=== PATIENT | female | born 1950 | race Caucasian/White ===

== ENCOUNTER 2025-02-12 13:04 | Outpatient (CLI) | payer MEDICARE, MEDICAID, SELFPAY ==
--- OUTSIDE RECORDS SUMMARY | 2025-02-12 13:15 | XMS_ITS | Clinical Summary ---
Author Organization [facility] Virtual Care Address [address] [place] [id number] Phone Care Team Providers Care Registered Account Administrator Name Role Phone Oumar Sarkar DO Primary Care Provider [phone] Osmin Guo MD Unavailable [phone] Oumar Kaur MD Unavailable [phone] Allergies Active Allergy Reactions Criticality Noted Date Comments Adhesive Rash Medium 08/24/2021 Codeine Vomiting Low Propoxyphene-Acetaminophen Vomiting Low 8 Latex Redness Medium 12/07/2017 Gloves Penicillins Rash Medium Sulfa (Sulfonamide Antibiotics) Rash Medium Ketorolac Vomiting Low 11/23/2017 Medications allopurinol (ZYLOPRIM) 300 mg tabletIndication s:prevention of acute gout attack Take 1 tablet (300 mg total) by mouth every morning 7 Active ALPRAZolam (XANAX) 0.25 mg tabletIndication s:anxiety Take 1 tablet (0.25 mg total) by mouth as needed 0 8 Active fluticasone (FLONASE) 50 mcg/actuation nasal sprayIndications :Allergic Rhinitis Administer 2 sprays into each nostril every morning 7 Active pregabalin (LYRICA) 50 mg capsuleIndicatio ns:Fibromyalgia, back pain, Joint pain Take 1 capsule (50 mg total) by mouth 3 (three) times a day Active meclizine (ANTIVERT) 25 mg tablet Take 1 tablet (25 mg total) by mouth daily Active metoprolol (LOPRESSOR) 100 mg tabletIndication s:hypertension Take 0.5 tablets (50 mg total) by mouth 2 (two) times a day 1 Active mupirocin (BACTROBAN) 2 % ointment APPLY TOPICALLY TO AFFECTED AREA TWICE DAILY FOR 10 DAYS. 1 Active nitroglycerin (NITROSTAT) 0.4 mg SL tablet DISSOLVE ONE TABLET UNDER THE TONGUE EVERY 5 MINUTES NEEDED FOR CHEST PAIN. DO NOT EXCEED A TOTAL OF 3 DOSES IN 15 MINUTES 1 Active omeprazole (PriLOSEC) 20 mg capsuleIndicatio ns:Treatment of Non-Bleeding Gastric Disorder Take 1 capsule (20 mg total) by mouth every morning 1 Active felodipine (PLENDIL) 5 mg 24 hr tabletIndication s:hypertension Take 1 tablet (5 mg total) by mouth every morning 1 Active ascorbic acid (VITAMIN C) 500 mg tablet,chewableI ndications:Vitam in C Deficiency Take 1 tablet/chew tab (500 mg total) by mouth every morning Active cholecalciferol (VITAMIN D-3) 25 mcg (1,000 unit) tabletIndication s:Vitamin D Deficiency Take 1 tablet (1,000 Units total) by mouth 2 (two) times a day Active cyanocobalamin (Vitamin B-12) 1,000 mcg tabletIndication s:Prevention of Vitamin B12 Deficiency Take 1 tablet (1,000 mcg total) by mouth every morning Active multivitamin capsuleIndicatio ns:Vitamin Deficiency Prevention Take 1 capsule by mouth every morning Active garlic 1,000 mg capsule Take 1 capsule by mouth as needed Active acetaminophen (TYLENOL) 500 mg tablet Take 1 tablet (500 mg total) by mouth every 6 (six) hours as needed for pain 240 tablet 2 Active lisinopriL (PRINIVIL,ZESTRI L) 20 mg tablet Take 1 tablet (20 mg total) by mouth daily 2 Active cyclobenzaprine (FLEXERIL) 10 mg tablet Take 1 tablet (10 mg total) by mouth nightly as needed for muscle spasms 30 tablet 2 2 Active rosuvastatin (CRESTOR) 10 mg tablet Take 1 tablet (10 mg total) by mouth daily 2 Active naloxone (NARCAN) 4 mg/actuation spray,non-aeroso l Administer 1 spray into affected nostril(s) as needed for opioid reversal or respiratory depression Call 911. Administer a single spray in one nostril. Repeat every 3 minutes as needed if no or minimal response. 1 each 2 Active furosemide (LASIX) 40 mg tablet 4 Active isosorbide mononitrate ER (IMDUR) 30 mg 24 hr tablet 4 Active semaglutide (OZEMPIC) 2 mg/dose (8 mg/3 mL) pen injector injection Inject 2 mg under the skin once a week 2 mL 6 5 Active oxyBUTYnin (DITROPAN) 5 mg tabletIndication s:Urinary urgency,Urinary frequency Take 1 tablet by mouth twice daily 180 tablet 5 Active Active Problems Problem Noted Date Diagnosed Date History of endometrial cancer 11/25/2023 Left hip pain 07/22/2022 Acute pain of both knees 07/22/2022 Lumbar facet arthropathy 03/30/2022 Endometrial cancer 07/07/2021 Overview (07/13/2021): Added automatically from request for surgery [id number] Trochanteric bursitis of right hip 05/04/2021 Cervicalgia 09/01/2020 Cervical radiculopathy 09/01/2020 Sacroiliitis 03/12/2020 Degenerative lumbar spinal stenosis 12/11/2019 DDD (degenerative disc disease), lumbar 12/11/19 20 Lumbar radiculopathy 12/11/2019 Insomnia secondary to chronic pain 12/11/2019 detention (current) use of opiate analgesic 05/15 Lumbar post-laminectomy [id number] d 06/20/2018 Fibromyalgia 06/20/2018 Chronic bilateral low back pain with right-sided sciatica 12/15/2017 Encounters Date Type Department Care Team Description 02/10/2025 Documentation [facility] [address] [facility] [address] [place] [address] Marv Ashraf MD 02/05/2025 12:13 PM CDT - 02/05/2025 11:59 PM CDT Hospital Encounter [facility] [address] [place] [address] Spinal stenosis, lumbar region without neurogenic claudication; Spinal stenosis, lumbar region with neurogenic claudication; Spondylosis without myelopathy or radiculopathy, lumbar region Discharge Disposition: Discharge to home or self care 01/31/2025 Telephone [facility] [address] [facility] [address] [place] [address] Marv Ashraf MD 12/11/2024 2:30 PM CDT Office Visit [facility] at [address] [place] [address] Zenon Ruvalcaba, Type 2 diabetes mellitus with other specified complication, without long-term current use of insulin (HCC) (Primary Dx); Diabetic polyneuropathy associated with type 2 diabetes mellitus (HCC); Hypertension associated with type 2 diabetes mellitus (HCC); Hyperlipidemia associated with type 2 diabetes mellitus (HCC) from Last 3 Months Immunizations Immunization Administration Dates Next Due Influenza, Quadrivalent, Hig h Dose, Preservative Free, Intrr 07/30/2021 Influenza, Quadrivalent, Spl it, Preservative Free, Intramuscular 06/25/2020,06/12/2019,07/02/2018,07/02 Pneumococcal Conjugate PCV 13 06/25/2020, 019 Surgical History Surgery Date Site/Laterality Comments LAMINECTOMY 08/14/1999 - 08/13/2000 BACK SURGERY NASAL SEPTUM SURGERY 08/14/2013 - 08/13/2014 placement septal button-s/p removal 2015 Medical History Medical History Date Comments Sleep apnea Fatigue Wears glasses Sinus infection Wears dentures Swelling of both ankles Frequent urination Numbness Hypertension Chronic pain disorder Pt. uses c ane Peripheral neuropathy Gout Endometrial cancer (HCC) 06/2021 Family History Medical History Relation Name Comments Heart attack Daughter Diabetes Father Heart disease Father Hypertension Father Lung cancer Father COD at age 72 Stroke Father Hypertension Mother Kidney disease Mother Diabetes Mother's Brother Hypertension Mother's Brother 4 MU's Diabetes Mother's Sister Hypertension Mother's Sister 2 MA's Arthritis Other Cancer Other Stroke Paternal Grandfather Relation Name Status Comments Daughter Father Mother Mother's Brother Mother's Sister Other Paternal Grandfather Social History Tobacco Use Types Packs/Day Years Used Date Smoking Tobacco: Former Cigarettes 0.5 10 1 970 - 1979 Smokeless Tobacco: Never Tobacco Cessation:Counseling Given: Not Answered Comments:quit 30 years ago Alcohol Use Standard Drinks/Week Comments No 0 (1 standard drink = 0.6 oz pur e alcohol) AUDIT-C Answer Date Recorded Q1: How often do you have a drink containing alc ohol? Never 08/27/2021 Q2: How many drinks containi ng alcohol do you have on a typical day when you are drinking? 1 or 2 08/27/2021 Q3: How often do you have six or more drinks on one occasion? Never 08/27/2021 PHQ-2 Answer Date Recorded PHQ-2 Total Score (If total score is 3 or more points, staff should administer the PHQ-9) 0 03/03/2021 Comments No Sex and Gender Information Value Date Recorded Sex Assigned at Not on file Legal Sex Female 1:36 PM SLATE ROOFER Gender Identity Not on file Sexual Orientation Not on file Occupation Industry Job Start Date Job End Date retired/disabled Not on file Not on file Not on file Obstetrics History Para Term AB IAB SAB Ectopic Multiple Livin g Live Births 2 2 2 0 0 0 0 0 1 2 2 Date Outcome GA Total Labor Labor/2nd/3rd Weight Sex Type Anes PTL Jacqueline A1 A5 Name Clin Term Term Last Filed Vital Signs Vital Sign Reading Time Taken Comments Blood Pressure 134/62 12/11/2024 2:29 PM CDT Pulse 67 12/11/2024 2:29 PM CDT Temperature 36.4 C (97.6 F) 06/04/2024 10:50 AM CDT Respiratory Rate 16 11/29/2023 10:45 AM CDT Oxygen Saturation 94% 06/04/2024 10:50 AM CDT Inhaled Oxygen Concentration - - Weight 129.5 kg (285 lb 8 oz) 12/11/2024 2:29 PM CDT Height 165.1 cm (5' 5) 12/11/2024 2:29 PM CDT Body Mass Index 47.51 12/11/2024 2:29 PM CDT Plan of Treatment Health Maintenance Due Date Last Done Comments Albumin Creatinine Ratio, Urine 1950 Breast Cancer Screening-Mammogram 1950 Osteoporosis Screening-Bone Density Scan 1950 Lipid Panel 1950 DTaP/Tdap/Td Vaccine (1 - Tdap) 1963 Hepatitis B Screening 1970 Zoster Vaccine (1 of 2) 2002 Well Visit 65+ 2017 Pneumococcal vaccine 65+ (2 of 2 - PPSV23) 08/20/2020 06/25/2020, 06/12/2019 Depression Screening 03/03/2022 03/03/2021, 11/25/2020, 11/25/2020, Additional history exists eGFR 08/24/2022 08/24/2021 Fall Risk Assessment 08/27/2022 08/27/2021 Covid-19 Vaccine ( - 2023-2 5 season) 2024 07/30/2021, 10/09/2020, 09/11/2020 Influenza Vaccine (#1) 2025 , 06/25/2020, 06/12/2019, Additional history exists Dilated Eye Exam 05/22/2025 05/22/2024 Hemoglobin A1C 06/12/2025 12/11/2024 Foot Exam 11/20/2025 11/20/2024 Colon Cancer Screening-Colonoscopy 08/18/2031 08/18/2021 Colon Cancer Screening-CT Colonography Discontinued 08/18/2021 Colon Cancer Screening-DNA Stool Discontinued 08/18/19 Colon Cancer Screening-FIT Discontinued 08/18/2021 Colon Cancer Screening-Sigmoidoscopy Discontinued 08/18/2021 Hepatitis C Screening Completed 08/27/2021 Goals Goal Patient Goal Type Associated Problems Recent Progress Patient-Stated? Author <enter goal here> General No change(2019 12:33 PM CDT) Yes Bing Aleman, RN Note: Walking Picking up grandchildren Bending Reaching Procedures Procedure Name Priority Date/Time Associated Diagnosis Comments EMG/NCV Routine 02/05/2025 1:53 PM CDT Spinal stenosis, lumbar region without neurogenic claudication Spinal stenosis, lumbar region with neurogenic claudication Spondylosis without myelopathy or radiculopathy, lumbar region POCT HEMOGLOBIN A1C Routine 12/11/2024 2 :35 PM CDT Diabetic polyneuropathy associated with type 2 diabetes mellitus (HCC) DIABETIC EYE EXAM Routine 05/22/2024 HEPATITIS C ANTIBODY Routine 08/27/2021 10:49 AM SLATE ROOFER EGFR Routine 08/24/2021 3:04 PM SLATE ROOFER Preoperative testing COLONOSCOPY 08/18/2021 3:16 PM SLATE ROOFER from Last 3 Months or Most Recently Relevant to Health Maintenance Results * EMG/NCV - (02/05/2025 1:53 PM CDT) Anatomical Region Laterality Modality EMG, EMG Impressions 02/05/2025 1:54 PM CDT History: This is a 74 years old female patient being evaluated for tingling and numbness of bilateral lower extremities. Nerve conduction studies: Left peroneal motor nerve conduction study when recording from the EDB showed normal DML, moderate low CMAP amplitude, normal motor nerve conduction velocity and absent F wave latency. Right peroneal motor nerve conduction study when recording from the EDB showed normal DML, moderately to severely low CMAP amplitudes when stimulated at ankle and below fibular head, no response when stimulated behind the knee, slightly slow motor nerve conduction velocity below the fibular head and normal F wave latency. Bilateral peroneal motor nerve conduction studies when recording from tibialis anterior showed normal DMLs, normal CMAP amplitudes, normal motor nerve conduction velocities. Left tibial motor nerve conduction study showed normal DML, markedly low CMAP amplitude when stimulated at ankle, no response when stimulated behind the knee, and normal F wave latency. Right tibial motor nerve conduction study did not induce any response. Bilateral sural and bilateral superficial peroneal antidromic sensory nerve conduction studies showed normal SNAP peak latencies, normal amplitudes and normal sensory nerve conduction velocities. Bilateral medial plantar and bilateral lateral plantar antidromic sensory nerve conduction studies did not induce any response. EMG studies: The concentric needle electrode examination was performed on bilateral tibialis anterior, gastrocnemius medialis, peroneus longus, vastus medialis and extensor digitorum brevis. There was no electrophysiologic evidence suggestive of acute or chronic denervation or reinnervation. The interference pattern is full in all muscle tested. Impression: This is an abnormal study. There was electrophysiologic evidence suggestive of: 1. 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 The needle EMG study of bilateral lower extremities did not show any ongoing denervation. Please note that the current study is complicated by edema of both feet and large bulk of lower extremities. It can cause similar abnormal finding or technical difficulty for the test. The clinical correlation is recommended. Davy Houser MD NEUROLOGY ORDERABLES Fin al Result * (ABNORMAL) POCT hemoglobin A1c (12/11/2024 2:35 PM CDT) Pathologist [facility] Hemoglobin A1C, POC 5.9(A) 4.0 - 5.6 % Blood 12/11/2024 2:35 PM CDT Zenon Ruvalcaba DO POINT OF CARE TEST ORDERABL ES Final Result * Diabetic Eye Exam (05/22/2024) 05/22/2024 Radha Bennett MD HEALTH MAINTENANCE Final Result * Hepatitis C antibody (08/27/2021 10:49 AM SLATE ROOFER) [facility] Hep C Ab Nonreactive Nonreactive [facility] Comment:Antibodies to HCV no t detected. Does NOT exclude the possibility of recent exposure to HCV. Blood 08/27/2021 10:4 9 AM SLATE ROOFER 08/27/2021 11:07 AM SLATE ROOFER Notinfile Unknown LAB MICROBIOLOGY - GENERAL ORD ERABLES Edited Result - Final [facility] Department [place] [address] * (ABNORMAL) eGFR (08/24/2021 3:04 PM SLATE ROOFER) [facility] eGFR 50(L) 90 - 130 mL/min/1. 73 m2 [facility] Comment: Interpretive Data Reference Interval Normal >/= 90 mL/min/1.73m2 Mildly decreased* 60 - 89 mL/min/1.73m2 Mildly to moderately decreased 45 - 59 mL/min/1.73m2 Moderately to severely decreased 30 - 44 mL/min/1.73m2 Severely decreased 15 - 29 mL/min/1.73m2 Kidney Failure < 15 mL/min/1.73m2 *Relative to young adult level Estimated glomerular filtration rate is determined by the 2020 CKD-EPI equation recommended by the National Kidney Foundation (A Unifying Approach to GFR Estimation: Recommendations of the NKF-ASK Task Force on Reassessing the Inclusion of Race in Diagnosing Kidney Disease, JASN 2020). The CKD-EPI equation should not be used for patients with unstable renal function and has not been validated in children and those over 70. Current interpretive data was last reviewed 2021. Blood 08/24/2021 3:04 PM SLATE ROOFER 08/24/2021 4:18 PM SLATE ROOFER us Jenae Ruiz MD LAB BLOOD ORDERABLE S Final Result [facility] Department [place] [address] * COLONOSCOPY (08/18/2021 3:16 PM SLATE ROOFER) Anatomical Region Laterality Modality Other Narrative Procedure Note Lo, Aydin Augustine MD - 08/18/2021 3:16 PM CST ENDOSCOPY LAB Patient Name: Antonia Mckenna Procedure Date: 08/18/2021 3:16 PM Date of : 1950 Admit Type: Outpatient Age: 70 Gender: Female Attending MD: Aydin Lo M.D. Room: [facility] ENDOSCOPY ROOM 02 Note Status: Addendum Procedure: Colonoscopy Indications: Screening patient at increased risk: Family historyof 1st-degree relative with colorectal cancer at age60 years (or older), This is the patient's first colonoscopy, Personal history of malignant uterine neoplasm Providers: Aydin Lo M.D. Referring MD: Osmin Guo M.D. Medicines: Monitored Anesthesia Care Complications: No immediate complications. Estimated Blood Loss: Estimated blood loss was minimal. Procedure: Pre-Anesthesia Assessment: - Immediately prior to administration ofmedications, the patient was re-assessed for adequacy to receive sedatives. - Sedation was administered by an anesthesia professional. The sedation level attained wasmoderate. - The heart rate, respiratory rate, oxygen saturations, blood pressure, adequacy of pulmonary ventilation, and response to care were monitored throughout the procedure. - The physical status of the patient wasre-assessed after the procedure. The benefits, risks and alternatives of theprocedure and sedation were discussed and informed consentwas obtained. All questions were answered. Please referto the signed informed consent document in the medical record. The scope was passed under direct vision.The [id number] was introduced through the anusand advanced to the cecum, identified by appendiceal orifice and ileocecal valve. The colonoscopy was somewhat difficult due to significant looping. Successful completion of the procedure was aided by straightening and shortening the scope to obtainbowel loop reduction. The patient tolerated the procedure well. The quality of the bowel preparation was excellent. The quality of the bowel preparation was evaluated using the BBPS ([place] Bowel Preparation Scale) with scores of: Right Colon = 3, Transverse Colon = 3 and Left Colon = 3 (entire mucosa seenwell with no residual staining, small fragments of stoolor opaque liquid). The total BBPS score equals 9.Bowel prep was administered using a split dose. Findings: Hemorrhoids were found on perianal exam. The digital rectal exam was normal. Pertinent negatives include no palpable rectal lesions. A 2 mm polyp was found in the cecum. The polyp was sessile. The polyp was removed with a jumbo cold forceps. Resection and retrieval were complete. A localized area of mildly nodular mucosa was found at the ileocecal valve. Biopsies were taken with a cold forceps for histology. Two sessile polyps were found in the transverse colon. The polypswere 2 to 4 mm in size. These polyps were removed with a jumbo cold forceps. Resection and retrieval were complete. Multiple small and large-mouthed diverticula were found in thesigmoid colon, descending colon and transverse colon. A 3 mm polyp was found in the descending colon. The polyp wassessile. The polyp was removed with a jumbo cold forceps. Resection andretrieval were complete. A 10 mm polyp was found in the sigmoid colon. The polyp was semi-pedunculated. The polyp was removed with a hot snare. Resectionand retrieval were complete. Non-bleeding external and internal hemorrhoids were found during retroflexion and during endoscopy. The hemorrhoids were moderate. The exam was otherwise without abnormality on direct and retroflexion views. Impression: - Hemorrhoids found on perianal exam. - One 2 mm polyp in the cecum, removed with a jumbo cold forceps. Resected and retrieved. - Nodular mucosa at the ileocecal valve.Biopsied. - Two 2 to 4 mm polyps in the transverse colon, removed with a jumbo cold forceps. Resected and retrieved. - Diverticulosis in the sigmoid colon, in the descending colon and in the transverse colon. - One 3 mm polyp in the descending colon, removedwith a jumbo cold forceps. Resected and retrieved. - One 10 mm polyp in the sigmoid colon, removedwith a hot snare. Resected and retrieved. - Non-bleeding external and internal hemorrhoids. - The examination was otherwise normal on directand retroflexion views. Recommendation: - Discharge patient to home. - Advance diet as tolerated and high fiber diet indefinitely. - Continue present medications. - Use fiber, for example Citrucel, Fibercon, Konsylor Metamucil. - Await pathology results. - Repeat colonoscopy date to be determined after pending pathology results are reviewed for surveillance based on pathology results. - For polyp and cancer prevention: Consider daily aspirin if OK with primary care provider; Calcium, folate, and vitamin D; healthy diet low inprocessed and red meats, exercise regularly, maintain healthy weight. See [facility] Cancer website for moreprevention tips. - Contact Information: During normal business hours (8AM-4PM) - Pleasecall the Nurse Coordinator: [phone]. call center associate physician after hours, weekends andholidays: [phone] and asked for the [facility]-Rectalphysician occupational therapist assistants. - A polyp or polyps were removed during your colonoscopy today. After the pathology result ofthe polyp(s) is reviewed, the doctor who performedyour colonoscopy will recommend follow-up colonoscopy to you based on current guidelines by gastroenterology societies: - If only small hyperplastic polyps from the rectumor sigmoid were removed, repeat the colonoscopy in 10 years. - If 1 or 2 polyps less than 1 cm in size are adenomas, repeat the colonoscopy in 5 years. - If 3 or more polyps are adenomas, repeat the colonoscopy in 3 years. - If there are 10 or more adenomas, repeat the colonoscopy in 1 year. - If any polyp is 10 mm or greater in size, has villous histology or high grade dysplasia,repeat the colonoscopy in 3 years. - If a polyp greater than 2 cm was removed with a piecemeal technique, repeat the colonoscopy in 6 months to be certain that there is no residualpolyp. - Sessile serrated polyps are treated like adenomas for surveillance purposes. Electronically signed by Aydin Lo MD Aydin Lo M.D. 08/18/2021 4:49:17 PM Number of Addenda: 1 Note Initiated On: 08/18/2021 3:16 PM Addendum Number: 1 Addendum Date: 08/18/2021 4:49:33 PM Colowrap was used to facilitate the colonoscopy. Electronically signed by Aydin Lo MD Aydin Lo M.D. 08/18/2021 4:49:50 PM Aydin Lo MD ENDOSCOPY PROCEDURES Edited Result - Final from Last 3 Months or Most Recently Relevant to Health Maintenance Insurance MEDICARE [facility] Address: [address] [address] [place] [address] [employer] [facility] H[facility]/PPO Address: [address] [address] [place] [address] [facility] MEDICARE ADVANTAGE MEDICARE [facility] Address: [address] [address] [place] [address] IDPA IDPA [facility] MEDICARE ADVANTAGE [facility] Address: [address] [address] [place] [address] [facility] MEDICARE ADVANTAGE IDPA Advance Directives For more information, please contact: [phone] * Full Code (Latest Code Status on File) Date Activated Date Inactivated Comments 08/18/2021 2:02 PM 08/18/2021 9:26 PM Care Teams Registered Account Administrator Relationship Specialty Start Date End Date Oumar Sarkar DO [address] [place] [address] PCP - General Family Practice 10/04/17 Osmin Guo MD [address] [place] [address] Consulting Physician Gynecologic Oncology 08/20/21 Oumar Kaur MD [address] [place] [address] [address] Anesthesiologist Pain Management 07/22/22
--- OUTSIDE RECORDS SUMMARY | 2025-02-12 13:15 | XMS_ITS | Referral Summary ---
Author Organization [facility] Virtual Care Address [address] [place] [address] Phone Care Team Providers Care Central Office Operator Supervisor Name Role Phone Oumar Sarkar DO Primary Care Provider [phone] Osmin Guo MD Unavailable [phone] Oumar Kaur MD Unavailable [phone] Encounters Date Type Department Care Team Description 02/10/2025 Documentation [facility] [address] [facility] [address] [place] [address] Marv Ashraf MD 02/05/2025 12:13 PM CDT - 02/05/2025 11:59 PM CDT Hospital Encounter [facility] [address] [place] [address] Spinal stenosis, lumbar region without neurogenic claudication; Spinal stenosis, lumbar region with neurogenic claudication; Spondylosis without myelopathy or radiculopathy, lumbar region Discharge Disposition: Discharge to home or self care 01/31/2025 Telephone [facility] [address] [place] [address] [address] [place] [address] Marv Ashraf MD 12/11/2024 2:30 PM CDT Office Visit [facility] at [address] [place] [id number] Zenon Ruvalcaba, Type 2 diabetes mellitus with other specified complication, without long-term current use of insulin (HCC) (Primary Dx); Diabetic polyneuropathy associated with type 2 diabetes mellitus (HCC); Hypertension associated with type 2 diabetes mellitus (HCC); Hyperlipidemia associated with type 2 diabetes mellitus (HCC) from Last 3 Months Allergies Active Allergy Reactions Criticality Noted Date [...] (5 mg total) by mouth every morning 11/20/202 1 Active ascorbic acid (VITAMIN C) 500 [...] (07/13/2021): Added automatically from request for surgery [id number] Trochanteric bursitis of right hip 05/04/2021 Cervicalgia 09/01/2020 Cervical radiculopathy 09/01/2020 Sacroiliitis 03/12/2020 Degenerative lumbar spinal stenosis 12/11/2019 DDD (degenerative disc disease), lumbar 12/11/19 20 Lumbar radiculopathy 12/11/2019 Insomnia secondary to chronic pain 12/11/2019 detention (current) use of opiate analgesic 05/15 Lumbar post-laminectomy hffaeoop-xva-wcodciwxktx d 06/20/2018 Fibromyalgia 06/20/2018 Chronic bilateral low back pain with right-sided sciatica 12/15/2017 Immunizations Immunization Administration Dates Next Due Influenza, Quadrivalent, Hig h Dose, Preservative Free, Intrr 07/30/2021 Influenza, Quadrivalent, Spl it, Preservative Free, Intramuscular 06/25/2020,06/12/2019,07/02/2018,07/02 Pneumococcal Conjugate PCV 13 06/25/2020, 019 Social History Tobacco Use Types Packs/Day Years Used Date Smoking Tobacco: Former Cigarettes 0.5 10 1 970 - 1980 Smokeless Tobacco: Never Tobacco Cessation:Counseling Given: Not [...] on file Legal Sex Female 1:36 PM SOCIAL MEDIA CONTENT MANAGER Gender Identity Not on file Sexual Orientation Not on file Occupation Industry Job Start Date Job End Date retired/disabled Not on file Not on file Not on file Last Filed Vital Signs Vital Sign Reading [...] 12/11/2024 2:29 PM CDT Plan of Treatment Not on file Goals Goal Patient Goal Type Associated Problems Recent Progress Patient-Stated? Author <enter goal here> General No change(2019 12:33 PM CDT) Yes Bing Aleman, ANTHONY Note: Walking Picking up grandchildren Bending Reaching [...] HEPATITIS C ANTIBODY Routine 08/27/2021 10:49 AM SOCIAL MEDIA CONTENT MANAGER EGFR Routine 08/24/2021 3:04 PM SOCIAL MEDIA CONTENT MANAGER Preoperative testing COLONOSCOPY 08/18/2021 3:16 PM SOCIAL MEDIA CONTENT MANAGER from Last 3 Months or Most Recently [...] the test. The clinical correlation is recommended. us Davy Houser MD NEUROLOGY ORDERABLES Fin al Result * (ABNORMAL) POCT hemoglobin A1c (12/11/2024 2:35 PM CDT) Pathologist [facility] Hemoglobin A1C, POC 5.9(A) 4.0 - 5.6 % Blood 12/11/2024 2:35 PM CDT Zenon Ruvalcaba DO POINT OF CARE TEST ORDERABL ES Final Result * Diabetic Eye Exam (05/22/2024) 05/22/2024 Historical Provider HEALTH MAINTENANCE Final Result * Hepatitis C antibody (08/27/2021 10:49 AM SOCIAL MEDIA CONTENT MANAGER) Pathologist [facility] Hep C Ab Nonreactive Nonreactive [facility] Comment:Antibodies to HCV no t detected. Does NOT exclude the possibility of recent exposure to HCV. Blood 08/27/2021 10:4 9 AM SOCIAL MEDIA CONTENT MANAGER 08/27/2021 11:07 AM SOCIAL MEDIA CONTENT MANAGER Notinfile Unknown LAB MICROBIOLOGY - GENERAL ORD ERABLES Edited Result - Final [facility] Department [place] [address] * (ABNORMAL) eGFR (08/24/2021 3:04 PM SOCIAL MEDIA CONTENT MANAGER) Pathologist [facility] eGFR 50(L) 90 - 130 mL/min/1. [address] [facility] Comment: Interpretive Data Reference Interval Normal >/= [...] last reviewed 2021. Blood 08/24/2021 3:04 PM SOCIAL MEDIA CONTENT MANAGER 08/24/2021 4:18 PM SOCIAL MEDIA CONTENT MANAGER us Jenae Ruiz MD LAB BLOOD ORDERABLE S Final Result [facility] Department [place] [address] * COLONOSCOPY (08/18/2021 3:16 PM SOCIAL MEDIA CONTENT MANAGER) Anatomical Region Laterality Modality Other Narrative Procedure Note Aydin Lo MD - 08/18/2021 3:16 PM CST ENDOSCOPY LAB Patient Name: Antonia Mckenna Procedure Date: 08/18/2021 3:16 PM Date of : 1950 Admit Type: Outpatient Age: 70 Gender: Female Attending MD: Aydin Lo M.D. Room: [facility] ENDOSCOPY ROOM 02 Note Status: Addendum [...] The scope was passed under direct vision.The [id number] was introduced through the anusand advanced to [...] bowel preparation was evaluated using the BBPS ([place] Bowel Preparation Scale) with scores of: Right [...] meats, exercise regularly, maintain healthy weight. See [facility] Cancer website for moreprevention tips. - Contact Information: During normal business hours (8AM-4PM) - Pleasecall the Nurse Coordinator: [phone]. bilingual call center representative physician after hours, weekends andholidays: [phone] and asked for the [place]-Rectalphysician transportation analyst. - A polyp or polyps were removed [...] MD Aydin Lo M.D. 08/18/2021 4:49:50 PM us Aydin Lo MD ENDOSCOPY PROCEDURES Edited Result - Final from Last 3 Months or Most Recently Relevant to Health Maintenance Insurance MEDICARE IDPA [facility] CHOICE [facility] HMO/PPO Address: [address] [address] [place] [address] [facility] MEDICARE ADVANTAGE MEDICARE [facility] Address: [address] [address] [place] [address] IDPA IDPA [facility] MEDICARE ADVANTAGE [facility] MEDICARE ADVANTAGE IDPA Advance Directives For more information, please contact: [phone] * Full Code (Latest Code Status on File) Date Activated Date Inactivated Comments 08/18/2021 2:02 PM 08/18/2021 9:26 PM Care Teams Central Office Operator Supervisor Relationship Specialty Start Date End Date Oumar Sarkar DO [address] [place] [address] PCP - General Family Practice 10/04/17 Osmin Guo MD [address] [place] [address] Consulting Physician Gynecologic Oncology 08/20/21 Oumar Kaur MD 2 [facility] [address] [address] Anesthesiologist Pain Management 07/22/22
--- OUTSIDE RECORDS SUMMARY | 2025-02-12 13:16 | XMS_ITS | Continuity of Care Document ---
Author Organization [facility] Address [address] [place] [address] Care Team Providers Care Nascar Racer Name Role Phone Oumar Sarkar Primary Care Physician Rocio Lynch Unavailable Unavailable Encounter [facility] Date(s): 02/11/25 - 02/11/[address] [address] Encounter Diagnosis Right knee pain(Discharge Diagnosis) - 02/11/25 Discharge Disposition: Home or Self Care Attending Physician: Zackery Wright PA-C Referring Physician: Zackery Wright PA-C Encounter Type: Outpatient Allergies, Adverse Reactions, Alerts Substance Criticality Severity Reaction Reaction Severity Status codeine Unable to assess criticality Unknown Active azithromycin Low criticality Mild Diarrheal di sorder Vomiting Nausea Active penicillin Unable to assess criticality Unknown Active Percocet High criticality Moderate Act [place] sulfa drugs Unable to assess criticality Unknown Active Latex Unable to assess criticality Unknown Active levoFLOXacin Unable to assess criticality Unknown Active Assessment and Plan Future Appointments Appointment Date:02/25/2025 02:00:00 PM Scheduled Provider:Lala Fernandez DPM Location:[facility] Podiatry Appointment Type:Diabetic At Risk Foot Care ([facility]) Appointment Date:04/21/2025 03:15:00 PM Scheduled Provider: Location:[facility] Card Appointment Type:Heart Center Follow Up ([facility]) Future Scheduled Tests Laboratory* Comprehensive Metabolic Panel 10/21/24 * Lipid Panel 10/21/24 Radiology* US Echo Complete w/ Contrast if needed 04/23/25 Immunizations Given and Recorded Vaccine Date Status Refusal Reason influenza virus vaccine, inactivated 05/17/24 Lyndon rded influenza virus vaccine, inactivated 07/30/21 Lyndon rded influenza virus vaccine, inactivated 06/25/20 Lyndon rded influenza virus vaccine, inactivated 06/12/19 Lyndon rded influenza virus vaccine, inactivated 07/02/18 Lyndon rded SARS-CoV-2 (COVID-19) mRNA-1273 vaccine 07/30/21 R ecorded SARS-CoV-2 (COVID-19) mRNA-1273 vaccine 10/09/20 R ecorded SARS-CoV-2 (COVID-19) mRNA-1273 vaccine 09/11/20 R ecorded pneumococcal 13-valent conjugate vaccine 06/25/20 Recorded pneumococcal 13-valent conjugate vaccine 06/12/19 Recorded Medications allopurinol 300 mg oral tablet = 1 tab, Oral, Daily, # 90 tab, 0 Refill(s), Pharmacy: [facility] [id number] Start Date: 11/26/24 Status: Ordered Quantity: 90.0 Unit: Repeat number: 1 felodipine 5 mg oral tablet, extended release = 1 tab, Oral, Daily, # 90 tab, 0 Refill(s), Pharmacy: [facility] [address] Start Date: 11/25/24 Status: Ordered Quantity: 90.0 Unit: Repeat number: 1 furosemide 40 mg oral tablet = 1 tab, Oral, Daily, # 90 tab, 0 Refill(s), Pharmacy: [facility] [address] Start Date: 11/25/24 Status: Ordered Quantity: 90.0 Unit: Repeat number: 1 isosorbide mononitrate 60 mg oral tablet, extended release = 1 tab, Oral, every morning, # 90 tab, 0 Refill(s), Pharmacy: [facility] [address] Start Date: 11/25/24 Status: Ordered Quantity: 90.0 Unit: Repeat number: 1 lisinopril 20 mg oral tablet = 1 tab, Oral, Daily, # 90 tab, 0 Refill(s), Pharmacy: [facility] [address] Start Date: 12/23/24 Status: Ordered Quantity: 90.0 Unit: Repeat number: 1 Metoprolol Tartrate 100 mg oral tab = 1.5 tab, Oral, BID, # 270 tab, 0 Refill(s), Pharmacy: [facility] [address] Start Date: 11/26/24 Status: Ordered Quantity: 270.0 Unit: Repeat number: 1 omeprazole 20 mg oral delayed release capsule = 1 cap, Oral, Daily, # 90 cap, 0 Refill(s), Pharmacy: [facility] [address] Start Date: 11/26/24 Status: Ordered Quantity: 90.0 Unit: Repeat number: 1 ONE TOUCH VERIO TEST STRIPS ONE TOUCH VERIO TEST STRIPS, See Instructions, USE ONE STRIP TO CHECK BLOOD SUGAR THREE TIMES A DAY, # 100 EA, 6 Refill(s), Pharmacy: [facility] [address] Start Date: 12/31/24 Status: Ordered Quantity: 100.0 Unit: Repeat number: 7 Indications: Type 2 diabetes mellitus without complications; OneTouch Verio In Vitro Strip OneTouch Verio In Vitro Strip, See Instructions, Use to test glucose three times a day, # 100 EA, 3Refill(s), Pharmacy: [facility] [address] Start Date: 01/13/25 Status: Ordered Quantity: 100.0 Unit: Repeat number: 4 ONETOUCH VERIO KEYUR ONETOUCH VERIO KEYUR, See Instructions, USE STRIP TO CHECK GLUCOSE THREE TIMES DAILY, # 100 EA, 0 Refill(s), Pharmacy: [facility] [address] Start Date: 04/24/24 Status: Ordered Quantity: 100.0 Unit: Repeat number: 1 ONETOUCH VERIO KEYUR ONETOUCH VERIO KEYUR, See Instructions, USE 1 STRIP TO CHECK GLUCOSE THREE TIMES DAILY, # 100 EA, 0 Refill(s), Pharmacy: [facility] [address] Start Date: 05/09/24 Status: Ordered Quantity: 100.0 Unit: Repeat number: 1 oxyBUTYnin 5 mg oral tablet 180 EA, 0 Refill(s), TAKE 1 TABLET BY MOUTH TWICE DAILY, 0 Refill(s) Start Date: 03/11/24 Status: Ordered Repeat number: 1 Ozempic 8 mg/3 mL (2 mg dose) subcutaneous solution 3 mL, 0 Refill(s), INJECT 2 MG SUBCUTANEOUSLY ONCE A WEEK, 0 Refill(s) Start Date: 02/11/25 Status: Ordered Repeat number: 1 pregabalin 50 mg oral capsule = 1 cap, Oral, TID, # 270 cap, 1 Refill(s), Pharmacy: [facility] [id number] Start Date: 12/23/24 Status: Ordered Quantity: 270.0 Unit: Repeat number: 2 rosuvastatin 10 mg oral tablet = 1 tab, Oral, Daily, # 100 tab, 1 Refill(s), Pharmacy: [facility] Start Date: 02/05/25 Status: Ordered Quantity: 100.0 Unit: Repeat number: 1 Symbicort 160 mcg-4.5 mcg/inh inhalation aerosol 2 inh, Inhale, BID, # 30 gm, 0 Refill(s), Pharmacy: [facility] Start Date: 01/08/25 Status: Ordered Quantity: 30.0 Unit: g Repeat number: 1 Problem List Condition Confirmation Course Effective Dates Status Health St atus Informant Acute URI Confirmed Active Otalgia of both ears Confirmed Active Morbid obesity Confirmed Active Vasospastic angina Confirmed Active Diagnosis Diagnosis Type Effective Dates Health Status Cl inical Service Informant Right knee pain Discharge Diagnosis 02/11/25 Non-Specified Procedures Procedure Date Related Diagnosis Body Site Status Cardiac catheter 1 05/20/21 Comple melissa Hysterectomy and bilateral salpingo-oophorectomy sample Com pleted 1Normal EF, Right Dominant, LM mild irregular dz, LAD mild diffuse dz w/ narrowing, Dg Small caliberw/ mild diffuse dz, CFX small but improved w/ IC NTG. Results Radiology Reports * Exam Date Time Procedure Performing Provider Status 02/11/25 1:44 PM XR Knee Complete 4+ Views Right Auth (Verified) Notes: (XR Knee Complete 4+ Views Right) Reason For Exam: RT KNEE PAIN XR Knee Complete 4+ Views Right Exam: XR Knee Complete 4+ Views Right Ordering Provider: Zackery Wright Order Date: 02/11/2025 History: RT KNEE PAIN COMPARISON: Right knee radiograph performed 21 July 2022. Number of views: 4 views FINDINGS: Bones: No fracture or dislocation is present. Joints: There is mild tricompartmental joint space loss, most notable at the medial tibiofemoral compartment. Soft tissue: Normal. 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 Overall appearance is similar to 2021 study. Final Signed by: Titus Rudolph MD Signed (Electronic Signature): 02/11/2025 1:48 pm Social History Social History Type Response Smoking Status Never (less than 100 in lifetime) entered on: 06/07/24 Sex Female Sex Representation Female (finding) Patient Care team information Care Team [facility]nel [facility] Position: Ambulatory - Home Restoration Service Supervisor Member Role: Home Restoration Service Supervisor Name: Oumar Sarkar DO Position: Physician Member Role: Informed Provider Address: [address] [place] [address] Telecom: Care Team Related Persons Name: NEGIN ACEVEDO Name: LEONARDO WAY Insurance Providers Guarantor name: ANTONIA Lindsay DUARTE Compliance Control Plan Information #: 1 Payer: [facility] Medicare Solutions Payer Identifier: NA Member Number: [id number] Group Number: [id number] Subscriber Identifier: [id number] Relationship to Subscriber: self Coverage Type: MEDICARE Coverage Verification Date: NA Telecom: NA Address: [address] [address] [place] [address]- Health Plan Information #: 2 Payer: Medicaid of [place] Payer Identifier: NA Member Number: [id number] Group Number: NA Subscriber Identifier: [id number] Relationship to Subscriber: self Coverage Type: MEDICAID Coverage Verification Date: NA Telecom: NA Address: [address] [address] [place], [place] [address]
--- OUTSIDE RECORDS SUMMARY | 2025-02-12 13:16 | XMS_ITS ---
Author Organization [facility] Virtual Care Address [address] [place] [address] Phone Care Team Providers Care Gas Reverser Name Role Phone Oumar Sarkar DO Primary Care Provider [phone] Osmin Guo MD Unavailable [phone] Oumar Kaur MD Unavailable [phone] Active Problems Problem Noted Date Diagnosed Date History of endometrial cancer 11/25/2023 Left hip pain 07/22/2022 Acute pain of both knees 07/22/2022 Lumbar facet arthropathy 03/30/2022 Endometrial cancer 07/07/2021 Overview (07/13/2021): Added automatically from request for surgery [id number] Trochanteric bursitis of right hip 05/04/2021 Cervicalgia 09/01/2020 Cervical radiculopathy 09/01/2020 Sacroiliitis 03/12/2020 Degenerative lumbar spinal stenosis 12/11/2019 DDD (degenerative disc disease), lumbar 12/11/19 20 Lumbar radiculopathy 12/11/2019 Insomnia secondary to chronic pain 12/11/2019 [facility] (current) use of opiate analgesic 05/15 Lumbar post-laminectomy qelfkwmo-lsi-bumqchohebu d 06/20/2018 Fibromyalgia 06/20/2018 Chronic bilateral low back pain with right-sided sciatica 12/15/2017 Current Treatment and Therapy Plans No current plan information found. Past Treatment and Therapy Plans No past plan information found. Lifetime Dose Tracking * Chemical Lifetime Dose Automatic Entry Manual Entr y Fluoro Time 1.348 minutes 1.348 minutes 0 minutes Air kerma at the reference point (Ka,r) 72.43 mGy 7 2.43 mGy 0 mGy DLP 967 mGycm 967 mGycm 0 mGycm
--- NOTE | 2025-02-12 14:16 | ECG_ITS ---
Test Date: 2025-02-12 14:37:17 Measurements Intervals [place] Rate: 54 P: -18 SD: 159 QRS: -7 QRSD: 94 T: -2 QT: 404 QTc: 383 Interpretive Statements SINUS BRADYCARDIA LEFT AXIS DEVIATION LOW QRS VOLTAGE IN PRECORDIAL LEADS [QRS DEFLECTION < 1.0 mV IN CHEST LEADS] POSSIBLE ANTERIOR MYOCARDIAL INFARCTION [30 ms Q WAVE IN V3/V4, OR R < 0.2 mV IN V4], OF INDETERMINATE AGE No previous ECG available for comparison Electronically Signed On 02-13-2025 16:33:29 CDT by George Burnett
[2025-02-12 14:54] LABS: Hematocrit 37.6 % (37.0-47.0); Hemoglobin 11.9 g/dL (12.0-15.0); Mean Corpuscular HGB Conc 31.6 g/dl (32-36); Mean Corpuscular Hemoglobin 30.1 pg (26-34); Mean Corpuscular Volume 95.2 fl (80-100); Platelet Count Result 226 k/mm3 (150-375); Red Blood Count 3.95 M/mm3 (4.2-5.4); White Blood Count 6.7 K/mm3 (4.5-10.0)
[2025-02-12 15:07] LABS: Anion Gap 7 mmol/L (4-12); Blood Urea Nitrogen 33 mg/dL (7-17); Calcium 9.5 mg/dL (8.4-10.2); Carbon Dioxide 33 mmol/L (22-30); Chloride 100 mmol/L (98-107); Estimated Glomerular Filt Rate 45; Glucose 134 mg/dL (65-110); Potassium 4.0 mmol/L (3.4-5.0); Sodium 140 mmol/L (137-145)
[2025-02-12 15:12] LABS: INR 1.0; Partial Thromboplastin Time 28.4 Seconds (22.3-36.8); Prothrombin Time 13.5 Seconds (11.1-14.7)
[2025-02-12 15:14] LABS: Add Urine Microscopic? YES; Appearance Urine Clear (Clear); Glucose Urine UA Negative (Negative); Leukocyte Esterase Ur 1+ LEU/UL (Negative); Need Manual Microscopic Reviewed; Nitrate Urine Negative (Negative); Non Pathogenic Casts 0-2; Specific Grav Ur 1.024 (1.001-1.035)
[2025-02-12 15:57] LABS: Hemoglobin A1C. 6.2 % (<5.7)
== END 2025-02-12 13:05 | disposition home or self-care (01) ==
PROVIDERS: PCP Family Medicine; Visit Provider Neurological Surgery
DX: M48.062 Spinal stenosis, lumbar region with neurogenic claudication (principal); I10 Essential (primary) hypertension; E78.5 Hyperlipidemia, unspecified; Z01.818 Encounter for other preprocedural examination
CPT/HCPCS: 36415; 80048; 81001; 83036; 85027; 85610; 85730; 93005

== ENCOUNTER 2025-02-19 12:08 | Observation (INO) | payer MEDICARE, MEDICAID, SELFPAY ==
[2025-02-12 13:31] VITALS: BP 124/74; PULSE 56; RESP 16; TEMP 36.4; O2SAT 95; BMI 47.8
--- NOTE | 2025-02-12 13:57 | PC.NURSE ---
Report to the Outpatient Waiting Room, entrance under the green pavilion located off [facility], at time __1100am on date _02/18/25 . Planned Procedure Time: __1:00pm .? Time changes happen often and if your time is changed the preop area will call you the afternoon before. - You and your visitor will be asked to self-screen and do not enter if you have any COVID symptoms. Please call surgeon if you need to reschedule. - A mask is optional within the hospital at this time. Patients may have clear liquids (water, carbonated beverages, clear teas, apple juice) until 3 hours prior to surgery with a maximum of 20 ounces. - No food from midnight until time of surgery and no smoking, or chewing tobacco (or any form of nicotine). No chewing gum, candy or mints. (10:00am) Take only the following medications with a SIP of water on the morning of surgery: ___Felodipine, Isosorbide and Pregabalin DO NOT STOP ANY OF YOUR OTHER PRESCRIPTION MEDICATIONS PRIOR TO SURGERY EXCEPT THE FOLLOWING Hold all vitamins, herb, probiotics, and supplements for 3 days per anesthesiologist. Date of last dose 02/14/25 Medications to discontinue per physician HOLD ALL ASPIRIN, NSAIDS, MOTRIN,ALEVE, for 7 days Date to take last dose___02/09/25 Please no make-up, nail arabic, hairspray, perfume, deodorant, or body powder the day of surgery.? No jewelry (including any body piercings) or valuables the day of surgery, leave them at home.? Please take a shower or bath the night before, or the morning of, surgery with an antibacterial soap.? Wear comfortable, loose fitting clothing. - Jewelry must be removed prior to entering the operating room.? Rings and piercings that are not removed may be cut off. - The hospital will not accept responsibility for valuables.? - Please leave all valuables, including medications, at home the day of surgery. If you are going home after surgery, a licensed shuttle bus driver must drive you home.? - NO public transportation without another adult if you receive anesthesia. - We recommend that an adult stay with you for 24 hours following discharge. - We also recommend that you do not drive, make important decision, drink alcoholic beverages, or take any drugs that were not prescribed by your health care provider for at least 24 hours after your discharge time. Follow any additional instructions given to you from your surgeon. Telephone instructions given to ___Patient and asked if any additional questions and then verbalized understanding. Patient advised to call surgeon office or pre surgery nurse liaison [phone] if any additional questions.
[2025-02-18] VITALS (17 sets, daily range): BP systolic 102–141; BP diastolic 48–73; PULSE 58–82; RESP 14–22; TEMP 35.6–36.7; O2SAT 94–100
--- OUTSIDE RECORDS SUMMARY | 2025-02-18 02:39 | XMS_ITS ---
Author Organization [facility] Virtual Care Address [address] [place] [id number] Phone Care Team Providers Care Transit Planning Director Name Role Phone Oumar Sarkar DO Primary Care Provider [phone] Osmin Guo MD Unavailable [phone] Oumar aKur MD Unavailable [phone] Active Problems Problem Noted Date Diagnosed Date History of endometrial cancer 11/25/2023 Left hip pain 07/22/2022 Acute pain of both knees 07/22/2022 Lumbar facet arthropathy 03/30/2022 Endometrial cancer 07/07/2021 Overview (07/13/2021): Added automatically from request for surgery [id number] Trochanteric bursitis of right hip 05/04/2021 Cervicalgia 09/01/2020 Cervical radiculopathy 09/01/2020 Sacroiliitis 03/12/2020 Degenerative lumbar spinal stenosis 12/11/2019 DDD (degenerative disc disease), lumbar 12/11/19 20 Lumbar radiculopathy 12/11/2019 Insomnia secondary to chronic pain 12/11/2019 senior living (current) use of opiate analgesic 05/15 Lumbar post-laminectomy kdmhaiyx-ume-bjxprvffqzy d 06/20/2018 Fibromyalgia 06/20/2018 Chronic bilateral low [...]
--- OUTSIDE RECORDS SUMMARY | 2025-02-18 02:39 | XMS_ITS | Clinical Summary ---
Author Organization [facility] Virtual Care Address [address] [place] [phone] Phone Care Team Providers Care Information Technology Program Manager Name Role Phone Oumar Sarkar DO Primary Care Provider [phone] Osmin Guo MD Unavailable [phone] Oumar Kaur MD Unavailable [phone] Allergies Active Allergy Reactions Criticality Noted Date [...] (07/13/2021): Added automatically from request for surgery [id number] Trochanteric bursitis of right hip 05/04/2021 Cervicalgia 09/01/2020 Cervical radiculopathy 09/01/2020 Sacroiliitis 03/12/2020 Degenerative lumbar spinal stenosis 12/11/2019 DDD (degenerative disc disease), lumbar 12/11/19 20 Lumbar radiculopathy 12/11/2019 Insomnia secondary to chronic pain 12/11/2019 penitentiary (current) use of opiate analgesic 05/15 Lumbar post-laminectomy rcjcgwop-skn-ofdlnvsticc d 06/20/2018 Fibromyalgia 06/20/2018 Chronic bilateral low back pain with right-sided sciatica 12/15/2017 Encounters Date Type Department Care Team Description 02/10/[address] [facility] [address] [facility] [address] [place] [address] Marv Ashraf MD 02/05/2025 12:13 PM CDT - 02/05/2025 11:59 PM CDT Hospital Encounter [facility] Neurological Disorders Testing [address] [place] [address] Spinal stenosis, lumbar region without neurogenic claudication; Spinal stenosis, lumbar region with neurogenic claudication; Spondylosis without myelopathy or radiculopathy, lumbar region Discharge Disposition: Discharge to home or self care 01/31/[address] [facility] [address] [facility] [address] [place] [address] Marv Ashraf MD 12/11/2024 2:30 PM CDT Office Visit [facility] at [address] [place] [address] Zenon Ruvalcaba, Type 2 diabetes [...] on file Legal Sex Female 1:36 PM SPECIAL EDUCATION ASSOCIATE Gender Identity Not on file Sexual Orientation [...] HEPATITIS C ANTIBODY Routine 08/27/2021 10:49 AM SPECIAL EDUCATION ASSOCIATE EGFR Routine 08/24/2021 3:04 PM SPECIAL EDUCATION ASSOCIATE Preoperative testing COLONOSCOPY 08/18/2021 3:16 PM SPECIAL EDUCATION ASSOCIATE from Last 3 Months or Most Recently [...] hemoglobin A1c (12/11/2024 2:35 PM CDT) Pathologist [facility] Hemoglobin A1C, POC 5.9(A) 4.0 - 5.6 % Blood 12/11/2024 2:35 PM CDT Zenon Ruvalcaba DO POINT OF CARE TEST ORDERABL ES Final Result * Diabetic Eye Exam (05/22/2024) 05/22/2024 Radha Bennett MD HEALTH MAINTENANCE Final Result * Hepatitis C antibody (08/27/2021 10:49 AM SPECIAL EDUCATION ASSOCIATE) [facility] Hep C Ab Nonreactive Nonreactive [facility] Comment:Antibodies to HCV no t detected. Does NOT exclude the possibility of recent exposure to HCV. Blood 08/27/2021 10:4 9 AM SPECIAL EDUCATION ASSOCIATE 08/27/2021 11:07 AM SPECIAL EDUCATION ASSOCIATE Notinfile Unknown LAB MICROBIOLOGY - GENERAL ORD ERABLES Edited Result - Final [facility] Department [place] [address] * (ABNORMAL) eGFR (08/24/2021 3:04 PM SPECIAL EDUCATION ASSOCIATE) [facility] eGFR 50(L) 90 - 130 mL/min/1. 73 [...] last reviewed 2021. Blood 08/24/2021 3:04 PM SPECIAL EDUCATION ASSOCIATE 08/24/2021 4:18 PM SPECIAL EDUCATION ASSOCIATE us Jenae Ruiz MD LAB BLOOD ORDERABLE S Final Result [facility] Department [place] [address] * COLONOSCOPY (08/18/2021 3:16 PM SPECIAL EDUCATION ASSOCIATE) Anatomical Region Laterality Modality Other Narrative Procedure Note Lo, Aydin Augustine MD - 08/18/2021 3:16 PM CST ENDOSCOPY LAB Patient Name: Antonia Mckenna Procedure Date: 08/18/2021 3:16 PM Date of : 1950 Admit Type: Outpatient Age: 70 Gender: Female Attending MD: yAdin Lo M.D. Room: [facility] ENDOSCOPY ROOM 02 Note Status: Addendum [...] The scope was passed under direct vision.The [id number] was introduced through the anusand advanced to [...] bowel preparation was evaluated using the BBPS ([place] Bowel Preparation Scale) with scores of: Right [...] meats, exercise regularly, maintain healthy weight. See [facility] website for moreprevention tips. - Contact Information: During normal business hours (8AM-4PM) - Pleasecall the Nurse Coordinator: [phone]. bingo caller physician after hours, weekends andholidays: [phone] and asked for the [place]-Rectalphysician asset protection officer. - A polyp or polyps were removed [...] Recently Relevant to Health Maintenance Insurance MEDICARE [facility] Address: [address] [address] [place] [address] [employer] [facility] CHOICE PLUS [facility] MEDICARE ADVANTAGE MEDICARE [facility] Address: [address] [address] [place] [address] IDPA IDPA [facility] MEDICARE ADVANTAGE [facility] MEDICARE ADVANTAGE IDPA Advance Directives For more information, please contact: [phone] * Full Code (Latest Code Status on File) Date Activated Date Inactivated Comments 08/18/2021 2:02 PM 08/18/2021 9:26 PM Care Teams Information Technology Program Manager Relationship Specialty Start Date End Date Oumar Sarkar DO [address] [place] [address] PCP - General Family Practice 10/04/17 Osmin Guo MD [address] [place] [address] Consulting Physician Gynecologic Oncology 08/20/21 Oumar Kaur MD [address] [place] [address] [address] Anesthesiologist Pain Management 07/22/22
--- OUTSIDE RECORDS SUMMARY | 2025-02-18 02:39 | XMS_ITS | Referral Summary ---
Author Organization [facility] Virtual Care Address [address] [place] [phone] Phone Care Team Providers Care Gravity Prospecting Operator Name Role Phone Oumar Sarkar DO Primary Care Provider [phone] Osmin Guo MD Unavailable [phone] Oumar Kaur MD Unavailable [phone] Encounters Date Type Department Care Team Description 02/10/2025 Documentation [facility] [address] [facility] [address] [place] [address] Marv Ashraf MD 02/05/2025 12:13 PM CDT - 02/05/2025 11:59 PM CDT Hospital Encounter [facility] Neurological Disorders Testing 1 [place] [address] Spinal stenosis, lumbar region without neurogenic claudication; Spinal stenosis, lumbar region with neurogenic claudication; Spondylosis without myelopathy or radiculopathy, lumbar region Discharge Disposition: Discharge to home or self care 01/31/2025 Telephone [facility] [address] [place] [address] [address] [place] [address] Marv Ashraf MD 12/11/2024 2:30 PM CDT Office Visit [facility] Diabetes Endocrine Care at [address] [place] [id number] Zenon Ruvalcaba, Type 2 diabetes mellitus with [...] (07/13/2021): Added automatically from request for surgery [id number] Trochanteric bursitis of right hip 05/04/2021 Cervicalgia 09/01/2020 Cervical radiculopathy 09/01/2020 Sacroiliitis 03/12/2020 Degenerative lumbar spinal stenosis 12/11/2019 DDD (degenerative disc disease), lumbar 12/11/19 20 Lumbar radiculopathy 12/11/2019 Insomnia secondary to chronic pain 12/11/2019 care home (current) use of opiate analgesic 05/15 Lumbar post-laminectomy numuulyt-pao-bbyeyikhoxm d 06/20/2018 Fibromyalgia 06/20/2018 Chronic bilateral low [...] on file Legal Sex Female 1:36 PM PRODUCTION WOOD CRAFTSMAN Gender Identity Not on file Sexual Orientation [...] HEPATITIS C ANTIBODY Routine 08/27/2021 10:49 AM PRODUCTION WOOD CRAFTSMAN EGFR Routine 08/24/2021 3:04 PM PRODUCTION WOOD CRAFTSMAN Preoperative testing COLONOSCOPY 08/18/2021 3:16 PM PRODUCTION WOOD CRAFTSMAN from Last 3 Months or Most Recently [...] hemoglobin A1c (12/11/2024 2:35 PM CDT) Pathologist [facility] Hemoglobin A1C, POC 5.9(A) 4.0 - 5.6 % Blood 12/11/2024 2:35 PM CDT Zenon Ruvalcaba DO POINT OF CARE TEST ORDERABL ES Final Result * Diabetic Eye Exam (05/22/2024) 05/22/2024 Historical Provider HEALTH MAINTENANCE Final Result * Hepatitis C antibody (08/27/2021 10:49 AM PRODUCTION WOOD CRAFTSMAN) Pathologist [facility] Hep C Ab Nonreactive Nonreactive [facility] Comment:Antibodies to HCV no t detected. Does NOT exclude the possibility of recent exposure to HCV. Blood 08/27/2021 10:4 9 AM PRODUCTION WOOD CRAFTSMAN 08/27/2021 11:07 AM PRODUCTION WOOD CRAFTSMAN Notinfile Unknown LAB MICROBIOLOGY - GENERAL ORD ERABLES Edited Result - Final [facility] Department [place] [address] * (ABNORMAL) eGFR (08/24/2021 3:04 PM PRODUCTION WOOD CRAFTSMAN) Pathologist [facility] eGFR 50(L) 90 - 130 mL/min/1. 73 m2 [facility] Comment: Interpretive Data Reference Interval Normal >/= [...] last reviewed 2021. Blood 08/24/2021 3:04 PM PRODUCTION WOOD CRAFTSMAN 08/24/2021 4:18 PM PRODUCTION WOOD CRAFTSMAN us Jenae Ruiz MD LAB BLOOD ORDERABLE S Final Result [facility] Department [place] [address] * COLONOSCOPY (08/18/2021 3:16 PM PRODUCTION WOOD CRAFTSMAN) Anatomical Region Laterality Modality Other Narrative Procedure Note Aydin Lo MD - 08/18/2021 3:16 PM CST ENDOSCOPY LAB Patient Name: Antonia Mckenna Procedure Date: 08/18/2021 3:16 PM Date of : 1950 Admit Type: Outpatient Age: 70 Gender: Female Attending MD: Aydin Lo M.D. Room: [facility] ENDOSCOPY ROOM 02 Note Status: Addendum [...] The scope was passed under direct vision.The [id number] was introduced through the anusand advanced to [...] bowel preparation was evaluated using the BBPS ([place] Bowel Preparation Scale) with scores of: Right [...] exercise regularly, maintain healthy weight. See [facility] website for moreprevention tips. - Contact Information: During normal business hours (8AM-4PM) - Pleasecall the Nurse Coordinator: [phone]. acidizer physician after hours, weekends andholidays: [phone] and asked for the [place]-Rectalphysician buttoner. - A polyp or polyps were removed [...] Relevant to Health Maintenance Insurance MEDICARE IDPA [facility] CHOICE PLUS [facility] MEDICARE ADVANTAGE MEDICARE IDPA IDPA [facility] MEDICARE ADVANTAGE [facility] MEDICARE ADVANTAGE IDPA Advance Directives For more information, please contact: [phone] * Full Code (Latest Code Status on File) Date Activated Date Inactivated Comments 08/18/2021 2:02 PM 08/18/2021 9:26 PM Care Teams Gravity Prospecting Operator Relationship Specialty Start Date End Date Oumar Sarkar DO [address] [place] [address] PCP - General Family Practice 10/04/17 Osmin Guo MD [address] [place] [address] Consulting Physician Gynecologic Oncology 08/20/21 Oumar Kaur MD 2 [facility] [address] [address] Anesthesiologist Pain Management 07/22/22
[2025-02-18] MEDS: LACTATED RINGERS 1,000 ML 30 ML IV CONT ×2 (06:30→11:15)
--- NOTE | 2025-02-18 06:56 | WPDANESEPPF ---
Anes - Initial Pre Proc Eval Procedure: Operation Date: 02/18/25 08:30 Proposed Procedures p Right L2-3, L4-5, L5-S1 Carlos-Laminectomy - Davy Houser MD Date/Time: 02/18/25 06:56 Surgeon: Davy Houser MD Pre Op Diagnosis: lumbar stenosis and spondylosis Patient Data Age: 74 Gender: F Height: 1.65 m Weight: 131 kg Last Vital Signs Temp 36.7 C 02/18/25 06:42 Pulse 65 02/18/25 06:42 Resp 18 02/18/25 06:42 BP 141/69 H 02/18/25 06:42 Pulse Ox 95 02/18/25 06:42 O2 Del Method Room Air 02/18/25 06:42 Allergies Allergy/AdvReac Type Severity Reaction Status Date / Time propoxyphene (From Allergy Intermediate Nausea and Verified 02/18/25 06:19 Darvocet-N) Vomiting adhesive Allergy Rash Verified 02/18/25 06:19 codeine Allergy Nausea and Verified 02/18/25 06:19 Vomiting Penicillins Allergy Rash Verified 02/18/25 06:19 Sulfa (Sulfonamide Allergy Unknown Verified 02/18/25 06:19 Antibiotics) Home Medications ?Medication ?Instructions ?Recorded ?Confirmed ?Type allopurinol 300 mg tablet 300 mg PO DAILY 10/22/24 02/18/25 History ascorbic acid (vitamin C) 500 mg 500 mg PO DAILY 10/22/24 02/18/25 History capsule cholecalciferol (vitamin D3) 325 325 mcg PO WEEKLY 10/22/24 02/18/25 History mcg (13,000 unit) capsule cyanocobalamin (vitamin B-12) 1,000 mcg PO DAILY 10/22/24 02/18/25 History 1,000 mcg capsule felodipine 5 mg tablet,extended 5 mg PO DAILY 10/22/24 02/18/25 History release 24 hr furosemide 20 mg tablet 20 mg PO QAM 10/22/24 02/18/25 History furosemide 40 mg tablet 40 mg PO QAM 10/22/24 02/18/25 History garlic 150 mg tablet 150 mg PO DAILY 10/22/24 02/18/25 History isosorbide mononitrate 30 mg 30 mg PO DAILY 10/22/24 02/18/25 History tablet,extended release 24 hr isosorbide mononitrate 60 mg 60 mg PO DAILY 10/22/24 02/18/25 History tablet,extended release 24 hr lisinopril 20 mg tablet 20 mg PO DAILY 10/22/24 02/18/25 History metoprolol succinate 100 mg 200 mg PO DAILY 10/22/24 02/18/25 History tablet,extended release 24 hr multivitamin 1 tablet PO DAILY 10/22/24 02/18/25 History omeprazole 20 mg capsule,delayed 20 mg PO DAILY 10/22/24 02/18/25 History release oxybutynin chloride 5 mg tablet 5 mg PO BID 10/22/24 02/18/25 History pregabalin 50 mg capsule 100 mg PO TID 10/22/24 02/18/25 History rosuvastatin 10 mg tablet 10 mg PO DAILY 10/22/24 02/18/25 History semaglutide 2 mg/dose (8 mg/3 mL) 2 mg subcut WEEKLY 02/12/25 02/18/25 History subcutaneous pen injector (Ozempic) Laboratory Tests 02/18/25 06:34 POC Capillary Glucose 145 H mg/dl (65-105) Patient hx anesthesia problems: none Family hx anesthesia problems: none Results Review: All pre-operative results and documents have been reviewed as part of the pre-operative evaluation. [facility] Past Medical History Medical History (Updated 02/18/25 @ 06:57 by Herb Gutierrez MD) Mitral valve regurgitation Former smoker CAD (coronary artery disease) PAD (peripheral artery disease) MAJO (obstructive sleep apnea) Morbid obesity Heart disease Diabetes Anxiety Surgical History Surgical History History of back surgery Family History Family History Father Diabetes mellitus Hypertension Cerebrovascular accident Heart disease History of cancer Social History Social History Smoking status: Unknown if ever smoked Alcohol intake: never Substance use: never Substance use type: does not use Anes - Eval Final PreProcedure Day of Procedure 02/18/25 06:56 Patient weight: morbidly obese Heart: regular rate and rhythm Lungs: clear to auscultation Airway: Mallampati scale class II Last oral intake: >/= 8 hours ASA classification: IV Emergent: no Anesthetic plan: proceed Anesthesia type and monitoring: general ETT and standard monitoring Results Review: All pre-operative results and documents have been reviewed as part of the pre-operative evaluation. Informed Consent: The patient's anesthetic plan and its attendant risks including , AR, CVA, respiratory failure, poor healing and benefits were discussed with the patient/family/POA. Questions were solicited and answers provided to the satisfaction of the patient/family/POA.
--- NOTE | 2025-02-18 08:37 | P.HP_ITS ---
H&P: HPI History of Present Illness Date/Time: 02/18/25 08:37 Chief Complaint: Back and leg pain Narrative: Charleen is a 74-year-old female referred from Dr. Salmeron office with complaints of pain in her back and lower extremities and numbness in her feet. She has been treated with injections. She was finally recommended a dorsal column stimulator trial but she is not interested in that type of treatment. She is pain that radiates from her back into her bilateral lower extremities perhaps somewhat worse on the right. This occurs when she stands and walks but does not always completely disappear if she lays down. She does not report specific muscle group weakness dermatomal numbness. She has not having bowel or bladder difficulty. Her pain has been going on for about a year. It has been progressive. It is severe and limiting on a daily basis. She has an MRI of the lumbar spine available for review today. Review of Systems Review of Systems: All systems reviewed & are unremarkable except as noted in HPI and below Denies chills, Denies fever, Denies weight gain and Denies weight loss Eyes Denies change in vision and Denies diplopia ENT Denies disequilibrium Card Denies chest pain and Denies dyspnea Resp Denies cough and Denies dyspnea GI Denies abdominal pain, Denies change in bowel habits, Denies fecal incontinence and Denies vomiting Denies hematuria, Denies oliguria, Denies difficulty urinating, Denies dysuria, Denies urinary frequency, Denies urinary hesitancy, Denies urinary incontinence and Denies urinary urgency Musc Reports as per HPI Skin/ Breast Reports system reviewed and no additional complaints, except as documented Neuro Reports as per HPIPsych Reports no additional complaints, Denies depression and Denies hopelessness Endo Reports no additional complaints and Denies polyuria Cliff/ Lymph Reports no additional complaints Aller/ Immun Reports no additional complaints ial cyst. [facility] Past Medical History Medical History (Updated 02/18/25 @ 06:57 by Herb Gutierrez MD) Mitral valve regurgitation Former smoker CAD (coronary artery disease) PAD (peripheral artery disease) MAJO (obstructive sleep apnea) Morbid obesity Heart disease Diabetes Anxiety Surgical History Surgical History History of back surgery Family History Family History Father Diabetes mellitus Hypertension Cerebrovascular accident Heart disease History of cancer Social History Social History Smoking status: Unknown if ever smoked Alcohol intake: never Substance use: never Substance use type: does not use Meds Home Medications and Allergies Home Medications ?Medication ?Instructions ?Recorded ?Confirmed ?Type allopurinol 300 mg tablet 300 mg PO DAILY 10/22/24 02/18/25 History ascorbic acid (vitamin C) 500 mg 500 mg PO DAILY 10/22/24 02/18/25 History capsule cholecalciferol (vitamin D3) 325 325 mcg PO WEEKLY 10/22/24 02/18/25 History mcg (13,000 unit) capsule cyanocobalamin (vitamin B-12) 1,000 mcg PO DAILY 10/22/24 02/18/25 History 1,000 mcg capsule felodipine 5 mg tablet,extended 5 mg PO DAILY 10/22/24 02/18/25 History release 24 hr furosemide 20 mg tablet 20 mg PO QAM 10/22/24 02/18/25 History furosemide 40 mg tablet 40 mg PO QAM 10/22/24 02/18/25 History garlic 150 mg tablet 150 mg PO DAILY 10/22/24 02/18/25 History isosorbide mononitrate 30 mg 30 mg PO DAILY 10/22/24 02/18/25 History tablet,extended release 24 hr isosorbide mononitrate 60 mg 60 mg PO DAILY 10/22/24 02/18/25 History tablet,extended release 24 hr lisinopril 20 mg tablet 20 mg PO DAILY 10/22/24 02/18/25 History metoprolol succinate 100 mg 200 mg PO DAILY 10/22/24 02/18/25 History tablet,extended release 24 hr multivitamin 1 tablet PO DAILY 10/22/24 02/18/25 History omeprazole 20 mg capsule,delayed 20 mg PO DAILY 10/22/24 02/18/25 History release oxybutynin chloride 5 mg tablet 5 mg PO BID 10/22/24 02/18/25 History pregabalin 50 mg capsule 100 mg PO TID 10/22/24 02/18/25 History rosuvastatin 10 mg tablet 10 mg PO DAILY 10/22/24 02/18/25 History semaglutide 2 mg/dose (8 mg/3 mL) 2 mg subcut WEEKLY 02/12/25 02/18/25 History subcutaneous pen injector (Ozempic) Allergies Allergy/AdvReac Type Severity Reaction Status Date / Time propoxyphene (From Allergy Intermediate Nausea and Verified 02/18/25 06:19 Darvocet-N) Vomiting adhesive Allergy Rash Verified 02/18/25 06:19 codeine Allergy Nausea and Verified 02/18/25 06:19 Vomiting Penicillins Allergy Rash Verified 02/18/25 06:19 Sulfa (Sulfonamide Allergy Unknown Verified 02/18/25 06:19 Antibiotics) Vital Signs Vital Signs - 24 hr 02/18/25 06:42 Temperature 98.1 F Pulse Rate 65 Respiratory Rate 18 Blood Pressure 141/69 H Pulse Oximetry 95 Oxygen Delivery Room Air Exam Narrative: Exam Exam Const Other: General: cooperative, no acute distress, well developed, alert and awake Orientation/Consciousness: oriented to person, oriented to place and oriented to time Constitutional Limitations: no limitations Other: The patient is a normally developed, normal appearing female sitting on the examination table in no acute distress. See is awake, alert, and oriented x3 with good fund of knowledge, recall of events, and fluent speech. HENMT Head: normocephalic and atraumatic Ears: external ears normal Face/Nose/Sinus: Normal external nose present Eyes Eyelids: eyelids normal Pupils: Yes Pupils normal by confrontation EOM: EOMs intact bilaterally Neck General: Yes no meningeal signs, Yes supple and Yes no JVD Resp Effort/Inspection: normal respiratory effort and able to speak in complete sentences Cardio Rate: Yes regular rate GI Inspection: No abdominal distension Musc Other: Examination of the back reveals no tenderness. Range of motion of the back is somewhat limited in forward flexion, extension, and lateral rotation to both sides. Straight leg raise is negative bilaterally. Abad?s test is negative bilaterally. Skin General: normal color Neuro General: Yes oriented to person, Yes oriented to place, Yes oriented to time, Yes normal cognition and Yes no meningeal signs Cranial Nerves: Yes CN's II-XII intact bilaterally Other: Motor: Strength is normal, 5/5, throughout all muscle groups of the bilateral lower extremities to direct confrontation. Sensory: Sensation is intact to light touch throughout the lower extremities bilaterally. Reflexes: Deep tendon reflexes are difficult to elicit at the knees or ankles bilaterally. There is no clonus. Gait: Gait, station, and transfers are independent and steady for short periods of time and over short distances. Transfers are mildly antalgic. She leans slightly forward as she walks. Psych Appearance: grossly normal Mental status: Yes mental status grossly normal Mood: congruent mood Affect: Yes normal affect Speech/Movement: Normal speech and movement present Attitude: Yes cooperative Thought Content: Normal thought content present Review of studies: MRI of the lumbar spine was personally reviewed by me. This demonstrates background spondylosis and disc level degeneration with a disc most degenerative at L2-3. There is central canal stenosis which is severe at L2-3. It is also present on the left at L3-4 where there is a disc protrusion or herniation contributing to the lateral recess stenosis on the left. At L4-5 there is lateral recess stenosis [id number]. At L5-S1 there is lateral recess stenosis which is severe on the right where there maybe a small synov Assessment and Plan Assessment and plan (1) Lumbar spondylosis: Code(s): M47.816 - Spondylosis without myelopathy or radiculopathy, lumbar region Status: Acute (2) Lumbar stenosis with neurogenic claudication: Code(s): M48.062 - Spinal stenosis, lumbar region with neurogenic claudication Status: Acute (3) Stenosis of lateral recess of lumbar spine: Code(s): M48.061 - Spinal stenosis, lumbar region without neurogenic claudication Status: Acute Plan Charleen is a 74-year-old female with back and leg pain likely related to the patho logy at L2-3 S1. I have recommended to her a right L2 through S1 hemilaminectomy for central canal and lateral recess stenosis and I described to her that operation, its risks, potential benefits, the operative and postoperative course in detail and answered all her questions personally. We discussed risks including but not limited to permanent neurologic deficit secondary to nerve root injury, need for reoperation secondary to infection, bleeding, CSF leak, adjacent level disease, recurrent or residual pathology or instability, failure of the procedure to relieve her pain or symptoms, persi stent pain, medical complications related to anesthesia or surgery, etc.. She indicates understanding and elects to proceed with the operation.
--- NOTE | 2025-02-18 08:39 | WPDHPUPDATE1 ---
History and Physical Update Update Date/Time: 02/18/25 08:39 History and Physical has been reviewed, including an updated exam of the patient. There are NO changes in the patient's condition. Risks, benefits, and alternatives have been discussed and questions answered. Patient agrees to proceed with procedure.
[2025-02-18] MEDS: ceFAZolin 3 GM/D5W 100 ML 100 ML IVPB (08:44)
[2025-02-18] MEDS: LIDO 1%/EPINEPHRINE 1:100,000 20 ML VIAL 10 ML INFILTRATE (09:39)
--- NOTE | 2025-02-18 11:07 | W.PM.PROC2 ---
Procedure Note - Detailed Date of Procedure 02/18/25 Pre-op Diagnosis lumbar stenosis and spondylosis Post-op Diagnosis Same Procedure Performed Right L2-3, L4-5 and L5-S1 hemilaminectomy Surgeon Davy Houser MD Anesthesia General Description of Procedure Patient was brought to the operating room in the supine position, was sedated, intubated placed under general anesthesia in routine fashion. She was then turned into the prone position on a Julian frame. The of operation her back was examined, marked for incision, prepped and draped in routine sterile fashion. Incision was marked from the L2 through S1 spinous processes in the midline. This area was injected with 0.5% lidocaine with [id number] epinephrine. Intravenous antibiotics given prior to incision. Incision was made with a 10 blade scalpel down to the lumbodorsal fascia. A subperiosteal dissection of the muscle soft tissue away from spinous process lamina at L2 through S1 on the right was performed with a subperiosteal elevator and Bovie cautery. A verifying x-rays obtained to verify the level of operation. Midas-Jayme drill was used to perform a hemilaminectomy and medial facetectomy at L2-3, L4-5 and L5-S1. Under microscopy the yellow ligament was lifted removed piecemeal using Kerrison punches. This exposed the dura in the midline. A curved curette was used to define a plane with with the dura at each of these levels. This was difficult given the adherence of the dura to the overgrown bone and ligament. However, it was achieved. Kerrison punches and curved curettes were used to remove overgrown bone and ligament in the lateral recess at all these levels. The spinous process was undercut using a Midas Jayme drill. On the contralateral side a curved curette was used to lift overgrown ligament and it was removed along with overgrown bone using Kerrison punches. These maneuvers were performed until a dental instrument could be placed in the lateral epidural space to confirm lack of compression. The wound was then copiously irrigated with bacitracin irrigation all bleeding stopped with bipolar Bovie cautery and Gelfoam thrombin powder. The wound was then closed in layered fashion with 2-0 Vicryl interrupted sutures in the lumbodorsal fascia and Dionne's layer. 3-0 Vicryl buried interrupted sutures were placed in the dermis and the skin was closed with a running 4-0 Monocryl subcuticular stitch and dressed with Dermabond. The patient was allowed to wake up in the operating room was taken to the recovery room in stable condition. There were no immediate complications of this operation. All counts reported correct at the end of the case. Blood loss was 100 cc. The patient was neurologically at her baseline postoperatively. CPT codes: 95638, 10445 x 3 Complications None Condition Stable Disposition PACU [facility] Billing Surgery - Charge Forward: Surgery Billing
[2025-02-18] MEDS: ONDANSETRON INJ 4 MG/2 ML VIAL IV PUSH (11:49)
--- NOTE | 2025-02-18 12:55 | ADMGEN ---
This patient, Charleen Mckenna, was admitted to Medical Room 246-. Patient/family oriented to hospital policies and general routines including ID bracelet, bed and alarms, visiting hours, pain management, procedures, bathroom and other care routines, personal items, smoking policy, room service/diet, and visiting hours. Information on how to activate the Rapid Response Team has been discussed. Patient/Family are encouraged to report perceived risks to care and to ask questions if they do not understand what they are told or what they should do.
[2025-02-18] MEDS: KCL 20 MEQ/D5/0.45% SOD CHL 1,000 ML 100 ML IV CONT (13:22)
[2025-02-18] MEDS: HYDROcodone/acetaminophen (*CRX) 5-325 MG TABLET 1 TAB PO (13:43)
[2025-02-18] MEDS: ACETAMINOPHEN 325 MG TABLET 650 MG PO (17:23)
[2025-02-18] MEDS: PREGABALIN (*CRX) 50 MG CAPSULE 100 MG PO (17:23)
[2025-02-18] MEDS: HYDROcodone/acetaminophen (*CRX) 10-325 MG TABLET 1 TAB PO (18:40)
[2025-02-19] VITALS (8 sets, daily range): BP systolic 100–128; BP diastolic 50–59; PULSE 63–75; RESP 16–17; TEMP 35.4–36.8; O2SAT 93–96
--- NOTE | ~2025-02-19 | XR_ITS ---
INTRAOPERATIVE FLUOROSCOPY: CLINICAL HISTORY: 74 years old Female; RIGHT LUMBAR KIMMIE-LAMINECTOMY PROCEDURE COMMENTS: Limited intraoperative fluoroscopy of the lumbar spine was performed. CUMULATIVE DOSE: 7.35 mGy FLUOROSCOPY TIME: 5 seconds FINDINGS/IMPRESSION: Please refer to operative note for further details. Reviewed, dictated and finalized at location A.
[2025-02-19] MEDS: ACETAMINOPHEN 325 MG TABLET 650 MG PO (01:49)
[2025-02-19] MEDS: HYDROcodone/acetaminophen (*CRX) 10-325 MG TABLET 1 TAB PO (05:21)
[2025-02-19] MEDS: PANTOPRAZOLE 40 MG TABLET PO (09:18)
[2025-02-19] MEDS: CYANOCOBALAMIN 1,000 MCG TABLET 1000 MCG PO (09:18)
[2025-02-19] MEDS: CHOLECALCIFEROL (VITAMIN D3) 125 MCG (5,000 UNITS) TABLET PO (09:18)
[2025-02-19] MEDS: ROSUVASTATIN 10 MG TABLET PO (09:18)
[2025-02-19] MEDS: DOCUSATE SODIUM 100 MG CAPSULE PO ×2 (09:18→19:48)
[2025-02-19] MEDS: FELODIPINE 5 MG TAB CR PO (09:18)
[2025-02-19] MEDS: METOPROLOL SUCCINATE EXT REL 100 MG TABCR 200 MG PO (09:18)
[2025-02-19] MEDS: ASCORBIC ACID 500 MG TABLET PO (09:18)
[2025-02-19] MEDS: MULTIVITAMINS THERAPEUTIC TAB (*BKC) 1 TABLET PO (09:18)
[2025-02-19] MEDS: FUROSEMIDE 40 MG TABLET PO (09:18)
[2025-02-19] MEDS: ISOSORBIDE MONONITRATE 30 MG TAB.ER.24H PO (09:18)
[2025-02-19] MEDS: ISOSORBIDE MONONITRATE 60 MG TAB.ER.24H PO (09:18)
[2025-02-19] MEDS: FUROSEMIDE 20 MG TABLET PO (09:19)
[2025-02-19] MEDS: PREGABALIN (*CRX) 50 MG CAPSULE 100 MG PO ×3 (09:19→17:12)
[2025-02-19] MEDS: HYDROcodone/acetaminophen (*CRX) 5-325 MG TABLET 1 TAB PO (09:24)
--- NOTE | 2025-02-19 10:07 | PCOTNOTE ---
Patient refused treatment this session due to 8/10 pain and fatigue. Per patient she received pain medication ~30 minutes ago. Patient stated she would try after lunch time frame.
--- NOTE | 2025-02-19 11:16 | WPDNEUROSGPN ---
Progress Note: A&P Assessment and Plan (1) Status post lumbar laminectomy: Code(s): Z98.890 - Other specified postprocedural states Status: Acute Plan -Will adjust pain medications today -Out of bed to chair, ambulate in halls -Anticipate discharge home tomorrow Subjective Date/time seen: 02/19/25 11:16 Interval history: Having a lot of back and right hip-region pain. Ambulated a short distance. Voiding independently. Does not feel ready to go home today. She indicates she cannot take hydrocodone due to significant GI discomfort but believes she has done well with tramadol in the past Review of Systems Review of Systems: All systems reviewed & are unremarkable except as noted in HPI and below Exam Narrative: AOx4 Incision c/d/i Moving legs with good strength although pain limited in right thigh Sensation intact to light touch Objective Data Vital Signs Vital Signs: Vital Signs - 24 hr 02/18/25 11:30 02/18/25 11:45 02/18/25 12:00 Temperature Pulse Rate 58 L 80 72 Respiratory Rate 14 14 16 Blood Pressure 110/62 126/66 123/70 Pulse Oximetry 97 100 99 Oxygen Delivery Simple Face Mask Simple Face Mask Nasal Cannula Oxygen Flow Rate 6 6 2 02/18/25 12:15 02/18/25 12:30 02/18/25 12:42 Temperature 97.0 F L Pulse Rate 70 70 70 Respiratory Rate 16 14 16 Blood Pressure 120/69 122/73 122/63 Pulse Oximetry 100 99 100 Oxygen Delivery Nasal Cannula Nasal Cannula Nasal Cannula Oxygen Flow Rate 2 2 2 02/18/25 12:55 02/18/25 13:00 02/18/25 13:10 Temperature 96.1 F L 96.4 F L Pulse Rate 63 69 Respiratory Rate 17 17 Blood Pressure 120/62 110/66 Pulse Oximetry 99 99 98 Oxygen Delivery Nasal Cannula Oxygen Flow Rate 2 02/18/25 13:40 02/18/25 14:40 02/18/25 15:00 Temperature 96.4 F L 96.4 F L Pulse Rate 70 72 Respiratory Rate 18 18 Blood Pressure 108/48 L 108/58 L Pulse Oximetry 100 100 98 Oxygen Delivery Room Air Oxygen Flow Rate 02/18/25 15:31 02/18/25 19:46 02/18/25 20:00 Temperature 97.1 F L Pulse Rate 66 67 Respiratory Rate 16 16 Blood Pressure 127/61 Pulse Oximetry 95 95 Oxygen Delivery Room Air Room Air Oxygen Flow Rate 02/18/25 23:06 02/19/25 02:00 02/19/25 05:50 Temperature 97.0 F L 97.4 F L 95.8 F L Pulse Rate 68 67 63 Respiratory Rate 16 16 16 Blood Pressure 119/51 L 123/59 L 128/56 L Pulse Oximetry 94 95 93 Oxygen Delivery Oxygen Flow Rate 02/19/25 08:05 02/19/25 09:18 02/19/25 09:25 Temperature 97.3 F L Pulse Rate 64 72 Respiratory Rate 17 Blood Pressure 122/58 L Pulse Oximetry 94 Oxygen Delivery Room Air Oxygen Flow Rate Intake/Output Intake/Output: Intake & Output 02/16/25 02/17/25 02/18/25 02/19/25 23:59 23:59 23:59 23:59 Intake Total 990 1120 Balance 990 1120 Meds/Results Medications: Active Medications Generic Name Dose Route Start Last Admin Trade Name Freq PRN Reason Stop Dose Admin Acetaminophen 1,000 mg 02/19/25 11:15 Acetaminophen 500 Mg Tablet PO Q6H BRENNA Al Hydrox/Mg Hydrox/Simethicone 20 ml 02/18/25 12:46 Mag Hydrox/Al Hydrox/Simeth 30 Ml Udc PO Q4H PRN Indigestion/Heartburn Allopurinol 300 mg 02/19/25 09:00 02/19/25 09:18 Allopurinol 300 Mg Tablet PO 300 mg DAILY BRENNA Administration Ascorbic Acid 500 mg 02/19/25 09:00 02/19/25 09:18 Ascorbic Acid 500 Mg Tablet PO 500 mg DAILY BRENNA Administration Bisacodyl 10 mg 02/18/25 12:46 Bisacodyl 10 Mg Suppository RECTAL DAILY PRN Constipation Cyanocobalamin 1,000 mcg 02/19/25 09:00 02/19/25 09:18 Cyanocobalamin 1,000 Mcg Tablet PO 1,000 mcg DAILY BRENNA Administration Cyclobenzaprine HCl 10 mg 02/18/25 12:46 Cyclobenzaprine Hcl 10 Mg Tablet PO TID PRN Muscle Spasms Docusate Sodium 100 mg 02/18/25 21:00 02/19/25 09:18 Docusate Sodium 100 Mg Capsule PO 100 mg Q12HR BRENNA Administration Felodipine 5 mg 02/19/25 09:00 02/19/25 09:18 Felodipine 5 Mg Tab Cr PO 5 mg DAILY BRENNA Administration Furosemide 20 mg 02/19/25 09:00 02/19/25 09:19 Furosemide 20 Mg Tablet PO 20 mg QAM BRENNA Administration Furosemide 40 mg 02/19/25 09:00 02/19/25 09:18 Furosemide 40 Mg Tablet PO 40 mg QAM BRENNA Administration Isosorbide Mononitrate 30 mg 02/19/25 09:00 02/19/25 09:18 Isosorbide Mononitrate 30 Mg Tab.Er.24h PO 30 mg DAILY BERNNA Administration Isosorbide Mononitrate 60 mg 02/19/25 09:00 02/19/25 09:18 Isosorbide Mononitrate 60 Mg Tab.Er.24h PO 60 mg DAILY BRENNA Administration Lisinopril 20 mg 02/19/25 09:00 02/19/25 09:18 Lisinopril 20 Mg Tablet PO 20 mg DAILY BRENNA Administration Metoprolol Succinate 200 mg 02/19/25 09:00 02/19/25 09:18 Metoprolol Succinate Ext Rel 100 Mg Tabcr PO 200 mg DAILY [facility] Administration Morphine Sulfate 2 mg 02/18/25 12:46 Morphine Sulfate (*Crx) 2 Mg/Ml Inj IV PUSH Q2H PRN Breakthrough Pain Multivitamins Therapeutic 1 tablet 02/19/25 09:00 02/19/25 09:18 Multivitamins Therapeutic Tab (*Bkc) PO 1 tablet DAILY [facility] Administration Ondansetron HCl 4 mg 02/18/25 12:46 Ondansetron Inj 4 Mg/2 Ml Vial IV PUSH Q8H PRN Nausea And Vomiting Oxybutynin Chloride 5 mg 02/18/25 17:00 02/19/25 09:18 Oxybutynin Chloride 5 Mg Tablet PO 5 mg BID BRENNA Administration Pantoprazole Sodium 40 mg 02/19/25 09:00 02/19/25 09:18 Pantoprazole 40 Mg Tablet PO 40 mg QAM BRENNA Administration Pregabalin 100 mg 02/18/25 13:00 02/19/25 09:19 Pregabalin (*Crx) 50 Mg Capsule PO 100 mg TID BRENNA Administration Rosuvastatin Calcium 10 mg 02/19/25 09:00 02/19/25 09:18 Rosuvastatin 10 Mg Tablet PO 10 mg DAILY BRENNA Administration Senna/Docusate Sodium 1 tab 02/18/25 12:46 Senna/Docusate Sodium Tablet PO HS PRN Constipation Vitamin D 125 mcg 02/19/25 09:00 02/19/25 09:18 Cholecalciferol (Vitamin D3) 125 Mcg (5,000 Units) Tablet PO 125 mcg DAILY BRENNA Administration Labs Labs: Laboratory Results - last 24 hr 02/18/25 02/18/25 02/19/25 11:19 20:43 01:54 POC Capillary Glucose 153 H 191 H 117 H
[2025-02-19] MEDS: ACETAMINOPHEN 500 MG TABLET 1000 MG PO ×2 (17:12→23:36)
[2025-02-19] MEDS: traMADol HCL (*CRX) 50 MG TABLET PO (19:48)
[2025-02-20 06:29] VITALS: BP 96/49; PULSE 58; RESP 18; TEMP 36.5; O2SAT 97
[2025-02-20] MEDS: ACETAMINOPHEN 500 MG TABLET 1000 MG PO ×3 (06:29→17:11)
[2025-02-20 09:20] VITALS: BP 112/64; PULSE 61; O2SAT 100
[2025-02-20] MEDS: MULTIVITAMINS THERAPEUTIC TAB (*BKC) 1 TABLET PO (09:21)
[2025-02-20] MEDS: ASCORBIC ACID 500 MG TABLET PO (09:21)
[2025-02-20] MEDS: CHOLECALCIFEROL (VITAMIN D3) 125 MCG (5,000 UNITS) TABLET PO (09:21)
[2025-02-20] MEDS: FELODIPINE 5 MG TAB CR PO (09:22)
[2025-02-20] MEDS: CYANOCOBALAMIN 1,000 MCG TABLET 1000 MCG PO (09:22)
[2025-02-20] MEDS: ISOSORBIDE MONONITRATE 30 MG TAB.ER.24H PO (09:22)
[2025-02-20] MEDS: FUROSEMIDE 20 MG TABLET PO (09:22)
[2025-02-20] MEDS: DOCUSATE SODIUM 100 MG CAPSULE PO ×2 (09:22→20:16)
[2025-02-20] MEDS: FUROSEMIDE 40 MG TABLET PO (09:22)
[2025-02-20] MEDS: ISOSORBIDE MONONITRATE 60 MG TAB.ER.24H PO (09:22)
[2025-02-20 09:23] VITALS: PULSE 61
[2025-02-20] MEDS: PANTOPRAZOLE 40 MG TABLET PO (09:23)
[2025-02-20] MEDS: PREGABALIN (*CRX) 50 MG CAPSULE 100 MG PO ×3 (09:23→17:11)
[2025-02-20] MEDS: METOPROLOL SUCCINATE EXT REL 100 MG TABCR 200 MG PO (09:23)
[2025-02-20] MEDS: ROSUVASTATIN 10 MG TABLET PO (09:23)
[2025-02-20] MEDS: traMADol HCL (*CRX) 50 MG TABLET PO ×2 (10:56→17:10)
--- NOTE | 2025-02-20 12:50 | WPDNEUROSGPN ---
Progress Note: A&P Assessment and Plan (1) Status post lumbar laminectomy: Code(s): Z98.890 - Other specified postprocedural states Status: Acute Plan -We discussed discharge home later today vs tomorrow. She is uncomfortable with going home today and requested to go home in the morning. We discussed expectations of pain control after surgery as well as her need to request pain medication more frequently if she is having uncontrolled pain -She can shower today and get incision wet. Incision should not be submerged under water -Start DVT chemoprophylaxis today Subjective Date/time seen: 02/20/25 12:50 Interval history: Continues to complain of pain that is too significant for her to go home. She is receiving scheduled Tylenol. She is unsure whether the tramadol is helping, but she has gone for 12+ hours without requesting it. Her session with therapy improved today. Review of Systems Review of Systems: All systems reviewed & are unremarkable except as noted in HPI and below Exam Narrative: AOx4 Moving lower extremities with symmetric strength, right hip flexor mobility is better today Sensation intact to light touch Objective Data Vital Signs Vital Signs: Vital Signs - 24 hr 02/19/25 14:20 02/19/25 19:55 02/19/25 20:00 Temperature 97.8 F 98.3 F Pulse Rate 75 71 71 Respiratory Rate 16 17 17 Blood Pressure 109/57 L 100/50 L Pulse Oximetry 96 96 96 Oxygen Delivery Room Air 02/19/25 23:43 02/20/25 06:29 02/20/25 08:00 Temperature 97.5 F L 97.7 F Pulse Rate 58 L Respiratory Rate 16 18 Blood Pressure 107/51 L 96/49 L Pulse Oximetry 97 Oxygen Delivery Room Air 02/20/25 09:20 02/20/25 09:23 Temperature Pulse Rate 61 61 Respiratory Rate Blood Pressure 112/64 Pulse Oximetry 100 Oxygen Delivery Intake/Output Intake/Output: Intake & Output 02/17/25 02/18/25 02/19/25 02/20/25 23:59 23:59 23:59 23:59 Intake Total 990 1660 740 Balance 990 1660 740 Meds/Results Medications: Active Medications Generic Name Dose Route Start Last Admin Trade Name Freq PRN Reason Stop Dose Admin Acetaminophen 1,000 mg 02/19/25 11:15 02/20/25 12:18 Acetaminophen 500 Mg Tablet PO 1,000 mg Q6HR BRENNA Administration Al Hydrox/Mg Hydrox/Simethicone 20 ml 02/18/25 12:46 Mag Hydrox/Al Hydrox/Simeth 30 Ml Udc PO Q4H PRN Indigestion/Heartburn Allopurinol 300 mg 02/19/25 09:00 02/20/25 09:21 Allopurinol 300 Mg Tablet PO 300 mg DAILY BRENNA Administration Ascorbic Acid 500 mg 02/19/25 09:00 02/20/25 09:21 Ascorbic Acid 500 Mg Tablet PO 500 mg DAILY BRENNA Administration Benzocaine 1 lozenge 02/19/25 17:59 Benzocaine/Menthol (*Bkc) 18 Ea Lozenge PO PRN PRN Sore Throat Bisacodyl 10 mg 02/18/25 12:46 Bisacodyl 10 Mg Suppository RECTAL DAILY PRN Constipation Cyanocobalamin 1,000 mcg 02/19/25 09:00 02/20/25 09:22 Cyanocobalamin 1,000 Mcg Tablet PO 1,000 mcg DAILY BRENNA Administration Cyclobenzaprine HCl 10 mg 02/18/25 12:46 Cyclobenzaprine Hcl 10 Mg Tablet PO TID PRN Muscle Spasms Docusate Sodium 100 mg 02/18/25 21:00 02/20/25 09:22 Docusate Sodium 100 Mg Capsule PO 100 mg Q12HR BRENNA Administration Felodipine 5 mg 02/19/25 09:00 02/20/25 09:22 Felodipine 5 Mg Tab Cr PO 5 mg DAILY BRENNA Administration Furosemide 20 mg 02/19/25 09:00 02/20/25 09:22 Furosemide 20 Mg Tablet PO 20 mg QAM BRENNA Administration Furosemide 40 mg 02/19/25 09:00 02/20/25 09:22 Furosemide 40 Mg Tablet PO 40 mg QAM BRENNA Administration Isosorbide Mononitrate 30 mg 02/19/25 09:00 02/20/25 09:22 Isosorbide Mononitrate 30 Mg Tab.Er.24h PO 30 mg DAILY BRENNA Administration Isosorbide Mononitrate 60 mg 02/19/25 09:00 02/20/25 09:22 Isosorbide Mononitrate 60 Mg Tab.Er.24h PO 60 mg DAILY BRENNA Administration Lisinopril 20 mg 02/19/25 09:00 02/20/25 09:23 Lisinopril 20 Mg Tablet PO 20 mg DAILY BRENNA Administration Metoprolol Succinate 200 mg 02/19/25 09:00 02/20/25 09:23 Metoprolol Succinate Ext Rel 100 Mg Tabcr PO 200 mg DAILY BRENNA Administration Morphine Sulfate 2 mg 02/18/25 12:46 Morphine Sulfate (*Crx) 2 Mg/Ml Inj IV PUSH Q2H PRN Breakthrough Pain Multivitamins Therapeutic 1 tablet 02/19/25 09:00 02/20/25 09:21 Multivitamins Therapeutic Tab (*Bkc) PO 1 tablet DAILY BRENNA Administration Ondansetron HCl 4 mg 02/18/25 12:46 Ondansetron Inj 4 Mg/2 Ml Vial IV PUSH Q8H PRN Nausea And Vomiting Oxybutynin Chloride 5 mg 02/18/25 17:00 02/20/25 09:23 Oxybutynin Chloride 5 Mg Tablet PO 5 mg BID BRENNA Administration Pantoprazole Sodium 40 mg 02/19/25 09:00 02/20/25 09:23 Pantoprazole 40 Mg Tablet PO 40 mg QAM BRENNA Administration Pregabalin 100 mg 02/18/25 13:00 02/20/25 12:18 Pregabalin (*Crx) 50 Mg Capsule PO 100 mg TID BRENNA Administration Rosuvastatin Calcium 10 mg 02/19/25 09:00 02/20/25 09:23 Rosuvastatin 10 Mg Tablet PO 10 mg DAILY BRENNA Administration Senna/Docusate Sodium 1 tab 02/18/25 12:46 Senna/Docusate Sodium Tablet PO HS PRN Constipation Tramadol HCl 50 mg 02/19/25 11:15 02/20/25 10:56 Tramadol Hcl (*Crx) 50 Mg Tablet PO 50 mg Q4H PRN Administration Pain Rated 4-6 Tramadol HCl 100 mg 02/19/25 11:15 Tramadol Hcl (*Crx) 50 Mg Tablet PO Q4H PRN Pain Rated 7-10 Vitamin D 125 mcg 02/19/25 09:00 02/20/25 09:21 Cholecalciferol (Vitamin D3) 125 Mcg (5,000 Units) Tablet PO 125 mcg DAILY BRENNA Administration Labs Labs: Laboratory Results - last 24 hr 02/19/25 02/20/25 22:17 11:53 POC Capillary Glucose 138 H 124 H
[2025-02-20] MEDS: ENOXAPARIN 40 MG/0.4 ML SYRINGE SUB-Q (13:41)
[2025-02-20 15:14] VITALS: BP 110/51; PULSE 59; RESP 18; TEMP 36.4; O2SAT 99
[2025-02-20] MEDS: traMADol HCL (*CRX) 50 MG TABLET 100 MG PO (20:16)
[2025-02-20 22:00] VITALS: BP 111/60; PULSE 64; RESP 18; TEMP 36.4; O2SAT 94
[2025-02-21 06:00] VITALS: BP 132/60; PULSE 71; RESP 18; TEMP 36.4; O2SAT 93
[2025-02-21] MEDS: ACETAMINOPHEN 500 MG TABLET 1000 MG PO ×2 (06:03→12:02)
[2025-02-21] MEDS: traMADol HCL (*CRX) 50 MG TABLET PO (06:40)
[2025-02-21 09:19] LABS: Platelet Count Result 248 k/mm3 (150-375)
[2025-02-21] MEDS: ASCORBIC ACID 500 MG TABLET PO (09:30)
[2025-02-21] MEDS: FUROSEMIDE 40 MG TABLET PO (09:30)
[2025-02-21] MEDS: CHOLECALCIFEROL (VITAMIN D3) 125 MCG (5,000 UNITS) TABLET PO (09:30)
[2025-02-21] MEDS: MULTIVITAMINS THERAPEUTIC TAB (*BKC) 1 TABLET PO (09:30)
[2025-02-21] MEDS: ROSUVASTATIN 10 MG TABLET PO (09:30)
[2025-02-21] MEDS: DOCUSATE SODIUM 100 MG CAPSULE PO (09:30)
[2025-02-21] MEDS: CYANOCOBALAMIN 1,000 MCG TABLET 1000 MCG PO (09:30)
[2025-02-21] MEDS: FUROSEMIDE 20 MG TABLET PO (09:30)
[2025-02-21] MEDS: METOPROLOL SUCCINATE EXT REL 100 MG TABCR 200 MG PO (09:30)
[2025-02-21] MEDS: ISOSORBIDE MONONITRATE 60 MG TAB.ER.24H PO (09:40)
[2025-02-21] MEDS: PANTOPRAZOLE 40 MG TABLET PO (09:40)
[2025-02-21] MEDS: PREGABALIN (*CRX) 50 MG CAPSULE 100 MG PO (09:40)
[2025-02-21] MEDS: FELODIPINE 5 MG TAB CR PO (09:40)
[2025-02-21] MEDS: ISOSORBIDE MONONITRATE 30 MG TAB.ER.24H PO (09:40)
[2025-02-21] MEDS: ENOXAPARIN 40 MG/0.4 ML SYRINGE SUB-Q (09:41)
[2025-02-21 09:44] LABS: Estimated CRCL calculation 36 ml/min; Estimated Glomerular Filt Rate 29
[2025-02-21] MEDS: traMADol HCL (*CRX) 50 MG TABLET 100 MG PO (12:04)
[2025-02-21 14:38] VITALS: BP 102/66; PULSE 60; RESP 16; TEMP 36.4; O2SAT 95
--- NOTE | 2025-03-03 21:12 | PM.DS ---
DS: Admitting Diagnosis Discharge Date 02/21/25 Admitting Diagnosis L2-3, L3-4 and L5-S1 lateral recess stenosis DS: Discharge Diagnosis Discharge Diagnosis (1) Stenosis of lateral recess of lumbar spine: Code(s): M48.061 - Spinal stenosis, lumbar region without neurogenic claudication Status: Acute DS: Summary Hospital Course Hospital Course: the patient was taken to the operating room on 02/18/2025 where the right L2-3, L3-4 and L5-S1 hemilaminectomy was performed without complication. she went to the floor postoperatively. Physical and occupational therapy were involved in her care. She would pain issues related to surgery and some tentative this with ambulation. Adjustments were made to her medications and she continue with physical and occupational therapy. On postoperative day 3 she was eating, ambulating, emptying her bladder and her pain was under control with by mouth pain medicine. Her wounds remained clean, dry and intact. She was afebrile with stable vital signs. She was therefore allowed to be discharged home. Time Spent with Patient Time attestation: Total time spent providing and/or coordinating discharge services: Discharge Plan Discharge Attending physician on discharge: Davy Houser Consulting providers: Ermelinda Sepulveda; Herb Gutierrez; Erendira Salgado Discharging Clinician: Den Bagley Anticipated Discharge Date/Time: 02/21/25 13:29 Patient Disposition: Home with Home Health Service Activity: december shower Diet: as tolerated and regular Wound Care Instructions: follow printed instructions Discharge Instructions: Care Coordination: Patient to have [facility] for PT/OT eval and treat, and chcf. They can be reached at [phone], if you have any questions; they will contact you to schedule their first visit. RN Please fax discharge instructions to [phone]. Patient Instructions: Antibiotic Form Patient Language: Turkish Stand Alone Forms: General Discharge Information Follow-up/Referrals: Davy Houser MD [Physician] - (call office for appointment) Discharge Medications: New cyclobenzaprine 5 mg tablet 5 mg PO HS Qty: 30 0RF Continued omeprazole 20 mg capsule,delayed release(DR/EC) 20 mg PO DAILY isosorbide mononitrate 30 mg tablet extended release 24 hr 30 mg PO DAILY Patient Comments: =90mg daily isosorbide mononitrate 60 mg tablet extended release 24 hr 60 mg PO DAILY Patient Comments: =90mg Daily lisinopril 20 mg tablet 20 mg PO DAILY furosemide 20 mg tablet 20 mg PO QAM felodipine 5 mg tablet extended release 24 hr 5 mg PO DAILY rosuvastatin 10 mg tablet 10 mg PO DAILY cyanocobalamin (vitamin B-12) 1,000 mcg capsule 1,000 mcg PO DAILY multivitamin Tablet 1 tablet PO DAILY pregabalin 50 mg capsule 100 mg PO TID oxybutynin chloride 5 mg tablet 5 mg PO TID garlic 150 mg tablet 150 mg PO DAILY ascorbic acid (vitamin C) 500 mg capsule 500 mg PO DAILY Ozempic 2 mg/dose (8 mg/3 mL) pen injector 2 mg SUBCUT WEEKLY Patient Comments: TUESDAYS cholecalciferol (vitamin D3) [Vitamin D3] 125 mcg (5,000 unit) tablet 125 mcg PO DAILY Held allopurinol 300 mg tablet 300 mg PO DAILY Hold Instructions: Resume on 02/28/25. call office to see when it is safe to resume No Action acetaminophen 325 mg Tablet 650 mg PO Q4H PRN (Reason: Mild Pain (1-3) Or Fever) Qty: 10 0RF acetaminophen 325 mg Tablet 650 mg PO Q6HR Qty: 10 0RF sennosides-docusate sodium [Senokot-S] 8.6-50 mg Tablet 1 tab-cap PO BID Qty: 10 0RF insulin aspart U-100 [Novolog U-100 Insulin aspart] 100 unit/mL Solution 2 - 5 unit subcut TIDWM Qty: 10 0RF Protocol: Insulin Corrective Low-Dose Condition: glucose < 70 mg/dl Dose/Route: Follow Hypoglycemia Order Condition: glucose 70-200 mg/dl Dose/Route: No additional insulin Condition: glucose 201-250 mg/dl Dose/Route: 2 units sub-Q Condition: glucose 251-300 mg/dl Dose/Route: 3 units sub-Q Condition: glucose 301-350 mg/dl Dose/Route: 4 units sub-Q Condition: glucose 351-400 mg/dl Dose/Route: 5 units sub-Q Condition: glucose > 400 mg/dl Dose/Route: Call Protocol Text: *No Correction Dose at Bedtime* Rx Instructions: Until you resume ozempic then can stop polyethylene glycol 3350 [Miralax] 17 gram Powder In Packet 17 g PO QAM PRN (Reason: Constipation) Qty: 14 0RF metoprolol succinate [Toprol XL] 100 mg Tablet Extended Release 24 Hr 200 mg PO DAILY Qty: 10 0RF methocarbamol 750 mg Tablet 750 mg PO QID Qty: 10 0RF lactulose 10 gram/15 mL solution 20 g PO TID Qty: 237 0RF Rx Instructions: Until BM Date of admission: 02/19/25 12:08 Primary Care Provider: Mello,Oumar Prakash Admitting Provider: Davy Houser Attending physician on admission: Davy Houser Condition: Improved
== END 2025-02-21 15:50 | disposition home health service (06) ==
LOC: ANHSURGERY 19:14 → ANH2MED 19:14
PROVIDERS: Neurological Surgery; Admitting Provider Neurological Surgery; PCP Family Medicine; Visit Provider Neurological Surgery
PROC: (CPT 63005; principal; 2025-02-18 08:30)
DX: M47.816 Spondylosis without myelopathy or radiculopathy, lumbar region (principal); M48.062 Spinal stenosis, lumbar region with neurogenic claudication; M48.061 Spinal stenosis, lumbar region without neurogenic claudication; I25.10 Atherosclerotic heart disease of native coronary artery without angina pectoris; I73.9 Peripheral vascular disease, unspecified; E11.9 Type 2 diabetes mellitus without complications; I51.9 Heart disease, unspecified; Z87.891 Personal history of nicotine dependence; E66.01 Morbid (severe) obesity due to excess calories; Z68.42 Body mass index [BMI] 45.0-49.9, adult
CPT/HCPCS: 63047; 63048 ×3; 36415; 82565; 82948; 85049; 97116; 97161; 97165; 97530; 97535; 99199; A9270; G0378; J0690; J1100; J1200; J1650; J2003; J2004; J2371; J2405; J2704; J3010; J3480; J7120

== ENCOUNTER 2025-02-22 15:08 | Observation (INO) | payer MEDICARE, MEDICAID, SELFPAY ==
[2025-02-22] VITALS (9 sets, daily range): BP systolic 103–135; BP diastolic 54–71; PULSE 56–63; RESP 15–18; TEMP 36.4–36.9; O2SAT 93–97; BMI 52.6
--- NOTE | ~2025-02-22 | XR_ITS ---
EXAM: XR abdomen/kub 1V DATE: 02/24/2025 15:16 HISTORY: Constipation . COMPARISON: X-ray chest 02/22/2025. FINDINGS: Exam limited by body habitus Lumbar degenerative disc disease. Mild bilateral hip osteoarth ritis. Clear lung bases. No free air. Enlarged liver. Normal bowel gas pattern. IMPRESSION: No radiographic evidence of obstruction or ileus. Hepatomegaly. Reviewed, dictated and finalized at location K.
--- NOTE | ~2025-02-22 | XR_ITS ---
XR chest 2V Ordering provider: Manuel Doan MD History: 74 years Female with . weakness . Comparison: None. FINDINGS: MEDIASTINUM: The cardiac silhouette is slightly enlarged. Congestive eva. LUNGS: No infiltrates, effusions or pneumothorax. OTHER: No free air under the diaphragm. Degenerative the spine. IMPRESSION: No acute cardiopulmonary pathology. Reviewed, dictated and finalized at location A.
--- OUTSIDE RECORDS SUMMARY | 2025-02-22 15:10 | XMS_ITS | Clinical Summary ---
Author Organization [facility] Virtual Care Address [address] [place] [address] Phone Care Team Providers Care Inside Sales Representative Name Role Phone Oumar Sarkar DO Primary Care Provider [phone] Osmin Guo MD Unavailable [phone] Oumar Kaur MD Unavailable [phone] Allergies Active Allergy Reactions Criticality Noted Date [...] (07/13/2021): Added automatically from request for surgery [id number] Trochanteric bursitis of right hip 05/04/2021 Cervicalgia 09/01/2020 Cervical radiculopathy 09/01/2020 Sacroiliitis 03/12/2020 Degenerative lumbar spinal stenosis 12/11/2019 DDD (degenerative disc disease), lumbar 12/11/19 20 Lumbar radiculopathy 12/11/2019 Insomnia secondary to chronic pain 12/11/2019 local company intermodal truck driver (current) use of opiate analgesic 05/15 Lumbar post-laminectomy [id number]-wdj-dvinvbejjrn d 06/20/2018 Fibromyalgia 06/20/2018 Chronic bilateral low back pain with right-sided sciatica 12/15/2017 Encounters Date Type Department Care Team Description 02/10/2025 Documentation [facility] [address] [facility] [address] [place] [address] Marv Ashraf MD 02/05/2025 12:13 PM CDT - 02/05/2025 11:59 PM CDT Hospital Encounter [facility] Neurological Disorders Testing [address] [place] [address] Spinal stenosis, lumbar region without neurogenic claudication; Spinal stenosis, lumbar region with neurogenic claudication; Spondylosis without myelopathy or radiculopathy, lumbar region Discharge Disposition: Discharge to home or self care 01/31/2025 Telephone [facility] [address] [facility] [address] [place] [address] Marv Ashraf MD 12/11/2024 2:30 PM CDT Office Visit [facility] Diabetes Endocrine Care at [address] [place] [address] Zenon Ruvalcaba, Type 2 diabetes [...] on file Legal Sex Female 1:36 PM BIOSOLIDS MANAGEMENT TECHNICIAN Gender Identity Not on file Sexual Orientation [...] HEPATITIS C ANTIBODY Routine 08/27/2021 10:49 AM BIOSOLIDS MANAGEMENT TECHNICIAN EGFR Routine 08/24/2021 3:04 PM BIOSOLIDS MANAGEMENT TECHNICIAN Preoperative testing COLONOSCOPY 08/18/2021 3:16 PM BIOSOLIDS MANAGEMENT TECHNICIAN from Last 3 Months or Most Recently [...] hemoglobin A1c (12/11/2024 2:35 PM CDT) Pathologist [facility] Hemoglobin A1C, POC 5.9(A) 4.0 - 5.6 % Blood 12/11/2024 2:35 PM CDT Zenon Ruvalcaba DO POINT OF CARE TEST ORDERABL ES Final Result * Diabetic Eye Exam (05/22/2024) 05/22/2024 Radha Bennett MD HEALTH MAINTENANCE Final Result * Hepatitis C antibody (08/27/2021 10:49 AM BIOSOLIDS MANAGEMENT TECHNICIAN) [facility] Hep C Ab Nonreactive Nonreactive [facility] Comment:Antibodies to HCV no t detected. Does NOT exclude the possibility of recent exposure to HCV. Blood 08/27/2021 10:4 9 AM BIOSOLIDS MANAGEMENT TECHNICIAN 08/27/2021 11:07 AM BIOSOLIDS MANAGEMENT TECHNICIAN Notinfile Unknown LAB MICROBIOLOGY - GENERAL ORD ERABLES Edited Result - Final [facility] [place] [address] * (ABNORMAL) eGFR (08/24/2021 3:04 PM BIOSOLIDS MANAGEMENT TECHNICIAN) [facility] eGFR 50(L) 90 - 130 mL/min/1. 73 [...] last reviewed 2021. Blood 08/24/2021 3:04 PM BIOSOLIDS MANAGEMENT TECHNICIAN 08/24/2021 4:18 PM BIOSOLIDS MANAGEMENT TECHNICIAN us Jenae Ruiz MD LAB BLOOD ORDERABLE S Final Result [facility] Department [place] [address] * COLONOSCOPY (08/18/2021 3:16 PM BIOSOLIDS MANAGEMENT TECHNICIAN) Anatomical Region Laterality Modality Other Narrative Procedure Note Lo, Aydin Augustine MD - 08/18/2021 3:16 PM CST ENDOSCOPY LAB Patient Name: Antonia Mckenna Procedure Date: 08/18/2021 3:16 PM Date of : 1950 Admit Type: Outpatient Age: 70 Gender: Female Attending MD: Aydin Lo M.D. Room: [facility] ENDOSCOPY ROOM 02 Note Status: Addendum Procedure: [...] The scope was passed under direct vision.The [id number] was introduced through the anusand advanced to [...] bowel preparation was evaluated using the BBPS ([place] Bowel Preparation Scale) with scores of: Right [...] meats, exercise regularly, maintain healthy weight. See [facility] Cancer website for moreprevention tips. - Contact Information: During normal business hours (8AM-4PM) - Pleasecall the Nurse Coordinator: [phone]. call center recruiter physician after hours, weekends andholidays: [phone] and asked for the [place]-Rectalphysician internal combustion engine inspector. - A polyp or polyps were removed [...] Aydin Lo M.D. 08/18/2021 4:49:50 PM Aydin oL MD ENDOSCOPY PROCEDURES Edited Result - Final from Last 3 Months or Most Recently Relevant to Health Maintenance Insurance MEDICARE [facility] Address: [address] [address] [place] [address] [facility] CHOICE PLUS [facility] MEDICARE ADVANTAGE MEDICARE [facility] Address: [address] [address] [place] [address] IDPA IDPA [facility] MEDICARE [facility] Address: [address] [address] [place] [address] [facility] MEDICARE ADVANTAGE IDPA Advance Directives For more information, please contact: [phone] * Full Code (Latest Code Status on File) Date Activated Date Inactivated Comments 08/18/2021 2:02 PM 08/18/2021 9:26 PM Care Teams Inside Sales Representative Relationship Specialty Start Date End Date Oumar Sarkar DO [address] [place] [address] PCP - General Family Practice 10/04/17 Osmin Guo MD [address] [place] [address] Consulting Physician Gynecologic Oncology 08/20/21 Oumar Kaur MD [address] [place] [address] [address] Anesthesiologist Pain Management 07/22/22
--- OUTSIDE RECORDS SUMMARY | 2025-02-22 15:10 | XMS_ITS ---
Author Organization [facility] Virtual Care Address [address] [place] [address] Phone Care Team Providers Care Clinical Lab Specialist Name Role Phone Oumar Sarkar DO Primary Care Provider [phone] Osmin Guo MD Unavailable [phone] Oumar Kaur MD Unavailable [phone] Active Problems Problem Noted Date Diagnosed Date History of endometrial cancer 11/25/2023 Left hip pain 07/22/2022 Acute pain of both knees 07/22/2022 Lumbar facet arthropathy 03/30/2022 Endometrial cancer 07/07/2021 Overview (07/13/2021): Added automatically from request for surgery [id number] Trochanteric bursitis of right hip 05/04/2021 Cervicalgia 09/01/2020 Cervical radiculopathy 09/01/2020 Sacroiliitis 03/12/2020 Degenerative lumbar spinal stenosis 12/11/2019 DDD (degenerative disc disease), lumbar 12/11/19 20 Lumbar radiculopathy 12/11/2019 Insomnia secondary to chronic pain 12/11/2019 [facility] (current) use of opiate analgesic 05/15 Lumbar post-laminectomy [id number]-mid-choinmwqlfd d 06/20/2018 Fibromyalgia 06/20/2018 Chronic bilateral low [...]
--- OUTSIDE RECORDS SUMMARY | 2025-02-22 15:10 | XMS_ITS | Referral Summary ---
Author Organization [facility] Virtual Care Address [address] [place] [address] Phone Care Team Providers Care Glass Enamel Mixer Name Role Phone Oumar Sarkar DO Primary Care Provider [phone] Osmin Guo MD Unavailable [phone] Oumar Kaur MD Unavailable [phone] Encounters Date Type Department Care Team Description 02/10/2025 Documentation [facility] [address] [facility] [address] [place] [address] Marv Ashraf MD 02/05/2025 12:13 PM CDT - 02/05/2025 11:59 PM CDT Hospital Encounter [facility] Neurological Disorders Testing 1 [place] [address] Spinal stenosis, lumbar region without neurogenic claudication; Spinal stenosis, lumbar region with neurogenic claudication; Spondylosis without myelopathy or radiculopathy, lumbar region Discharge Disposition: Discharge to home or self care 01/31/2025 Telephone [facility] [address] [place] [address] [address] [place] [address] Marv Ashraf MD 12/11/2024 2:30 PM CDT Office Visit [facility] Diabetes Endocrine Care at [address] [place] [id number] Zenon Ruvalcaba, Type 2 diabetes mellitus with [...] (07/13/2021): Added automatically from request for surgery [id number] Trochanteric bursitis of right hip 05/04/2021 Cervicalgia 09/01/2020 Cervical radiculopathy 09/01/2020 Sacroiliitis 03/12/2020 Degenerative lumbar spinal stenosis 12/11/2019 DDD (degenerative disc disease), lumbar 12/11/19 20 Lumbar radiculopathy 12/11/2019 Insomnia secondary to chronic pain 12/11/2019 shelter (current) use of opiate analgesic 05/15 Lumbar post-laminectomy gyxgynyt-sna-dwccgtmgbct d 06/20/2018 Fibromyalgia 06/20/2018 Chronic bilateral low [...] on file Legal Sex Female 1:36 PM FLORICULTURE TEACHER Gender Identity Not on file Sexual Orientation [...] HEPATITIS C ANTIBODY Routine 08/27/2021 10:49 AM FLORICULTURE TEACHER EGFR Routine 08/24/2021 3:04 PM FLORICULTURE TEACHER Preoperative testing COLONOSCOPY 08/18/2021 3:16 PM FLORICULTURE TEACHER from Last 3 Months or Most Recently [...] * Hepatitis C antibody (08/27/2021 10:49 AM FLORICULTURE TEACHER) Pathologist [facility] Hep C Ab Nonreactive Nonreactive [facility] Comment:Antibodies to HCV no t detected. Does NOT exclude the possibility of recent exposure to HCV. Blood 08/27/2021 10:4 9 AM FLORICULTURE TEACHER 08/27/2021 11:07 AM FLORICULTURE TEACHER Notinfile Unknown LAB MICROBIOLOGY - GENERAL ORD ERABLES Edited Result - Final [facility] Department [place] [address] * (ABNORMAL) eGFR (08/24/2021 3:04 PM FLORICULTURE TEACHER) Pathologist [facility] eGFR 50(L) 90 - 130 mL/min/1. 73 m2 [facility] Comment: Interpretive Data Reference Interval Normal >/= [...] last reviewed 2021. Blood 08/24/2021 3:04 PM FLORICULTURE TEACHER 08/24/2021 4:18 PM FLORICULTURE TEACHER us Jenae Ruiz MD LAB BLOOD ORDERABLE S Final Result [facility] Department [place] [address] * COLONOSCOPY (08/18/2021 3:16 PM FLORICULTURE TEACHER) Anatomical Region Laterality Modality Other Narrative Procedure Note Aydin Lo MD - 08/18/2021 3:16 PM CST ENDOSCOPY LAB Patient Name: Antonia Mckenna Procedure Date: 08/18/2021 3:16 PM Date of : 1950 Admit Type: Outpatient Age: 70 Gender: Female Attending MD: Aydin Lo M.D. Room: [facility] ENDOSCOPY ROOM 02 Note Status: Addendum [...] The scope was passed under direct vision.The [id number] was introduced through the anusand advanced to [...] bowel preparation was evaluated using the BBPS ([place] Bowel Preparation Scale) with scores of: Right [...] hours (8AM-4PM) - Pleasecall the Nurse Coordinator: [phone]. assembler bicycle physician after hours, weekends andholidays: [phone] and asked for the [place]-Rectalphysician gift consultant. - A polyp or polyps were removed [...] Relevant to Health Maintenance Insurance MEDICARE IDPA [facility] CHOICE PLUS [facility] MEDICARE ADVANTAGE MEDICARE IDPA IDPA [facility] MEDICARE ADVANTAGE [facility] MEDICARE ADVANTAGE IDPA Advance Directives For more information, please contact: [phone] * Full Code (Latest Code Status on File) Date Activated Date Inactivated Comments 08/18/2021 2:02 PM 08/18/2021 9:26 PM Care Teams Glass Enamel Mixer Relationship Specialty Start Date End Date Oumar Sarkar DO [address] [place] [address] PCP - General Family Practice 10/04/17 Osmin Guo MD [address] [place] [address] Consulting Physician Gynecologic Oncology 08/20/21 Oumar Kaur MD 2 [facility] [address] [address] Anesthesiologist Pain Management 07/22/22
--- NOTE | 2025-02-22 15:26 | ECG_ITS ---
Test Date: 2025-02-22 15:23:13 Measurements Intervals Nitro Rate: 61 P: 109 MD: 191 QRS: -9 QRSD: 98 T: 22 QT: 356 QTc: 359 Interpretive Statements SINUS RHYTHM LOW QRS VOLTAGE IN PRECORDIAL LEADS [QRS DEFLECTION < 1.0 mV IN CHEST LEADS] ABNORMAL ECG Compared to ECG 02/12/2025 14:37:17 Sinus bradycardia no longer present Left-axis deviation no longer present Myocardial infarct finding no longer present Electronically Signed On 02-22-2025 16:08:13 CDT by Brian Paula M.D.
[2025-02-22 15:45] LABS: Alanine Aminotransferase 18 U/L (6-35); Albumin Level 3.8 g/dL (3.5-5.1); Alkaline Phosphatase 65 U/L (38-126); Anion Gap 9 mmol/L (4-12); Aspartate Amino Transferase 29 U/L (14-36); Bilirubin,Total 0.4 mg/dL (0.2-1.3); Blood Urea Nitrogen 61 mg/dL (7-17); Calcium 9.7 mg/dL (8.4-10.2); Carbon Dioxide 27 mmol/L (22-30); Chloride 99 mmol/L (98-107); Estimated CRCL calculation 37 ml/min; Estimated Glomerular Filt Rate 29; Glucose 115 mg/dL (65-110); Hematocrit 35.4 % (37.0-47.0); Hemoglobin 11.3 g/dL (12.0-15.0); Immature Granulocyte Percent A 0.3 % (0-0.5); Lymphocytes Absolute Auto 1.57 K/mm3 (0.9-3.2); Mean Corpuscular HGB Conc 31.9 g/dl (32-36); Mean Corpuscular Hemoglobin 30.6 pg (26-34); Mean Corpuscular Volume 95.9 fl (80-100); Nucleated Red Blood Cells Absolute Auto 0.000 K/mm3 (0.0-0.012); Nucleated Red Blood Cells Perc 0.0 % (0.0-0.2); Platelet Count Result 268 k/mm3 (150-375); Potassium 4.7 mmol/L (3.4-5.0); Red Blood Count 3.69 M/mm3 (4.2-5.4); Sodium 135 mmol/L (137-145); Total Protein 6.8 g/dL (6.3-8.2); White Blood Count 9.3 K/mm3 (4.5-10.0)
[2025-02-22 15:52] LABS: Add Urine Microscopic? NO; Appearance Urine Clear (Clear); Glucose Urine UA Negative (Negative); Leukocyte Esterase Ur Negative LEU/UL (Negative); Nitrate Urine Negative (Negative); Specific Grav Ur 1.010 (1.001-1.035)
--- OUTSIDE RECORDS SUMMARY | 2025-02-22 16:18 | XMS_ITS ---
Author Organization [facility] Virtual Care Address [address] [place] [address] Phone Care Team Providers Care Material Scheduler Name Role Phone Oumar Sarkar DO Primary Care Provider [phone] Osmin Guo MD Unavailable [phone] Oumar Kaur MD Unavailable [phone] Active Problems Problem Noted Date Diagnosed Date History of endometrial cancer 11/25/2023 Left hip pain 07/22/2022 Acute pain of both knees 07/22/2022 Lumbar facet arthropathy 03/30/2022 Endometrial cancer 07/07/2021 Overview (07/13/2021): Added automatically from request for surgery [id number] Trochanteric bursitis of right hip 05/04/2021 Cervicalgia 09/01/2020 Cervical radiculopathy 09/01/2020 Sacroiliitis 03/12/2020 Degenerative lumbar spinal stenosis 12/11/2019 DDD (degenerative disc disease), lumbar 12/11/19 20 Lumbar radiculopathy 12/11/2019 Insomnia secondary to chronic pain 12/11/2019 alf (current) use of opiate analgesic 05/15 Lumbar post-laminectomy snqaeaxe-ayr-sathwjvwfnx d 06/20/2018 Fibromyalgia 06/20/2018 Chronic bilateral low [...]
--- OUTSIDE RECORDS SUMMARY | 2025-02-22 16:18 | XMS_ITS | Referral Summary ---
Author Organization [facility] Virtual Care Address [address] [place] [phone] Phone Care Team Providers Care Ham Facer Name Role Phone Oumar Sarkar DO Primary Care Provider [phone] Osmin Guo MD Unavailable [phone] Oumar Kuar MD Unavailable [phone] Encounters Date Type Department Care Team Description 02/10/2025 Documentation [facility] 4 [facility] [address] [place] [address] Marv Ashraf MD 02/05/2025 12:13 PM CDT - 02/05/2025 11:59 PM CDT Hospital Encounter [facility] Neurological Disorders Testing [address] [place] [address] Spinal stenosis, lumbar region without neurogenic claudication; Spinal stenosis, lumbar region with neurogenic claudication; Spondylosis without myelopathy or radiculopathy, lumbar region Discharge Disposition: Discharge to home or self care 01/31/2025 Telephone [facility] [address] [place] [address] [address] [place] [address] Marv Ashraf MD 12/11/2024 2:30 PM CDT Office Visit [facility] Diabetes Endocrine Care at [address] [place] [id number] Zenon Ruvalcaba, Type 2 diabetes mellitus with [...] (07/13/2021): Added automatically from request for surgery [id number] Trochanteric bursitis of right hip 05/04/2021 Cervicalgia 09/01/2020 Cervical radiculopathy 09/01/2020 Sacroiliitis 03/12/2020 Degenerative lumbar spinal stenosis 12/11/2019 DDD (degenerative disc disease), lumbar 12/11/19 20 Lumbar radiculopathy 12/11/2019 Insomnia secondary to chronic pain 12/11/2019 FDC (current) use of opiate analgesic 05/15 Lumbar post-laminectomy [id number]-uzh-[id number] d 06/20/2018 Fibromyalgia 06/20/2018 Chronic bilateral low [...] on file Legal Sex Female 1:36 PM CLINICAL LAB SPECIALIST Gender Identity Not on file Sexual Orientation [...] HEPATITIS C ANTIBODY Routine 08/27/2021 10:49 AM CLINICAL LAB SPECIALIST EGFR Routine 08/24/2021 3:04 PM CLINICAL LAB SPECIALIST Preoperative testing COLONOSCOPY 08/18/2021 3:16 PM CLINICAL LAB SPECIALIST from Last 3 Months or Most Recently [...] A1c (12/11/2024 2:35 PM CDT) Pathologist [facility] Hemoglobin A1C, POC 5.9(A) 4.0 - 5.6 % Blood 12/11/2024 2:35 PM CDT Zenon Ruvalcaba DO POINT OF CARE TEST ORDERABL ES Final Result * Diabetic Eye Exam (05/22/2024) 05/22/2024 Historical Provider HEALTH MAINTENANCE Final Result * Hepatitis C antibody (08/27/2021 10:49 AM CLINICAL LAB SPECIALIST) Pathologist [facility] Hep C Ab Nonreactive Nonreactive [facility] Comment:Antibodies to HCV no t detected. Does NOT exclude the possibility of recent exposure to HCV. Blood 08/27/2021 10:4 9 AM CLINICAL LAB SPECIALIST 08/27/2021 11:07 AM CLINICAL LAB SPECIALIST Notinfile Unknown LAB MICROBIOLOGY - GENERAL ORD ERABLES Edited Result - Final [facility] One [facility] [place] [address] * (ABNORMAL) eGFR (08/24/2021 3:04 PM CLINICAL LAB SPECIALIST) Pathologist [facility] eGFR 50(L) 90 - 130 mL/min/1. 73 m2 [facility] Comment: Interpretive Data Reference Interval Normal >/= [...] last reviewed 2021. Blood 08/24/2021 3:04 PM CLINICAL LAB SPECIALIST 08/24/2021 4:18 PM CLINICAL LAB SPECIALIST us Jenae Ruiz MD LAB BLOOD ORDERABLE S Final Result [facility] One [facility] Department [place] [address] * COLONOSCOPY (08/18/2021 3:16 PM CLINICAL LAB SPECIALIST) Anatomical Region Laterality Modality Other Narrative Procedure Note Aydin Lo MD - 08/18/2021 3:16 PM CST ENDOSCOPY LAB Patient Name: Antonia Mckenna Procedure Date: 08/18/2021 3:16 PM Date of : 1950 Admit Type: Outpatient Age: 70 Gender: Female Attending MD: Aydin Lo M.D. Room: [facility] ENDOSCOPY ROOM 02 Note Status: Addendum [...] The scope was passed under direct vision.The [id number] was introduced through the anusand advanced to [...] bowel preparation was evaluated using the BBPS ([place] Bowel Preparation Scale) with scores of: Right [...] meats, exercise regularly, maintain healthy weight. See [facility] Cancer website for moreprevention tips. - Contact Information: During normal business hours (8AM-4PM) - Pleasecall the Nurse Coordinator: [phone]. yard caller physician after hours, weekends andholidays: [phone] and asked for the [place]-Rectalphysician education adviser. - A polyp or polyps were removed [...] to Health Maintenance Insurance MEDICARE IDPA [facility]ICE [facility]US [facility] MEDICARE ADVANTAGE MEDICARE IDPA IDPA [facility] MEDICARE ADVANTAGE [facility] MEDICARE ADVANTAGE IDPA Advance Directives For more information, please contact: [phone] * Full Code (Latest Code Status on File) Date Activated Date Inactivated Comments 08/18/2021 2:02 PM 08/18/2021 9:26 PM Care Teams Ham Facer Relationship Specialty Start Date End Date Oumar Sarkar DO [address] [place] [address] PCP - General Family Practice 10/04/17 Osmin Guo MD [address] [place] [address] Consulting Physician Gynecologic Oncology 08/20/21 Oumar Kaur MD 2 [facility] [address] [address] Anesthesiologist Pain Management 07/22/22
--- OUTSIDE RECORDS SUMMARY | 2025-02-22 16:18 | XMS_ITS | Clinical Summary ---
Author Organization [facility] Virtual Care Address [address] [place] [phone] Phone Care Team Providers Care Die Designer Apprentice Name Role Phone Oumar Sarkar DO Primary Care Provider [phone] Osmin Guo MD Unavailable [phone] Oumar Kaur MD Unavailable Allergies Active Allergy Reactions Criticality Noted Date [...] (07/13/2021): Added automatically from request for surgery [id number] Trochanteric bursitis of right hip 05/04/2021 Cervicalgia 09/01/2020 Cervical radiculopathy 09/01/2020 Sacroiliitis 03/12/2020 Degenerative lumbar spinal stenosis 12/11/2019 DDD (degenerative disc disease), lumbar 12/11/19 20 Lumbar radiculopathy 12/11/2019 Insomnia secondary to chronic pain 12/11/2019 intermediate card tender (current) use of opiate analgesic 05/15 Lumbar post-laminectomy cfceewbv-ert-ojxhwtrrpnp d 06/20/2018 Fibromyalgia 06/20/2018 Chronic bilateral low back pain with right-sided sciatica 12/15/2017 Encounters Date Type Department Care Team Description 02/10/2025 Documentation [facility] 4 [facility] [address] [place] [address] Marv Ashraf MD 02/05/2025 12:13 PM CDT - 02/05/2025 11:59 PM CDT Hospital Encounter [facility] Neurological Disorders Testing 1 [place] [address] Spinal stenosis, lumbar region without neurogenic claudication; Spinal stenosis, lumbar region with neurogenic claudication; Spondylosis without myelopathy or radiculopathy, lumbar region Discharge Disposition: Discharge to home or self care 01/31/2025 Telephone [facility] 4 [facility] [address] [place] [address] Marv Ashraf MD 12/11/2024 2:30 PM CDT Office Visit [facility] Group Diabetes Endocrine Care at [address] [place] [address] Zenon Ruvalcaba, Type 2 diabetes [...] on file Legal Sex Female 1:36 PM LAUNCHING PAD MECHANIC Gender Identity Not on file Sexual Orientation [...] HEPATITIS C ANTIBODY Routine 08/27/2021 10:49 AM LAUNCHING PAD MECHANIC EGFR Routine 08/24/2021 3:04 PM LAUNCHING PAD MECHANIC Preoperative testing COLONOSCOPY 08/18/2021 3:16 PM LAUNCHING PAD MECHANIC from Last 3 Months or Most Recently [...] hemoglobin A1c (12/11/2024 2:35 PM CDT) Pathologist [facility] Hemoglobin A1C, POC 5.9(A) 4.0 - 5.6 % Blood 12/11/2024 2:35 PM CDT Zenon Ruvalcaba DO POINT OF CARE TEST ORDERABL ES Final Result * Diabetic Eye Exam (05/22/2024) 05/22/2024 Radha Bennett MD HEALTH MAINTENANCE Final Result * Hepatitis C antibody (08/27/2021 10:49 AM LAUNCHING PAD MECHANIC) [facility] Hep C Ab Nonreactive Nonreactive [facility] Comment:Antibodies to HCV no t detected. Does NOT exclude the possibility of recent exposure to HCV. Blood 08/27/2021 10:4 9 AM LAUNCHING PAD MECHANIC 08/27/2021 11:07 AM LAUNCHING PAD MECHANIC Notinfile Unknown LAB MICROBIOLOGY - GENERAL ORD ERABLES Edited Result - Final [facility] [place] [address] * (ABNORMAL) eGFR (08/24/2021 3:04 PM LAUNCHING PAD MECHANIC) [facility] eGFR 50(L) 90 - 130 mL/min/1. [...] last reviewed 2021. Blood 08/24/2021 3:04 PM LAUNCHING PAD MECHANIC 08/24/2021 4:18 PM LAUNCHING PAD MECHANIC us Jenae Ruiz MD LAB BLOOD ORDERABLE S Final Result [facility] One [facility] Department [place] [address] * COLONOSCOPY (08/18/2021 3:16 PM LAUNCHING PAD MECHANIC) Anatomical Region Laterality Modality Other Narrative Procedure Note Lo, Aydin Augustine MD - 08/18/2021 3:16 PM CST ENDOSCOPY LAB Patient Name: Antonia Mckenna Procedure Date: 08/18/2021 3:16 PM Date of : 1950 Admit Type: Outpatient Age: 70 Gender: Female Attending MD: Aydin Lo M.D. Room: [facility] ENDOSCOPY ROOM 02 Note Status: Addendum [...] The scope was passed under direct vision.The [id number] was introduced through the anusand advanced to [...] bowel preparation was evaluated using the BBPS ([place] Bowel Preparation Scale) with scores of: Right [...] meats, exercise regularly, maintain healthy weight. See [facility] Cancer website for moreprevention tips. - Contact Information: During normal business hours (8AM-4PM) - Pleasecall the Nurse Coordinator: [phone]. raker buffing wheel physician after hours, weekends andholidays: [phone] and asked for the [place]-Rectalphysician employee communications coordinator. - A polyp or polyps were removed [...] Recently Relevant to Health Maintenance Insurance MEDICARE IDFL [facility] Address: [address] [address] [place] [address] [facility] MEDIC[facility] ADVANTAGE MEDICARE IDPA IDPA [facility] MEDIC[facility] AD[facility]ANTAGE [facility] Address: [address] [address] [place] [address] [facility] MEDICARE ADVANTAGE IDPA Advance Directives For more information, please contact: [phone] * Full Code (Latest Code Status on File) Date Activated Date Inactivated Comments 08/18/2021 2:02 PM 08/18/2021 9:26 PM Care Teams Die Designer Apprentice Relationship Specialty Start Date End Date Oumar Sarkar DO [address] [place] [address] PCP - General Family Practice 10/04/17 Osmin Guo MD [address] [place] [address] Consulting Physician Gynecologic Oncology 08/20/21 Oumar Kaur MD [address] [place] [address] [address] Anesthesiologist Pain Management 07/22/22
--- NOTE | 2025-02-22 16:55 | ED.GENADULT ---
HPI - General Adult General Chief complaint: Weakness Stated complaint: back pain, weakness after back surgery Time Seen by Provider: 02/22/25 15:41 History of Present Illness HPI narrative: Patient is a 74-year-old female who presents ER with weakness. She had surgery on 02/18/25 for she underwent laminectomy of L2 through S1. She was hospitalized until yesterday. She did not cough I did rehab. She has been home and has had a fall because she is too weak to ambulate to the bathroom. No injury from the fall. No new numbness or weakness of lower extremities. Denies documented fever though she has felt slightly warm. No increased pain around the incision site. Her physician was Dr. Houser. Related Data Home Medications ?Medication ?Instructions ?Recorded ?Confirmed ?Last Taken ?Type allopurinol 300 mg tablet 300 mg PO DAILY 10/22/24 02/18/25 02/17/25 History ascorbic acid (vitamin C) 500 mg 500 mg PO DAILY 10/22/24 02/18/25 02/14/25 History capsule cholecalciferol (vitamin D3) 325 325 mcg PO WEEKLY 10/22/24 02/18/25 02/14/25 History mcg (13,000 unit) capsule cyanocobalamin (vitamin B-12) 1,000 mcg PO DAILY 10/22/24 02/18/25 02/14/25 History 1,000 mcg capsule felodipine 5 mg tablet,extended 5 mg PO DAILY 10/22/24 02/18/25 02/18/25 History release 24 hr furosemide 20 mg tablet 20 mg PO QAM 10/22/24 02/18/25 02/17/25 History furosemide 40 mg tablet 40 mg PO QAM 10/22/24 02/18/25 02/17/25 History garlic 150 mg tablet 150 mg PO DAILY 10/22/24 02/18/25 02/14/25 History isosorbide mononitrate 30 mg 30 mg PO DAILY 10/22/24 02/18/25 02/18/25 History tablet,extended release 24 hr isosorbide mononitrate 60 mg 60 mg PO DAILY 10/22/24 02/18/25 02/18/25 History tablet,extended release 24 hr lisinopril 20 mg tablet 20 mg PO DAILY 10/22/24 02/18/25 02/17/25 History metoprolol succinate 100 mg 200 mg PO DAILY 10/22/24 02/18/25 02/17/25 History tablet,extended release 24 hr multivitamin 1 tablet PO DAILY 10/22/24 02/18/25 02/14/25 History omeprazole 20 mg capsule,delayed 20 mg PO DAILY 10/22/24 02/18/25 02/17/25 History release oxybutynin chloride 5 mg tablet 5 mg PO BID 10/22/24 02/18/25 02/17/25 History pregabalin 50 mg capsule 100 mg PO TID 10/22/24 02/18/25 02/18/25 History rosuvastatin 10 mg tablet 10 mg PO DAILY 10/22/24 02/18/25 02/17/25 History semaglutide 2 mg/dose (8 mg/3 mL) 2 mg subcut WEEKLY 02/12/25 02/18/25 02/04/25 History subcutaneous pen injector (Ozempic) cholecalciferol (vitamin D3) 125 125 mcg PO DAILY 02/18/25 02/18/25 02/14/25 History mcg (5,000 unit) tablet (Vitamin D3) Allergies Allergy/AdvReac Type Severity Reaction Status Date / Time propoxyphene (From Allergy Intermediate Nausea and Verified 02/22/25 15:27 Darvocet-N) Vomiting adhesive Allergy Rash Verified 02/22/25 15:27 codeine Allergy Nausea and Verified 02/22/25 15:27 Vomiting Penicillins Allergy Rash Verified 02/22/25 15:27 Sulfa (Sulfonamide Allergy Unknown Verified 02/22/25 15:27 Antibiotics) Review of Systems Review of Systems: All systems reviewed & are unremarkable except as noted in HPI and below Constitutional: Constitutional: Reports no additional constitutional complaints Cardiovascular: Cardiovascular: Reports no additional cardiovascular complaints Respiratory: Respiratory: Reports no additional respiratory complaints Gastrointestinal: Gastrointestinal: Reports no additional gastrointestinal complaints [facility] Past Medical History Medical History (Updated 02/22/25 @ 17:49 by Manuel Doan MD) Mitral valve regurgitation Former smoker CAD (coronary artery disease) PAD (peripheral artery disease) MAJO (obstructive sleep apnea) Morbid obesity Heart disease Diabetes Anxiety Surgical History Surgical History History of back surgery Family History Family History Father Diabetes mellitus Hypertension Cerebrovascular accident Heart disease History of cancer Social History Social History Smoking packs per day: 0.5 Smoking cigarettes per day: 10.0 Years smoked: 3 Smoking pack-years: 1.50 Smoking status: Never smoker Tobacco type: cigarettes Smoking end date: 08/14/94 Alcohol intake: never Substance use: never Substance use type: does not use Do You Feel Safe in your Home?: Yes Lack of Transportation: No Lack of Food: Never True Current Housing: I Have Housing Concerned About Future Housing: No Difficulty Paying Gas/Electric Bills: No Difficulty Paying for Meds: No Currently Unemployed: No Education: High School Diploma/GED Difficulty w/ Childcare or Family Care: No Living arrangements: with family Spiritual care concerns: Yes (jainism) Exam Narrative: GENERAL: Well-appearing, morbidly obese, and in no acute distress. HEAD: Normocephalic, atraumatic. ENT: Mucous membranes moist. CHEST: Clear to auscultation. No respiratory distress. HEART: Regular rate and rhythm. Normal peripheral pulses. ABDOMEN: Soft, nontender, nondistended. EXTREMITIES: Patient too weak to straight leg raise off of the bed while sitting but reports that is normal for her. When I passively flex her leg at the knee and the hip she is able to provide strength against my hand/forearm that is patient upwards. I would rate this at 4/5 strength bilaterally. She has 5/5 strength at the ankles. She has sharp touch intact bilateral lower extremities. SKIN: Warm, dry. Surgical site has bruising and marker noted around the area. Sutures are intact without wound dehiscence. No significant erythema or warmth. No drainage. NEURO: No focal deficits. Alert and oriented x3. Course Course Emergency Course: Patient resting comfortably in but having debility since discharge. Discussed with neuro surgery, Dr. Lynn, and he would like patient mid to hospitalist service. Given that patient has no obvious signs of infection on external exam in her white count is normal and she is not experiencing new weakness or numbness we will not perform any imaging at this time. Vital Signs Vital signs: Vital Signs Temperature 98.4 F 02/22/25 15:13 Pulse Rate 61 02/22/25 15:13 Respiratory Rate 16 02/22/25 15:13 Blood Pressure 103/56 L 02/22/25 15:13 Pulse Oximetry 94 02/22/25 15:13 Oxygen Delivery Room Air 02/22/25 15:13 Temperature 97.8 F 02/22/25 15:44 Pulse Rate 57 L 02/22/25 17:25 Respiratory Rate 15 02/22/25 17:25 Blood Pressure 116/68 02/22/25 17:25 Pulse Oximetry 95 02/22/25 17:25 Oxygen Delivery Room Air 02/22/25 15:13 Medical Decision Making Vital Signs Vital Signs: Vital Signs Temperature 98.4 F 02/22/25 15:13 Pulse Rate 61 02/22/25 15:13 Respiratory Rate 16 02/22/25 15:13 Blood Pressure 103/56 L 02/22/25 15:13 Pulse Oximetry 94 02/22/25 15:13 Oxygen Delivery Room Air 02/22/25 15:13 Temperature 97.8 F 02/22/25 15:44 Pulse Rate 57 L 02/22/25 17:25 Respiratory Rate 15 02/22/25 17:25 Blood Pressure 116/68 02/22/25 17:25 Pulse Oximetry 95 02/22/25 17:25 Oxygen Delivery Room Air 02/22/25 15:13 Lab Data 02/22/25 15:30 02/22/25 15:30 Labs: Lab Results 02/22/25 02/22/25 Range/Units 15:30 15:39 WBC 9.3 (4.5-10.0) K/mm3 RBC 3.69 L (4.2-5.4) M/mm3 Hgb 11.3 L (12.0-15.0) g/dL Hct 35.4 L (37.0-47.0) % MCV 95.9 (80-100) fl MCH 30.6 (26-34) pg MCHC 31.9 L (32-36) g/dl RDW 15.2 H (11.5-14.5) % Plt Count 268 (150-375) k/mm3 MPV 10.4 (7.4-10.4) fl Immature Gran % (Auto) 0.3 (0-0.5) % Neut % (Auto) 72.1 (45.5-73.1) % Lymph % (Auto) 16.9 L (18.3-44.2) % [place] % (Auto) 8.0 (2.6-8.5) % Eos % (Auto) 2.4 (0-4.4) % Baso % (Auto) 0.3 (0.2-1.2) % Lymph # (Auto) 1.57 (0.9-3.2) K/mm3 [place] # (Auto) 0.7 H (0.1-0.6) K/mm3 Eos # (Auto) 0.2 (0-0.3) K/mm3 Baso # (Auto) 0.0 (0.0-0.1) K/mm3 Abs Immat Gran (auto) 0.03 (0.00-0.031) K/mm3 Absolute Neuts (auto) 6.7 (1.3-6.7) K/mm3 Absolute Nucleated RBC 0.000 (0.0-0.012) K/mm3 Nucleated RBC % 0.0 (0.0-0.2) % Sodium 135 L (137-145) mmol/L Potassium 4.7 (3.4-5.0) mmol/L Chloride 99 (98-107) mmol/L Carbon Dioxide 27 (22-30) mmol/L Anion Gap 9 (4-12) mmol/L BUN 61 H D (7-17) mg/dL Creatinine 1.72 H (0.7-1.0) mg/dL Estim Creat Clear Calc 37 ml/min Estimated GFR 29 L (59 - ) Glucose 115 H (65-110) mg/dL Lactic Acid 0.8 (0.7-2.0) mmol/L Calcium 9.7 (8.4-10.2) mg/dL Total Bilirubin 0.4 (0.2-1.3) mg/dL AST 29 (14-36) U/L ALT 18 (6-35) U/L Alkaline Phosphatase 65 (38-126) U/L Total Protein 6.8 (6.3-8.2) g/dL Albumin 3.8 (3.5-5.1) g/dL Urine Color Yellow (Yellow) Urine Appearance Clear (Clear) Urine pH 5.0 (5.0-9.0) Ur Specific [place] 1.010 (1.001-1.035) Urine Protein Negative (Negative) mg/dL Urine Glucose (UA) Negative (Negative) mg/dL Urine Ketones Negative (Negative) mg/dL Ur Blood (Man) Negative (Negative) Urine Nitrate Negative (Negative) Urine Bilirubin Negative (Negative) Urine Urobilinogen 0.2 (<2.0) mg/dL Leukocyte Esterase Rfl Negative (Negative) JOE/UL Discharge Plan Discharge Clinical Impression: Generalized weakness, Post-operative complication Patient Disposition: Still a Patient Condition: Stable Patient Language: Burkinan Prescriptions: No Action omeprazole 20 mg capsule,delayed release(DR/EC) 20 mg PO DAILY isosorbide mononitrate 30 mg tablet extended release 24 hr 30 mg PO DAILY Patient Comments: =90mg daily isosorbide mononitrate 60 mg tablet extended release 24 hr 60 mg PO DAILY Patient Comments: =90mg Daily lisinopril 20 mg tablet 20 mg PO DAILY furosemide 20 mg tablet 20 mg PO QAM furosemide 40 mg tablet 40 mg PO QAM felodipine 5 mg tablet extended release 24 hr 5 mg PO DAILY allopurinol 300 mg tablet 300 mg PO DAILY metoprolol succinate 100 mg tablet extended release 24 hr 200 mg PO DAILY rosuvastatin 10 mg tablet 10 mg PO DAILY cyanocobalamin (vitamin B-12) 1,000 mcg capsule 1,000 mcg PO DAILY multivitamin Tablet 1 tablet PO DAILY pregabalin 50 mg capsule 100 mg PO TID oxybutynin chloride 5 mg tablet 5 mg PO BID garlic 150 mg tablet 150 mg PO DAILY ascorbic acid (vitamin C) 500 mg capsule 500 mg PO DAILY cholecalciferol (vitamin D3) 325 mcg (13,000 unit) capsule 325 mcg PO WEEKLY Ozempic 2 mg/dose (8 mg/3 mL) pen injector 2 mg SUBCUT WEEKLY Patient Comments: TUESDAYS cholecalciferol (vitamin D3) [Vitamin D3] 125 mcg (5,000 unit) tablet 125 mcg PO DAILY sennosides [senna] 8.6 mg tablet 8.6 mg PO BID PRN (Reason: constipation) Qty: 30 2RF oxycodone 5 mg tablet 5 mg PO Q4H PRN (Reason: pain) Qty: 32 0RF cyclobenzaprine 5 mg tablet 5 mg PO HS Qty: 30 0RF Follow-up/Referrals: Mello,Oumar Prakash DO [Primary Care Provider] -
--- NOTE | 2025-02-22 18:29 | P.HP_ITS ---
H&P: HPI History of Present Illness Date/Time: 02/22/25 18:29 Chief Complaint: Postop weakness and disability Narrative: 74-year-old female past medical history of CAD, CHF on diuretics hypertension, gout, neuropathy, MAJO, morbid obesity diabetes on 02/18/2025 presents the hospital disability unable to take care of herself at home. Patient is extremely poor historian. HPI is extremely limited. When asked why she came into the hospital she states that she is fine. There is nothing wrong with her. Per the ED note she is unable to care for herself at home and had acute pain that was not controlled. Patient does not know why she is taking Lasix Lab work shows hemoglobin 11.3, sodium of 135, BUN of 61, creatinine of 1.72 previous creatinine 1.18, GFR 29, UA negative for infectious process chest x-ray shows no acute process. Patient is being admitted for Melissa and possible placement. Review of Systems Review of Systems: 12 systems were reviewed and are negativ e except for as per HPI. [facility] Past Medical History Medical History (Updated 02/22/25 @ 18:43 by Rosalinda Crowe APRN) Mitral valve regurgitation Former smoker CAD (coronary artery disease) PAD (peripheral artery disease) MAJO (obstructive sleep apnea) Morbid obesity Heart disease Diabetes Anxiety Surgical History Surgical History (Updated 02/19/25 @ 11:18 by Ermelinda Sepulveda MD) History of back surgery Family History Family History Father Diabetes mellitus Hypertension Cerebrovascular accident Heart disease History of cancer Social History Social History Smoking packs per day: 0.5 Smoking cigarettes per day: 10.0 Years smoked: 3 Smoking pack-years: 1.50 Smoking status: Never smoker Alcohol intake: never Substance use: never Substance use type: does not use Do You Feel Safe in your Home?: Yes Lack of Transportation: No Lack of Food: Never True Current Housing: I Have Housing Concerned About Future Housing: No Difficulty Paying Gas/Electric Bills: No Difficulty Paying for Meds: No Currently Unemployed: No Education: High School Diploma/GED Difficulty w/ Childcare or Family Care: No Living arrangements: with family Spiritual care concerns: No Meds Home Medications and Allergies Home Medications ?Medication ?Instructions ?Recorded ?Confirmed ?Type allopurinol 300 mg tablet 300 mg PO DAILY 10/22/24 02/22/25 History ascorbic acid (vitamin C) 500 mg 500 mg PO DAILY 10/22/24 02/22/25 History capsule cyanocobalamin (vitamin B-12) 1,000 mcg PO DAILY 10/22/24 02/22/25 History 1,000 mcg capsule felodipine 5 mg tablet,extended 5 mg PO DAILY 10/22/24 02/22/25 History release 24 hr furosemide 20 mg tablet 20 mg PO QAM 10/22/24 02/22/25 History garlic 150 mg tablet 150 mg PO DAILY 10/22/24 02/22/25 History isosorbide mononitrate 30 mg 30 mg PO DAILY 10/22/24 02/22/25 History tablet,extended release 24 hr isosorbide mononitrate 60 mg 60 mg PO DAILY 10/22/24 02/22/25 History tablet,extended release 24 hr lisinopril 20 mg tablet 20 mg PO DAILY 10/22/24 02/22/25 History metoprolol succinate 100 mg 100 mg PO TID 10/22/24 02/22/25 History tablet,extended release 24 hr multivitamin 1 tablet PO DAILY 10/22/24 02/22/25 History omeprazole 20 mg capsule,delayed 20 mg PO DAILY 10/22/24 02/22/25 History release oxybutynin chloride 5 mg tablet 5 mg PO TID 10/22/24 02/22/25 History pregabalin 50 mg capsule 100 mg PO TID 10/22/24 02/22/25 History rosuvastatin 10 mg tablet 10 mg PO DAILY 10/22/24 02/22/25 History semaglutide 2 mg/dose (8 mg/3 mL) 2 mg subcut WEEKLY 02/12/25 02/22/25 History subcutaneous pen injector (Ozempic) cholecalciferol (vitamin D3) 125 125 mcg PO DAILY 02/18/25 02/22/25 History mcg (5,000 unit) tablet (Vitamin D3) cyclobenzaprine 5 mg tablet 5 mg PO HS #30 tabs 02/21/25 02/22/25 Rx oxycodone 5 mg tablet 5 mg PO Q4H PRN pain #32 tabs 02/21/25 02/22/25 Rx sennosides 8.6 mg tablet (senna) 8.6 mg PO BID PRN constipation #30 02/21/25 02/22/25 Rx tabs Allergies Allergy/AdvReac Type Severity Reaction Status Date / Time propoxyphene (From Allergy Intermediate Nausea and Verified 02/22/25 15:27 Darvocet-N) Vomiting adhesive Allergy Rash Verified 02/22/25 15:27 codeine Allergy Nausea and Verified 02/22/25 15:27 Vomiting Penicillins Allergy Rash Verified 02/22/25 15:27 Sulfa (Sulfonamide Allergy Unknown Verified 02/22/25 15:27 Antibiotics) Vital Signs Vital Signs - 24 hr 02/22/25 15:13 02/22/25 15:44 02/22/25 16:31 Temperature 98.4 F 97.8 F Pulse Rate 61 59 L 59 L Respiratory Rate 16 17 16 Blood Pressure 103/56 L 109/54 L 106/63 Pulse Oximetry 94 95 96 Oxygen Delivery Room Air 02/22/25 17:25 02/22/25 18:10 Temperature 97.6 F Pulse Rate 57 L 63 Respiratory Rate 15 16 Blood Pressure 116/68 125/71 Pulse Oximetry 95 96 Oxygen Delivery Exam Narrative: General: well appearing, appears stated age. HEENT: normocephalic, atraumatic. Mucous membranes moist. EOMI, PERRLA, bilateral sclera anicteric, no conjunctival injection. Neck supple without JVD, lymphadenopathy, or bruit. Respiratory: clear to ascultation bilaterally. No rales/rhonic/wheezes. Cardiovascular: Regular rate and rhythm, normal S1-S2 upon ascultation. No murmurs, rubs, or clicks. PMI is nondisplaced, capillary refill less than 3 second. Abdomen: Obese Soft, round, no pulsatile masses, nondistended and nontender. No rebound, no guarding. No CVA tenderness, no hepatosplenomegaly. Bowel sounds present to all four quadrants. No high pitch or tinkling sounds, resonant to percussion. Extremities: No cyanosis, clubbing, or edema present. Pulses are palpable 2/2. Active ROM to all four extremities. Neuro: Alert and orientated x 4. PERRLA. Cranial nerves 2-12 intact without focal deficit. Skin: Warm, dry, and intact, without rash, erythema, or lesion. Psych: pleasant, cooperative, normal speech, normal affect, no hallucinations, no dysarthia H&P: Results Labs Labs: Short CBC 02/22/25 Range/Units 15:30 WBC 9.3 (4.5-10.0) K/mm3 Hgb 11.3 L (12.0-15.0) g/dL Hct 35.4 L (37.0-47.0) % Plt Count 268 (150-375) k/mm3 BMP 02/22/25 15:30 Sodium 135 L Potassium 4.7 Chloride 99 Carbon Dioxide 27 BUN 61 H D Creatinine 1.72 H Glucose 115 H Calcium 9.7 Liver Function 02/22/25 Range/Units 15:30 Total Bilirubin 0.4 (0.2-1.3) mg/dL AST 29 (14-36) U/L ALT 18 (6-35) U/L Alkaline Phosphatase 65 (38-126) U/L Albumin 3.8 (3.5-5.1) g/dL Urine 02/22/25 Range/Units 15:39 Urine Color Yellow (Yellow) Urine Appearance Clear (Clear) Urine pH 5.0 (5.0-9.0) Ur Specific [place] 1.010 (1.001-1.035) Urine Protein Negative (Negative) mg/dL Urine Glucose (UA) Negative (Negative) mg/dL Assessment and Plan Assessment and plan (1) MELISSA (acute kidney injury): Code(s): N17.9 - Acute kidney failure, unspecified Status: Acute Assessment and Plan: 500 cc bolus Gentle hydration, monitor for fluid overload BMP in the morning Hold lisinopril, allopurinol and other nephrotoxic medications (2) Generalized weakness: Code(s): R53.1 - Weakness Status: Acute Assessment and Plan: Postop pain verses MELISSA versus other PT OT eval and treat Fall precaution May need placement (3) Status post lumbar laminectomy: Code(s): Z98.890 - Other specified postprocedural states Status: Acute Assessment and Plan: By Neurosurgery on 02/18/2025 Neurosurgery consulted pending recommendations Pain management and muscle relaxers Fall precaution (4) Diabetes: Code(s): E11.9 - Type 2 diabetes mellitus without complications Status: Acute Assessment and Plan: Hold metformin due to MELISSA Accu-Cheks a.c. HS SSI Hold Lyrica due to MELISSA (5) CHF (congestive heart failure): Code(s): I50.9 - Heart failure, unspecified Status: Acute Assessment and Plan: Continue Lasix. (6) CAD (coronary artery disease): Code(s): I25.10 - Atherosclerotic heart disease of [place] coronary artery without angina pectoris Status: Acute Assessment and Plan: Continue metoprolol, Imdur, hold lisinopril, Quality VTE Prophylaxis VTE prophylaxis: mechanical ordered and pharmacologic ordered Hospitalist MIPS Advance Care Plan I have confirmed that the patient's Advanced Care Plan is present, code status is documented, or surrogate decision maker is listed in patient medical record.: Yes Medication Reconciliation I have utilized all available resources to obtain, update and review the patients current medications (includes all prescriptions, OTC, herbals, cannabis, and nutritional supplements).: Yes
--- NOTE | 2025-02-22 18:46 | ADMGEN ---
This patient, Charleen Mckenna, was admitted to Medical Room 341-01. Patient/family oriented to hospital policies and general routines including ID bracelet, bed and alarms, visiting hours, pain management, procedures, bathroom and other care routines, personal items, smoking policy, room service/diet, and visiting hours. Information on how to activate the Rapid Response Team has been discussed. Patient/Family are encouraged to report perceived risks to care and to ask questions if they do not understand what they are told or what they should do.
[2025-02-22] MEDS: SENNA/DOCUSATE SODIUM TABLET 1 TAB PO (20:58)
[2025-02-22] MEDS: ACETAMINOPHEN 325 MG TABLET 650 MG PO ×2 (20:59→23:39)
[2025-02-22] MEDS: SODIUM CHLORIDE 0.9% IV 500 ML IV CONT (20:59)
[2025-02-22] MEDS: SODIUM CHLORIDE 0.9% IV 1,000 ML 75 ML IV CONT (22:30)
[2025-02-23] MEDS: ACETAMINOPHEN 325 MG TABLET 650 MG PO ×3 (05:15→17:24)
[2025-02-23 06:00] VITALS: BP 110/67; PULSE 52; RESP 18; TEMP 36.5; O2SAT 96
[2025-02-23 06:25] LABS: Hematocrit 32.9 % (37.0-47.0); Hemoglobin 10.3 g/dL (12.0-15.0); Immature Granulocyte Percent A 0.5 % (0-0.5); Lymphocytes Absolute Auto 1.93 K/mm3 (0.9-3.2); Mean Corpuscular HGB Conc 31.3 g/dl (32-36); Mean Corpuscular Hemoglobin 30.5 pg (26-34); Mean Corpuscular Volume 97.3 fl (80-100); Nucleated Red Blood Cells Absolute Auto 0.000 K/mm3 (0.0-0.012); Nucleated Red Blood Cells Perc 0.0 % (0.0-0.2); Platelet Count Result 251 k/mm3 (150-375); Red Blood Count 3.38 M/mm3 (4.2-5.4); White Blood Count 6.3 K/mm3 (4.5-10.0)
[2025-02-23 06:46] LABS: Anion Gap 6 mmol/L (4-12); Blood Urea Nitrogen 62 mg/dL (7-17); Calcium 9.4 mg/dL (8.4-10.2); Carbon Dioxide 27 mmol/L (22-30); Chloride 103 mmol/L (98-107); Estimated CRCL calculation 43 ml/min; Estimated Glomerular Filt Rate 34; Glucose 111 mg/dL (65-110); Potassium 4.4 mmol/L (3.4-5.0); Sodium 136 mmol/L (137-145)
[2025-02-23] MEDS: FUROSEMIDE 20 MG TABLET PO (09:40)
[2025-02-23 09:41] VITALS: PULSE 62
[2025-02-23] MEDS: ISOSORBIDE MONONITRATE 30 MG TAB.ER.24H PO (09:41)
[2025-02-23] MEDS: ISOSORBIDE MONONITRATE 60 MG TAB.ER.24H PO (09:41)
[2025-02-23] MEDS: METOPROLOL SUCCINATE EXT REL 100 MG TABCR 200 MG PO (09:41)
[2025-02-23] MEDS: ROSUVASTATIN 10 MG TABLET PO (09:42)
[2025-02-23] MEDS: FELODIPINE 5 MG TAB CR PO (09:42)
[2025-02-23] MEDS: SODIUM CHLORIDE 0.9% IV 1,000 ML 75 ML IV CONT ×2 (12:23→21:41)
--- NOTE | 2025-02-23 12:34 | P.PNIM_ITS ---
Progress Note: A&P Assessment and Plan (1) MELISSA (acute kidney injury): Code(s): N17.9 - Acute kidney failure, unspecified Status: Acute Assessment and Plan: 500 cc bolus Gentle hydration, monitor for fluid overload BMP in the morning Hold lisinopril, allopurinol and other nephrotoxic medications 02/23/25: * Overall improvement in Cr fro1.72-->1.49. * Continue gentle hydration until at baseline Cr of 1.18. * Continue to trend daily and monitor. (2) Generalized weakness: Code(s): R53.1 - Weakness Status: Acute Assessment and Plan: Postop pain verses MELISSA versus other PT OT eval and treat Fall precaution May need placement 02/23/25: * Awaiting PT/OT eval and recs (3) Status post lumbar laminectomy: Code(s): Z98.890 - Other specified postprocedural states Status: Acute Assessment and Plan: By Neurosurgery on 02/18/2025 Neurosurgery consulted pending recommendations Pain management and muscle relaxers Fall precaution 02/23/25: * Continue pain management * Pending NSY evaluation and recs. (4) Diabetes: Code(s): E11.9 - Type 2 diabetes mellitus without complications Status: Acute Assessment and Plan: Hold metformin due to MELISSA Accu-Cheks cristo HS SSI Hold Lyrica due to MELISSA 02/23/25: * Continue SSI * Continue hypoglycemic protocol * Continue glucose checks AC and HS * Check A1C * Consider addition of Lantus if good control of glucose has not been achieved. (5) CHF (congestive heart failure): Code(s): I50.9 - Heart failure, unspecified Status: Acute Assessment and Plan: Continue Lasix. 02/23/25: * Continue Lasix as renal function is improving overall. * Monitor for any s/s of fluid overload. Consider ECHO if any sign of decompensation as there is no ECHO listed in the EMR. * Daily weights. (6) CAD (coronary artery disease): Code(s): I25.10 - Atherosclerotic heart disease of [place] coronary artery without angina pectoris Status: Acute Assessment and Plan: Continue metoprolol, Imdur, hold lisinopril, 02/23/25: * Continue current medications. Time Spent With Patient Time with patient: 15 - 25 minutes Subjective Date/time seen: 02/23/25 12:34 Interval history: This pt is examined at the bedside in interval assessment. Pt is without any acute complaints at this time. Her renal function is improving but not yet at baseline. She was discharged the day prior to coming back to the ER, but has not picked up her medications that were prescribed on discharge and she has not yet picked up her new walker that was ordered and reportedly was using a rollator and fell. No new complaints or symptoms. She tells me that she thinks she was discharged too soon and needed rehab. I am told by Care coordination that she did not qualify for rehab and her insurance would not pay. Review of Systems Review of Systems: All systems reviewed & are unremarkable except as noted in HPI and below Exam Const: General: comfortable and no acute distress Other: Obese female pt lying supine at this time in no acute distress. HENMT: Face/Nose/Sinus: Normal nares present Mouth: Yes moist mucous membranes Eyes: General: appearance normal, both eyes and all related structures Sclera: sclerae normal Pupils: Equal, round and reactive pupils present Neck: Neck: not supple and No no JVD Lymphatic: lymphadenopathy not noted Resp: Effort & Inspection: normal respiratory effort Auscultation: clear to auscultation bilaterally Cardio: Rate: regular rate Rhythm: regular rhythm Heart sounds: no gallops, no murmurs and no rubs GI: Inspection: non-distended GI Palp: Yes Soft to palpation and No Tenderness to palpation present (GI) Auscultation: normal bowel sounds Skin: General skin exam: normal color, no rashes or lesions noted and no erythema Wounds: no wounds Neuro: Speech: normal speech Motor exam (neuro): Abnormal motor strength present (Generalized weakness) Sensory Exam: normal sensation Extrem: General: normal to inspection Psych: Mental Status: mental status grossly normal Affect: normal affect Objective Data Vital Signs Vital Signs: Vital Signs - 24 hr 02/22/25 15:13 02/22/25 15:44 02/22/25 16:31 Temperature 98.4 F 97.8 F Pulse Rate 61 59 L 59 L Respiratory Rate 16 17 16 Blood Pressure 103/56 L 109/54 L 106/63 Pulse Oximetry 94 95 96 Oxygen Delivery Room Air 02/22/25 17:25 02/22/25 18:10 02/22/25 19:01 Temperature 97.6 F 98.3 F Pulse Rate 57 L 63 58 L Respiratory Rate 15 16 18 Blood Pressure 116/68 125/71 116/62 Pulse Oximetry 95 96 97 Oxygen Delivery 02/22/25 19:53 02/22/25 20:00 02/22/25 22:00 Temperature 98.1 F Pulse Rate 56 L 56 L Respiratory Rate 18 18 Blood Pressure 135/61 Pulse Oximetry 93 97 97 Oxygen Delivery Room Air Room Air 02/23/25 06:00 02/23/25 09:41 Temperature 97.7 F Pulse Rate 52 L 62 Respiratory Rate 18 Blood Pressure 110/67 Pulse Oximetry 96 Oxygen Delivery Intake/Output Intake/Output: Intake & Output 02/20/25 02/21/25 02/22/25 02/23/25 23:59 23:59 23:59 23:59 Intake Total 500 1000 Output Total 400 1200 Balance 100 -200 Meds/Results Medications: Active Medications Generic Name Dose Route Start Last Admin Trade Name Freq PRN Reason Stop Dose Admin Acetaminophen 650 mg 02/22/25 17:35 Acetaminophen 325 Mg Tablet PO Q4H PRN Mild Pain (1-3) or Fever Acetaminophen 650 mg 02/22/25 18:50 02/23/25 12:22 Acetaminophen 325 Mg Tablet PO 650 mg Q6HR BRENNA Administration Hydrocodone Bitart/Acetaminophen 1 tab 02/22/25 17:35 Hydrocodone/Acetaminophen (*Crx) 5-325 Mg Tablet PO Q4H PRN Pain Rated 4-6 Dextrose 12.5 gm 02/22/25 18:45 Dextrose 50% 25 Gm/50 Ml Syringe IV PUSH PRN PRN Hypoglycemia Protocol Felodipine 5 mg 02/23/25 09:00 02/23/25 09:42 Felodipine 5 Mg Tab Cr PO 5 mg DAILY BRENNA Administration Furosemide 20 mg 02/23/25 09:00 02/23/25 09:40 Furosemide 20 Mg Tablet PO 20 mg QAM BRENNA Administration Glucagon 1 mg 02/22/25 18:45 Glucagon For Inj 1 Mg Vial IM PRN PRN Hypoglycemia Protocol Glucose 15 gm 02/22/25 18:45 Glucose Oral Gel 15 Gm Of Glucse In 37.5 Gm Tube PO PRN PRN Hypoglycemia Protocol Heparin Sodium (Porcine) 5,000 units 02/23/25 09:00 02/23/25 09:42 Heparin Sodium 5,000 Units/Ml Vial SUB-Q 5,000 units Q12HR BRENNA Administration Sodium Chloride 1,000 mls @ 75 mls/hr 02/22/25 18:45 02/23/25 12:23 Normal Saline Iv IV CONT 75 mls/hr .[id number] BRENNA Administration Dextrose 1,000 mls @ 100 mls/hr 02/22/25 18:45 Dextrose 5% 1,000 Ml IVPB PRN PRN Hypoglycemia Protocol Insulin Aspart 2 - 5 units 02/23/25 08:00 02/23/25 12:22 Insulin Aspart (*Bkc) 100 Units/Ml SUB-Q Not Given TIDWM [facility] Protocol Insulin Aspart 1 - 2 units 02/22/25 21:00 02/22/25 21:07 Insulin Aspart (*Bkc) 100 Units/Ml SUB-Q Not Given HS [facility] Protocol Isosorbide Mononitrate 60 mg 02/23/25 09:00 02/23/25 09:41 Isosorbide Mononitrate 60 Mg Tab.Er.24h PO 60 mg DAILY [facility] Administration Isosorbide Mononitrate 30 mg 02/23/25 09:00 02/23/25 09:41 Isosorbide Mononitrate 30 Mg Tab.Er.24h PO 30 mg DAILY [facility] Administration Methocarbamol 750 mg 02/22/25 21:00 02/23/25 12:22 Methocarbamol 750 Mg Tablet PO 750 mg QID [facility] Administration Metoprolol Succinate 200 mg 02/23/25 09:00 02/23/25 09:41 Metoprolol Succinate Ext Rel 100 Mg Tabcr PO 200 mg DAILY [facility] Administration Morphine Sulfate 2 mg 02/22/25 17:35 Morphine Sulfate (*Crx) 2 Mg/Ml Inj IV PUSH Q2H PRN Pain Rated 7-10 Ondansetron HCl 4 mg 02/22/25 17:35 Ondansetron Inj 4 Mg/2 Ml Vial IV PUSH Q4H PRN Nausea Oxybutynin Chloride 5 mg 02/23/25 09:00 02/23/25 12:29 Oxybutynin Chloride 5 Mg Tablet PO 5 mg TID [facility] Administration Oxycodone HCl 5 mg 02/22/25 18:46 Oxycodone Hcl (*Crx) 5 Mg Tab Ir PO Q4H PRN Pain Rated 4-6 Oxycodone HCl 10 mg 02/22/25 18:46 Oxycodone Hcl (*Crx) 5 Mg Tab Ir PO Q4H PRN Pain Rated 7-10 Rosuvastatin Calcium 10 mg 02/23/25 09:00 02/23/25 09:42 Rosuvastatin 10 Mg Tablet PO 10 mg DAILY [facility] Administration Senna 8.6 mg 02/22/25 22:22 Sennosides 8.6 Mg Tablet PO BID PRN constipation Senna/Docusate Sodium 1 tab 02/22/25 21:00 02/22/25 20:58 Senna/Docusate Sodium Tablet PO 1 tab HS BRENNA Administration Radiology Results: ITS Impressions Chest X-Ray 02/22/25 16:09 IMPRESSION: No acute cardiopulmonary pathology. Labs Labs: Laboratory Results - last 24 hr 02/22/25 02/22/25 02/22/25 15:30 15:39 21:06 WBC 9.3 RBC 3.69 L Hgb 11.3 L Hct 35.4 L MCV 95.9 MCH 30.6 MCHC 31.9 L RDW 15.2 H Plt Count 268 MPV 10.4 Immature Gran % (Auto) 0.3 Neut % (Auto) 72.1 Lymph % (Auto) 16.9 L [place] % (Auto) 8.0 Eos % (Auto) 2.4 Baso % (Auto) 0.3 Lymph # (Auto) 1.57 [place] # (Auto) 0.7 H Eos # (Auto) 0.2 Baso # (Auto) 0.0 Abs Immat Gran (auto) 0.03 Absolute Neuts (auto) 6.7 Absolute Nucleated RBC 0.000 Nucleated RBC % 0.0 Sodium 135 L Potassium 4.7 Chloride 99 Carbon Dioxide 27 Anion Gap 9 BUN 61 H D Creatinine 1.72 H Estim Creat Clear Calc 37 Estimated GFR 29 L Glucose 115 H POC Capillary Glucose 164 H Lactic Acid 0.8 Calcium 9.7 Total Bilirubin 0.4 AST 29 ALT 18 Alkaline Phosphatase 65 Total Protein 6.8 Albumin 3.8 Urine Color Yellow Urine Appearance Clear Urine pH 5.0 Ur Specific [place] 1.010 Urine Protein Negative Urine Glucose (UA) Negative Urine Ketones Negative Ur Blood (Man) Negative Urine Nitrate Negative Urine Bilirubin Negative Urine Urobilinogen 0.2 Leukocyte Esterase Rfl Negative 02/23/25 02/23/25 02/23/25 05:41 08:27 11:29 WBC 6.3 RBC 3.38 L Hgb 10.3 L Hct 32.9 L MCV 97.3 MCH 30.5 MCHC 31.3 L RDW 15.6 H Plt Count 251 MPV 10.3 Immature Gran % (Auto) 0.5 Neut % (Auto) 55.5 Lymph % (Auto) 30.7 [place] % (Auto) 8.6 H Eos % (Auto) 4.1 Baso % (Auto) 0.6 Lymph # (Auto) 1.93 [place] # (Auto) 0.5 Eos # (Auto) 0.3 Baso # (Auto) 0.0 Abs Immat Gran (auto) 0.03 Absolute Neuts (auto) 3.5 Absolute Nucleated RBC 0.000 Nucleated RBC % 0.0 Sodium 136 L Potassium 4.4 Chloride 103 Carbon Dioxide 27 Anion Gap 6 BUN 62 H Creatinine 1.49 H Estim Creat Clear Calc 43 Estimated GFR 34 L Glucose 111 H POC Capillary Glucose 130 H 170 H Lactic Acid Calcium 9.4 Total Bilirubin AST ALT Alkaline Phosphatase Total Protein Albumin Urine Color Urine Appearance Urine pH Ur Specific [place] Urine Protein Urine Glucose (UA) Urine Ketones Ur Blood (Man) Urine Nitrate Urine Bilirubin Urine Urobilinogen Leukocyte Esterase Rfl Quality VTE Prophylaxis VTE prophylaxis: pharmacologic ordered
[2025-02-23 13:18] LABS: Hemoglobin A1C 6.3 % (<5.7)
[2025-02-23 13:54] VITALS: BP 138/69; PULSE 69; RESP 14; TEMP 36.6; O2SAT 94
[2025-02-23 21:09] VITALS: O2SAT 95
[2025-02-23] MEDS: SENNA/DOCUSATE SODIUM TABLET 1 TAB PO (21:38)
[2025-02-23] MEDS: SENNOSIDES 8.6 MG TABLET PO (21:45)
[2025-02-23 22:00] VITALS: BP 149/73; PULSE 65; RESP 16; TEMP 36.9; O2SAT 99
[2025-02-24] MEDS: ACETAMINOPHEN 325 MG TABLET 650 MG PO ×3 (05:20→17:26)
[2025-02-24 06:00] VITALS: BP 125/61; PULSE 67; RESP 18; TEMP 36.7; O2SAT 97
[2025-02-24 09:50] VITALS: PULSE 74
[2025-02-24] MEDS: FELODIPINE 5 MG TAB CR PO (09:50)
[2025-02-24] MEDS: METOPROLOL SUCCINATE EXT REL 100 MG TABCR 200 MG PO (09:50)
[2025-02-24] MEDS: FUROSEMIDE 20 MG TABLET PO (09:50)
[2025-02-24] MEDS: ISOSORBIDE MONONITRATE 60 MG TAB.ER.24H PO (09:51)
[2025-02-24] MEDS: ROSUVASTATIN 10 MG TABLET PO (09:51)
[2025-02-24] MEDS: ISOSORBIDE MONONITRATE 30 MG TAB.ER.24H PO (09:51)
--- NOTE | 2025-02-24 10:16 | P.PNIM_ITS ---
Progress Note: A&P Assessment and Plan (1) MELISSA (acute kidney injury): Code(s): N17.9 - Acute kidney failure, unspecified Status: Acute Assessment and Plan: BUN/Cr 61/1.72 with GFR 29 on admission, previously 1.18 on 02/12/25 Improved with fluids, currently BUN/Cr 41/1.07 with GFR 50 Gentle hydration, monitor for fluid overload Hold lisinopril, allopurinol and other nephrotoxic medications Renally dose medications Monitor I/O (2) Status post lumbar laminectomy: Code(s): Z98.890 - Other specified postprocedural states Status: Acute Assessment and Plan: s/p Right L2-3, L4-5 and L5-S1 hemilaminectomy on 02/18/[address] Houser Pain management and muscle relaxers Fall precaution Neurosurgery consulted pending recommendations No signs/symptoms of infection or spinal hematoma Continue PT/OT. No bending, twisting, lifting >10lbs Incision can be HORACIO, ok to wash gently (3) Generalized weakness: Code(s): R53.1 - Weakness Status: Acute Assessment and Plan: Postop pain verses MELISSA versus other PT OT eval and treat Recommending SNF Fall precaution May need placement (4) Diabetes: Code(s): E11.9 - Type 2 diabetes mellitus without complications Status: Acute Assessment and Plan: - hypoglycemia protocol - POC blood glucose ACHS - home medication - ozempic - correct regimen ordered - low dose TIDWM and HS - A1C 6.3 Glucose stable. Continue to monitor. (5) CHF (congestive heart failure): Code(s): I50.9 - Heart failure, unspecified Status: Acute Assessment and Plan: Continue Lasix as renal function is improving overall. Monitor for any s/s of fluid overload. Consider ECHO if any sign of decompensation as there is no ECHO listed in the EMR. Daily weights. (6) CAD (coronary artery disease): Code(s): I25.10 - Atherosclerotic heart disease of [place] coronary artery without angina pectoris Status: Acute Assessment and Plan: Continue metoprolol, Imdur, hold lisinopril for MELISSA Time Spent With Patient Time with patient: 25 - 35 minutes Subjective Date/time seen: 02/24/25 10:16 Interval history: 74-year-old female past medical history of CAD, CHF on diuretics hypertension, gout, neuropathy, MAJO, morbid obesity diabetes on 02/18/2025 presents the hospital disability unable to take care of herself at home. Patient is pleasant sitting up comfortably in bed eating lunch. She continues to endorse weakness. She also notes slight abdominal pain and states that she has not had a bowel movement since 02/17. She does endorse passing flatus. She denies nausea and vomiting. She has no other complaints denying chest pain, palpitations, shortness of breath, dizziness/lightheadedness. Review of Systems Review of Systems: All systems reviewed & are unremarkable except as noted in HPI and below Exam Narrative: AF HR 67 RR 18 Spo2 97 BP 125/61 General: female in no acute respiratory distress who is nontoxic appearing, sitting up in chair HEENT: Normocephalic. Atraumatic. Extraocular movement intact. Sclera clear and anicteric. No facial asymmetry. Chest: Lungs are clear to auscultation bilaterally. CV: Heart was regular rate and rhythm. Abd: Abdomen was soft. Slight tenderness to LLQ without guarding. Nondistended. Positive bowel sounds. Ext: No clubbing, cyanosis, or edema. DP pulses bilaterally. Neuro: Patient is alert and oriented x4. Speech is clear. Objective Data Vital Signs Vital Signs: Vital Signs - 24 hr 02/23/25 13:54 02/23/25 20:00 02/23/25 21:09 Temperature 97.9 F Pulse Rate 69 Respiratory Rate 14 Blood Pressure 138/69 Pulse Oximetry 94 95 Oxygen Delivery Room Air Room Air Fraction of Inspired Oxygen 21 02/23/25 22:00 02/24/25 06:00 02/24/25 09:50 Temperature 98.5 F 98.1 F Pulse Rate 65 67 74 Respiratory Rate 16 18 Blood Pressure 149/73 H 125/61 Pulse Oximetry 99 97 Oxygen Delivery Fraction of Inspired Oxygen Intake/Output Intake/Output: Intake & Output 02/21/25 02/22/25 02/23/25 02/24/25 23:59 23:59 23:59 23:59 Intake Total 500 2469.5 120 Output Total 400 1900 800 Balance 100 569.5 -680 Meds/Results Medications: Active Medications Generic Name Dose Route Start Last Admin Trade Name Freq PRN Reason Stop Dose Admin Acetaminophen 650 mg 02/22/25 17:35 Acetaminophen 325 Mg Tablet PO Q4H PRN Mild Pain (1-3) or Fever Acetaminophen 650 mg 02/22/25 18:50 02/24/25 05:20 Acetaminophen 325 Mg Tablet PO 650 mg Q6HR BRENNA Administration Hydrocodone Bitart/Acetaminophen 1 tab 02/22/25 17:35 Hydrocodone/Acetaminophen (*Crx) 5-325 Mg Tablet PO Q4H PRN Pain Rated 4-6 Dextrose 12.5 gm 02/22/25 18:45 Dextrose 50% 25 Gm/50 Ml Syringe IV PUSH PRN PRN Hypoglycemia Protocol Felodipine 5 mg 02/23/25 09:00 02/24/25 09:50 Felodipine 5 Mg Tab Cr PO 5 mg DAILY BRENNA Administration Furosemide 20 mg 02/23/25 09:00 02/24/25 09:50 Furosemide 20 Mg Tablet PO 20 mg QAM BRENNA Administration Glucagon 1 mg 02/22/25 18:45 Glucagon For Inj 1 Mg Vial IM PRN PRN Hypoglycemia Protocol Glucose 15 gm 02/22/25 18:45 Glucose Oral Gel 15 Gm Of Glucse In 37.5 Gm Tube PO PRN PRN Hypoglycemia Protocol Heparin Sodium (Porcine) 5,000 units 02/23/25 09:00 02/24/25 09:50 Heparin Sodium 5,000 Units/Ml Vial SUB-Q 5,000 units Q12HR BRENNA Administration Sodium Chloride 1,000 mls @ 75 mls/hr 02/22/25 18:45 02/23/25 21:41 Normal Saline Iv IV CONT 75 mls/hr .[id number] BRENNA Administration Dextrose 1,000 mls @ 100 mls/hr 02/22/25 18:45 Dextrose 5% 1,000 Ml IVPB PRN PRN Hypoglycemia Protocol Insulin Aspart 2 - 5 units 02/23/25 08:00 02/24/25 09:43 Insulin Aspart (*Bkc) 100 Units/Ml SUB-Q Not Given TIDWM BRENNA Protocol Insulin Aspart 1 - 2 units 02/22/25 21:00 02/23/25 21:39 Insulin Aspart (*Bkc) 100 Units/Ml SUB-Q Not Given HS BRENNA Protocol Isosorbide Mononitrate 60 mg 02/23/25 09:00 02/24/25 09:51 Isosorbide Mononitrate 60 Mg Tab.Er.24h PO 60 mg DAILY BRENNA Administration Isosorbide Mononitrate 30 mg 02/23/25 09:00 02/24/25 09:51 Isosorbide Mononitrate 30 Mg Tab.Er.24h PO 30 mg DAILY BRENNA Administration Methocarbamol 750 mg 02/22/25 21:00 02/24/25 09:50 Methocarbamol 750 Mg Tablet PO 750 mg QID BRENNA Administration Metoprolol Succinate 200 mg 02/23/25 09:00 02/24/25 09:50 Metoprolol Succinate Ext Rel 100 Mg Tabcr PO 200 mg DAILY BRENNA Administration Morphine Sulfate 2 mg 02/22/25 17:35 Morphine Sulfate (*Crx) 2 Mg/Ml Inj IV PUSH Q2H PRN Pain Rated 7-10 Ondansetron HCl 4 mg 02/22/25 17:35 Ondansetron Inj 4 Mg/2 Ml Vial IV PUSH Q4H PRN Nausea Oxybutynin Chloride 5 mg 02/23/25 09:00 02/24/25 09:50 Oxybutynin Chloride 5 Mg Tablet PO 5 mg TID [facility] Administration Oxycodone HCl 5 mg 02/22/25 18:46 Oxycodone Hcl (*Crx) 5 Mg Tab Ir PO Q4H PRN Pain Rated 4-6 Oxycodone HCl 10 mg 02/22/25 18:46 Oxycodone Hcl (*Crx) 5 Mg Tab Ir PO Q4H PRN Pain Rated 7-10 Rosuvastatin Calcium 10 mg 02/23/25 09:00 02/24/25 09:51 Rosuvastatin 10 Mg Tablet PO 10 mg DAILY BRENNA Administration Senna 8.6 mg 02/22/25 22:22 02/23/25 21:45 Sennosides 8.6 Mg Tablet PO 8.6 mg BID PRN Administration constipation Senna/Docusate Sodium 1 tab 02/22/25 21:00 02/23/25 21:38 Senna/Docusate Sodium Tablet PO 1 tab HS [facility] Administration Radiology Results: ITS Impressions Chest X-Ray 02/22/25 16:09 IMPRESSION: No acute cardiopulmonary pathology. Labs Labs: Laboratory Results - last 24 hr 02/23/25 02/23/25 02/23/25 05:41 11:29 16:33 POC Capillary Glucose 170 H 128 H Hemoglobin A1c 6.3 H 02/23/25 02/24/25 20:22 08:20 POC Capillary Glucose 179 H 126 H Hemoglobin A1c Quality VTE Prophylaxis VTE prophylaxis: pharmacologic ordered
[2025-02-24 10:33] LABS: Hematocrit 35.7 % (37.0-47.0); Hemoglobin 11.4 g/dL (12.0-15.0); Mean Corpuscular HGB Conc 31.9 g/dl (32-36); Mean Corpuscular Hemoglobin 30.5 pg (26-34); Mean Corpuscular Volume 95.5 fl (80-100); Platelet Count Result 248 k/mm3 (150-375); Red Blood Count 3.74 M/mm3 (4.2-5.4); White Blood Count 8.0 K/mm3 (4.5-10.0)
[2025-02-24 11:17] LABS: Alanine Aminotransferase 19 U/L (6-35); Albumin Level 3.7 g/dL (3.5-5.1); Alkaline Phosphatase 64 U/L (38-126); Anion Gap 7 mmol/L (4-12); Aspartate Amino Transferase 29 U/L (14-36); Bilirubin,Total 0.5 mg/dL (0.2-1.3); Blood Urea Nitrogen 41 mg/dL (7-17); Calcium 9.9 mg/dL (8.4-10.2); Carbon Dioxide 26 mmol/L (22-30); Chloride 104 mmol/L (98-107); Estimated CRCL calculation 59 ml/min; Estimated Glomerular Filt Rate 50; Glucose 164 mg/dL (65-110); Potassium 3.8 mmol/L (3.4-5.0); Sodium 137 mmol/L (137-145); Total Protein 6.8 g/dL (6.3-8.2)
--- NOTE | 2025-02-24 13:02 | WPDNEUROSGCN ---
Assessment and Plan Assessment and plan (1) Status post lumbar laminectomy: Code(s): Z98.890 - Other specified postprocedural states Status: Acute Assessment and Plan: Resists a very pleasant 74-year-old with generalized weakness pain after lumbar laminectomy L2-L3, L4-L5, and L5-S1 on 02/18/[address] Houser. -No signs/symptoms of infection or spinal hematoma -Continue PT/OT. No bending, twisting, lifting >10lbs -Placement as appropriate -Incision can be HORACIO, ok to wash gently -Add Miralax daily for constipation, progress bowel regimen per hospitalist team -Please call for any acute changes to neurological status Reviewed w/ Dr. Houser and Leah who are in agreement Consult date: 02/24/25 Time Seen: 12:30 HPI: Charleen Mckenna is a 74 year old female Who underwent hemilaminectomy L2-L3, L4-L5, and L5-S1 on 02/18/[address] Houser. She was discharged to her daughter's house on February 21 but had difficulty being up and independently because of generalized weakness and pain. She presented to the ER on 02/22 and was found to have MELISSA and was admitted for treatment, observation, and possible placement. She states that she's doing fine. She feels generally weak in both legs but denies any focal motor deficit, saddle anesthesia, changes to bowel/bladder function other than difficulty making it to the bathroom because she's moving slowly. No signs/symptoms of infection. She worked with PT today and says it went well. She agrees with the plan for placement. Her only major concern is constipation and states she hasn't had BM since last Monday. [facility] Past Medical History Medical History (Updated 02/22/25 @ 18:43 by Rosalinda Crowe APRN) Mitral valve regurgitation Former smoker CAD (coronary artery disease) PAD (peripheral artery disease) MAJO (obstructive sleep apnea) Morbid obesity Heart disease Diabetes Anxiety Surgical History Surgical History (Updated 02/19/25 @ 11:18 by Ermelinda Sepulveda MD) History of back surgery Family History Family History Father Diabetes mellitus Hypertension Cerebrovascular accident Heart disease History of cancer Social History Social History Smoking packs per day: 0.5 Smoking cigarettes per day: 10.0 Years smoked: 3 Smoking pack-years: 1.50 Smoking status: Never smoker Alcohol intake: never Substance use: never Substance use type: does not use Do You Feel Safe in your Home?: Yes Lack of Transportation: No Lack of Food: Never True Current Housing: I Have Housing Concerned About Future Housing: No Difficulty Paying Gas/Electric Bills: No Difficulty Paying for Meds: No Currently Unemployed: No Education: High School Diploma/GED Difficulty w/ Childcare or Family Care: No Living arrangements: with family Spiritual care concerns: No Meds Home Medications and Allergies Home Medications ?Medication ?Instructions ?Recorded ?Confirmed ?Type allopurinol 300 mg tablet 300 mg PO DAILY 10/22/24 02/22/25 History ascorbic acid (vitamin C) 500 mg 500 mg PO DAILY 10/22/24 02/22/25 History capsule cyanocobalamin (vitamin B-12) 1,000 mcg PO DAILY 10/22/24 02/22/25 History 1,000 mcg capsule felodipine 5 mg tablet,extended 5 mg PO DAILY 10/22/24 02/22/25 History release 24 hr furosemide 20 mg tablet 20 mg PO QAM 10/22/24 02/22/25 History garlic 150 mg tablet 150 mg PO DAILY 10/22/24 02/22/25 History isosorbide mononitrate 30 mg 30 mg PO DAILY 10/22/24 02/22/25 History tablet,extended release 24 hr isosorbide mononitrate 60 mg 60 mg PO DAILY 10/22/24 02/22/25 History tablet,extended release 24 hr lisinopril 20 mg tablet 20 mg PO DAILY 10/22/24 02/22/25 History metoprolol succinate 100 mg 100 mg PO TID 10/22/24 02/22/25 History tablet,extended release 24 hr multivitamin 1 tablet PO DAILY 10/22/24 02/22/25 History omeprazole 20 mg capsule,delayed 20 mg PO DAILY 10/22/24 02/22/25 History release oxybutynin chloride 5 mg tablet 5 mg PO TID 10/22/24 02/22/25 History pregabalin 50 mg capsule 100 mg PO TID 10/22/24 02/22/25 History rosuvastatin 10 mg tablet 10 mg PO DAILY 10/22/24 02/22/25 History semaglutide 2 mg/dose (8 mg/3 mL) 2 mg subcut WEEKLY 02/12/25 02/22/25 History subcutaneous pen injector (Ozempic) cholecalciferol (vitamin D3) 125 125 mcg PO DAILY 02/18/25 02/22/25 History mcg (5,000 unit) tablet (Vitamin D3) cyclobenzaprine 5 mg tablet 5 mg PO HS #30 tabs 02/21/25 02/22/25 Rx oxycodone 5 mg tablet 5 mg PO Q4H PRN pain #32 tabs 02/21/25 02/22/25 Rx sennosides 8.6 mg tablet (senna) 8.6 mg PO BID PRN constipation #30 02/21/25 02/22/25 Rx tabs Allergies Allergy/AdvReac Type Severity Reaction Status Date / Time propoxyphene (From Allergy Intermediate Nausea and Verified 02/22/25 15:27 Darvocet-N) Vomiting adhesive Allergy Rash Verified 02/22/25 15:27 codeine Allergy Nausea and Verified 02/22/25 15:27 Vomiting Penicillins Allergy Rash Verified 02/22/25 15:27 Sulfa (Sulfonamide Allergy Unknown Verified 02/22/25 15:27 Antibiotics) Vital Signs Vital Signs - 24 hr 02/23/25 13:54 02/23/25 20:00 02/23/25 21:09 Temperature 97.9 F Pulse Rate 69 Respiratory Rate 14 Blood Pressure 138/69 Pulse Oximetry 94 95 Oxygen Delivery Room Air Room Air Fraction of Inspired Oxygen 21 02/23/25 22:00 02/24/25 06:00 02/24/25 09:50 Temperature 98.5 F 98.1 F Pulse Rate 65 67 74 Respiratory Rate 16 18 Blood Pressure 149/73 H 125/61 Pulse Oximetry 99 97 Oxygen Delivery Fraction of Inspired Oxygen 02/24/25 12:00 Temperature Pulse Rate Respiratory Rate Blood Pressure Pulse Oximetry Oxygen Delivery Room Air Fraction of Inspired Oxygen Exam Const: Other: A&O x4. Calm, comfortable, no acute distress. Sitting comfortably in her chair. Resp: Effort & Inspection: normal respiratory effort Skin: Other: Incisions well approximated and healing nicely. No erythema, warmth, drainage, dehiscence. Neuro: Other: Normal bilateral lower extremity strength. Sensation to light touch intact. Ambulated to bathroom with assist x2 while I was in the room, relatively normal gait. Results Labs 02/24/25 10:26 02/24/25 10:26 Labs: Short CBC 02/24/25 Range/Units 10:26 WBC 8.0 (4.5-10.0) K/mm3 Hgb 11.4 L (12.0-15.0) g/dL Hct 35.7 L (37.0-47.0) % Plt Count 248 (150-375) k/mm3 BMP 02/24/25 10:26 Sodium 137 Potassium 3.8 Chloride 104 Carbon Dioxide 26 BUN 41 H D Creatinine 1.07 H Glucose 164 H Calcium 9.9 Liver Function 02/24/25 Range/Units 10:26 Total Bilirubin 0.5 (0.2-1.3) mg/dL AST 29 (14-36) U/L ALT 19 (6-35) U/L Alkaline Phosphatase 64 (38-126) U/L Albumin 3.7 (3.5-5.1) g/dL
[2025-02-24 14:00] VITALS: BP 130/64; PULSE 77; RESP 16; TEMP 36.7; O2SAT 97
[2025-02-24 20:21] VITALS: BP 121/55; PULSE 65; RESP 18; TEMP 36.7; O2SAT 100
[2025-02-24] MEDS: SENNA/DOCUSATE SODIUM TABLET 1 TAB PO (20:56)
[2025-02-25 05:51] LABS: Hematocrit 36.0 % (37.0-47.0); Hemoglobin 11.5 g/dL (12.0-15.0); Mean Corpuscular HGB Conc 31.9 g/dl (32-36); Mean Corpuscular Hemoglobin 30.6 pg (26-34); Mean Corpuscular Volume 95.7 fl (80-100); Platelet Count Result 223 k/mm3 (150-375); Red Blood Count 3.76 M/mm3 (4.2-5.4); White Blood Count 7.5 K/mm3 (4.5-10.0)
[2025-02-25] MEDS: ACETAMINOPHEN 325 MG TABLET 650 MG PO ×3 (05:55→17:15)
[2025-02-25 06:00] VITALS: BP 115/58; PULSE 62; RESP 18; TEMP 36.7; O2SAT 96
[2025-02-25 06:10] LABS: Alanine Aminotransferase 19 U/L (6-35); Albumin Level 3.8 g/dL (3.5-5.1); Alkaline Phosphatase 63 U/L (38-126); Anion Gap 7 mmol/L (4-12); Aspartate Amino Transferase 29 U/L (14-36); Bilirubin,Total 0.7 mg/dL (0.2-1.3); Blood Urea Nitrogen 37 mg/dL (7-17); Calcium 10.1 mg/dL (8.4-10.2); Carbon Dioxide 29 mmol/L (22-30); Chloride 102 mmol/L (98-107); Estimated CRCL calculation 60 ml/min; Estimated Glomerular Filt Rate 54; Glucose 120 mg/dL (65-110); Potassium 3.6 mmol/L (3.4-5.0); Sodium 138 mmol/L (137-145); Total Protein 6.9 g/dL (6.3-8.2)
--- NOTE | 2025-02-25 06:49 | PC.NURSE ---
Pt has been confrontational and argumentative throughout the night. She makes very snarky hateful remarks when in room. Myself and aid have been going in her room together. Has purposely been setting off bed alarm because she says we are keeping her prisoner. She has refused her fluids overnight.
--- NOTE | 2025-02-25 08:01 | PM.IMPN ---
Progress Note: A&P Assessment and Plan (1) MELISSA (acute kidney injury): Code(s): N17.9 - Acute kidney failure, unspecified Status: Acute Assessment and Plan: BUN/Cr 61/1.72 with GFR 29 on admission, previously 1.18 on 02/12/25 Improved with fluids, currently BUN/Cr 37/1.01 with GFR 54 Hold lisinopril, allopurinol and other nephrotoxic medications blood pressures remain stable despite being off lisinopril, continue to monitor Renally dose medications Monitor I/O Resolved. BUN/Cr down tending. (2) Status post lumbar laminectomy: Code(s): Z98.890 - Other specified postprocedural states Status: Acute Assessment and Plan: s/p Right L2-3, L4-5 and L5-S1 hemilaminectomy on 02/18/[address] Houser Pain management and muscle relaxers Fall precaution Neurosurgery consulted pending recommendations No signs/symptoms of infection or spinal hematoma Continue PT/OT. No bending, twisting, lifting >10lbs Incision can be HORACIO, ok to wash gently (3) Generalized weakness: Code(s): R53.1 - Weakness Status: Acute Assessment and Plan: Postop pain verses MELISSA versus other PT OT eval and treat Recommending SNF, patient is agreeable. Care coordination following Fall precaution May need placement (4) Diabetes: Code(s): E11.9 - Type 2 diabetes mellitus without complications Status: Acute Assessment and Plan: - hypoglycemia protocol - POC blood glucose ACHS - home medication - ozempic - correct regimen ordered - low dose TIDWM and HS - A1C 6.3 Glucose stable. Continue to monitor. (5) CHF (congestive heart failure): Code(s): I50.9 - Heart failure, unspecified Status: Acute Assessment and Plan: Continue Lasix as renal function is improving overall. Monitor for any s/s of fluid overload. Consider ECHO if any sign of decompensation as there is no ECHO listed in the EMR. Daily weights. (6) CAD (coronary artery disease): Code(s): I25.10 - Atherosclerotic heart disease of [place] coronary artery without angina pectoris Status: Acute Assessment and Plan: Continue metoprolol, Imdur, hold lisinopril for MELISSA Time Spent With Patient Time with patient: 25 - 35 minutes Subjective Date/time seen: 02/25/25 08:01 Interval history: 74-year-old female past medical history of CAD, CHF on diuretics hypertension, gout, neuropathy, MAJO, morbid obesity diabetes on 02/18/2025 presents the hospital disability unable to take care of herself at home. Patient is pleasant lying comfortably in bed. She is she said she is tired because she had no sleep overnight. She endorses slight lower back pain but has no other complaints denying mellitus type tingling/numbness or shooting guns extremities trauma she continues to work with therapy is recommending SNF placement and patient is agreeable, care coordination is following. Patient has no other complaints denying chest pain, shortness for breath, palpitations, nausea/vomiting, abdominal pain. Review of Systems Review of Systems: All systems reviewed & are unremarkable except as noted in HPI and below Exam Narrative: AF HR 70 RR 18 Spo2 96 BP 115/58 General: female in no acute respiratory distress who is nontoxic appearing, sitting up in chair HEENT: Normocephalic. Atraumatic. Extraocular movement intact. Sclera clear and anicteric. No facial asymmetry. Chest: Lungs are clear to auscultation bilaterally. CV: Heart was regular rate and rhythm. Abd: Abdomen was soft. Nontender. Nondistended. Positive bowel sounds. Ext: No clubbing, cyanosis, or edema. DP pulses bilaterally. Neuro: Patient is alert and oriented x3. Speech is clear. Objective Data Vital Signs Vital Signs: Vital Signs - 24 hr 02/24/25 09:40 02/24/25 09:50 02/24/25 12:00 Temperature Pulse Rate 74 Respiratory Rate Blood Pressure Pulse Oximetry Oxygen Delivery Room Air Room Air 02/24/25 14:00 02/24/25 20:00 02/24/25 20:21 Temperature 98.0 F 98.1 F Pulse Rate 77 65 Respiratory Rate 16 18 Blood Pressure 130/64 121/55 L Pulse Oximetry 97 100 Oxygen Delivery Room Air 02/25/25 06:00 Temperature 98.0 F Pulse Rate 62 Respiratory Rate 18 Blood Pressure 115/58 L Pulse Oximetry 96 Oxygen Delivery Intake/Output Intake/Output: Intake & Output 02/22/25 02/23/25 02/24/25 02/25/25 23:59 23:59 23:59 23:59 Intake Total 500 2469.5 960 250 Output Total 400 1900 1200 Balance 100 569.5 -240 250 Meds/Results Medications: Active Medications Generic Name Dose Route Start Last Admin Trade Name Freq PRN Reason Stop Dose Admin Acetaminophen 650 mg 02/22/25 17:35 Acetaminophen 325 Mg Tablet PO Q4H PRN Mild Pain (1-3) or Fever Acetaminophen 650 mg 02/22/25 18:50 02/25/25 05:55 Acetaminophen 325 Mg Tablet PO 650 mg Q6HR BRENNA Administration Hydrocodone Bitart/Acetaminophen 1 tab 02/22/25 17:35 Hydrocodone/Acetaminophen (*Crx) 5-325 Mg Tablet PO Q4H PRN Pain Rated 4-6 Dextrose 12.5 gm 02/22/25 18:45 Dextrose 50% 25 Gm/50 Ml Syringe IV PUSH PRN PRN Hypoglycemia Protocol Felodipine 5 mg 02/23/25 09:00 02/24/25 09:50 Felodipine 5 Mg Tab Cr PO 5 mg DAILY BRENNA Administration Furosemide 20 mg 02/23/25 09:00 02/24/25 09:50 Furosemide 20 Mg Tablet PO 20 mg QAM BRENNA Administration Glucagon 1 mg 02/22/25 18:45 Glucagon For Inj 1 Mg Vial IM PRN PRN Hypoglycemia Protocol Glucose 15 gm 02/22/25 18:45 Glucose Oral Gel 15 Gm Of Glucse In 37.5 Gm Tube PO PRN PRN Hypoglycemia Protocol Heparin Sodium (Porcine) 5,000 units 02/23/25 09:00 02/24/25 20:56 Heparin Sodium 5,000 Units/Ml Vial SUB-Q 5,000 units Q12HR BRENNA Administration Sodium Chloride 1,000 mls @ 75 mls/hr 02/22/25 18:45 02/25/25 03:30 Normal Saline Iv IV CONT Not Given .[id number] BRENNA Dextrose 1,000 mls @ 100 mls/hr 02/22/25 18:45 Dextrose 5% 1,000 Ml IVPB PRN PRN Hypoglycemia Protocol Insulin Aspart 2 - 5 units 02/23/25 08:00 02/24/25 17:25 Insulin Aspart (*Bkc) 100 Units/Ml SUB-Q Not Given TIDWM BRENNA Protocol Insulin Aspart 1 - 2 units 02/22/25 21:00 02/24/25 20:55 Insulin Aspart (*Bkc) 100 Units/Ml SUB-Q Not Given HS COUNT INCLUDES [facility] Protocol Isosorbide Mononitrate 60 mg 02/23/25 09:00 02/24/25 09:51 Isosorbide Mononitrate 60 Mg Tab.Er.24h PO 60 mg DAILY BRENNA Administration Isosorbide Mononitrate 30 mg 02/23/25 09:00 02/24/25 09:51 Isosorbide Mononitrate 30 Mg Tab.Er.24h PO 30 mg DAILY BRENNA Administration Methocarbamol 750 mg 02/22/25 21:00 02/24/25 20:56 Methocarbamol 750 Mg Tablet PO 750 mg QID COUNT INCLUDES [facility] Administration Metoprolol Succinate 200 mg 02/23/25 09:00 02/24/25 09:50 Metoprolol Succinate Ext Rel 100 Mg Tabcr PO 200 mg DAILY COUNT [facility] Administration Morphine Sulfate 2 mg 02/22/25 17:35 Morphine Sulfate (*Crx) 2 Mg/Ml Inj IV PUSH Q2H PRN Pain Rated 7-10 Ondansetron HCl 4 mg 02/22/25 17:35 Ondansetron Inj 4 Mg/2 Ml Vial IV PUSH Q4H PRN Nausea Oxybutynin Chloride 5 mg 02/23/25 09:00 02/24/25 17:27 Oxybutynin Chloride 5 Mg Tablet PO 5 mg TID COUNT [facility]CLUDES [facility] Administration Oxycodone HCl 5 mg 02/22/25 18:46 Oxycodone Hcl (*Crx) 5 Mg Tab Ir PO Q4H PRN Pain Rated 4-6 Oxycodone HCl 10 mg 02/22/25 18:46 Oxycodone Hcl (*Crx) 5 Mg Tab Ir PO Q4H PRN Pain Rated 7-10 Polyethylene Glycol 17 gm 02/24/25 13:01 Polyethylene Glycol 3350 17 Gm Powd.Pack PO QAM PRN Constipation Rosuvastatin Calcium 10 mg 02/23/25 09:00 02/24/25 09:51 Rosuvastatin 10 Mg Tablet PO 10 mg DAILY COUNT INCLUDES [facility] Administration Senna 8.6 mg 02/22/25 22:22 02/23/25 21:45 Sennosides 8.6 Mg Tablet PO 8.6 mg BID PRN Administration constipation Senna/Docusate Sodium 1 tab 02/22/25 21:00 02/24/25 20:56 Senna/Docusate Sodium Tablet PO 1 tab HS BRENNA Administration Radiology Results: ITS Impressions Chest X-Ray 02/22/25 16:09 IMPRESSION: No acute cardiopulmonary pathology. Abdomen X-Ray 02/24/25 15:43 IMPRESSION: No radiographic evidence of obstruction or ileus. Hepatomegaly. Labs Labs: Laboratory Results - last 24 hr 02/24/25 02/24/25 02/24/25 08:20 10:26 11:44 WBC 8.0 RBC 3.74 L Hgb 11.4 L Hct 35.7 L MCV 95.5 MCH 30.5 MCHC 31.9 L RDW 15.5 H Plt Count 248 MPV 9.7 Sodium 137 Potassium 3.8 Chloride 104 Carbon Dioxide 26 Anion Gap 7 BUN 41 H D Creatinine 1.07 H Estim Creat Clear Calc 59 Estimated GFR 50 L Glucose 164 H POC Capillary Glucose 126 H 138 H Calcium 9.9 Total Bilirubin 0.5 AST 29 ALT 19 Alkaline Phosphatase 64 Total Protein 6.8 Albumin 3.7 02/24/25 02/24/25 02/25/25 16:41 20:16 05:24 WBC 7.5 RBC 3.76 L Hgb 11.5 L Hct 36.0 L MCV 95.7 MCH 30.6 MCHC 31.9 L RDW 15.2 H Plt Count 223 MPV 10.1 Sodium 138 Potassium 3.6 Chloride 102 Carbon Dioxide 29 Anion Gap 7 BUN 37 H Creatinine 1.01 H Estim Creat Clear Calc 60 Estimated GFR 54 L Glucose 120 H POC Capillary Glucose 151 H 153 H Calcium 10.1 Total Bilirubin 0.7 AST 29 ALT 19 Alkaline Phosphatase 63 Total Protein 6.9 Albumin 3.8 Quality VTE Prophylaxis VTE prophylaxis: pharmacologic ordered
[2025-02-25 08:56] VITALS: PULSE 70
[2025-02-25] MEDS: METOPROLOL SUCCINATE EXT REL 100 MG TABCR 200 MG PO (08:56)
[2025-02-25] MEDS: FUROSEMIDE 20 MG TABLET PO (08:56)
[2025-02-25] MEDS: FELODIPINE 5 MG TAB CR PO (08:57)
[2025-02-25] MEDS: ISOSORBIDE MONONITRATE 30 MG TAB.ER.24H PO (08:57)
[2025-02-25] MEDS: ISOSORBIDE MONONITRATE 60 MG TAB.ER.24H PO (08:58)
[2025-02-25] MEDS: oxyCODONE HCL (*CRX) 5 MG TAB IR 10 MG PO (09:01)
[2025-02-25] MEDS: ROSUVASTATIN 10 MG TABLET PO (09:13)
[2025-02-25 14:00] VITALS: BP 132/67; PULSE 70; RESP 18; TEMP 36.6; O2SAT 96
[2025-02-25] MEDS: LORATADINE 5 MG TABLET PO (14:56)
--- NOTE | 2025-02-25 16:19 | WPDNEUROSGPN ---
Progress Note: A&P Assessment and Plan (1) Status post lumbar laminectomy: Code(s): Z98.890 - Other specified postprocedural states Status: Acute Assessment and Plan: Charleen is doing well status post lumbar laminectomy. I agree, however, that she would do well with a short stay in rehab to help improve her functional abilities before returning home on her own. That evaluation is underway. She will follow-up with me in 4-5 weeks in the office. Subjective Date/time seen: 02/25/25 16:19 Interval history: Charleen is 1 week status post lumbar laminectomy done for stenosis. She spent a fair amount of time in the hospital and after discharge her family had difficulty taking care of her at home so she came back to the hospital. She is now awaiting rehab placement. She does not report any significant pain and states that her extremities are functioning normally. She is able to walk with a walker in the room and feels as though she can make transfers independently. Exam Narrative: Strength is normal the bilateral lower extremities to direct confrontation. Sensation is intact to light touch throughout the lower extremities. Her wound is clean, dry and intact Objective Data Vital Signs Vital Signs: Vital Signs - 24 hr 02/24/25 20:00 02/24/25 20:21 02/25/25 06:00 Temperature 98.1 F 98.0 F Pulse Rate 65 62 Respiratory Rate 18 18 Blood Pressure 121/55 L 115/58 L Pulse Oximetry 100 96 Oxygen Delivery Room Air 02/25/25 08:55 02/25/25 08:56 02/25/25 14:00 Temperature 97.9 F Pulse Rate 70 70 Respiratory Rate 18 Blood Pressure 132/67 Pulse Oximetry 96 Oxygen Delivery Room Air Intake/Output Intake/Output: Intake & Output 02/22/25 02/23/25 02/24/25 02/25/25 23:59 23:59 23:59 23:59 Intake Total 500 2469.5 960 730 Output Total 400 1900 1200 Balance 100 569.5 -240 730 Meds/Results Medications: Active Medications Generic Name Dose Route Start Last Admin Trade Name Freq PRN Reason Stop Dose Admin Acetaminophen 650 mg 02/22/25 17:35 Acetaminophen 325 Mg Tablet PO Q4H PRN Mild Pain (1-3) or Fever Acetaminophen 650 mg 02/22/25 18:50 02/25/25 12:50 Acetaminophen 325 Mg Tablet PO 650 mg Q6HR BRENNA Administration Hydrocodone Bitart/Acetaminophen 1 tab 02/22/25 17:35 Hydrocodone/Acetaminophen (*Crx) 5-325 Mg Tablet PO Q4H PRN Pain Rated 4-6 Dextrose 12.5 gm 02/22/25 18:45 Dextrose 50% 25 Gm/50 Ml Syringe IV PUSH PRN PRN Hypoglycemia Protocol Felodipine 5 mg 02/23/25 09:00 02/25/25 08:57 Felodipine 5 Mg Tab Cr PO 5 mg DAILY BRENNA Administration Furosemide 20 mg 02/23/25 09:00 02/25/25 08:56 Furosemide 20 Mg Tablet PO 20 mg QAM BRENNA Administration Glucagon 1 mg 02/22/25 18:45 Glucagon For Inj 1 Mg Vial IM PRN PRN Hypoglycemia Protocol Glucose 15 gm 02/22/25 18:45 Glucose Oral Gel 15 Gm Of Glucse In 37.5 Gm Tube PO PRN PRN Hypoglycemia Protocol Heparin Sodium (Porcine) 5,000 units 02/23/25 09:00 02/25/25 08:56 Heparin Sodium 5,000 Units/Ml Vial SUB-Q 5,000 units Q12HR BRENNA Administration Dextrose 1,000 mls @ 100 mls/hr 02/22/25 18:45 Dextrose 5% 1,000 Ml IVPB PRN PRN Hypoglycemia Protocol Insulin Aspart 2 - 5 units 02/23/25 08:00 02/25/25 12:50 Insulin Aspart (*Bkc) 100 Units/Ml SUB-Q Not Given TIDWM [facility] Protocol Insulin Aspart 1 - 2 units 02/22/25 21:00 02/24/25 20:55 Insulin Aspart (*Bkc) 100 Units/Ml SUB-Q Not Given HS [facility] Protocol Isosorbide Mononitrate 60 mg 02/23/25 09:00 02/25/25 08:58 Isosorbide Mononitrate 60 Mg Tab.Er.24h PO 60 mg DAILY BRENNA Administration Isosorbide Mononitrate 30 mg 02/23/25 09:00 02/25/25 08:57 Isosorbide Mononitrate 30 Mg Tab.Er.24h PO 30 mg DAILY BRENNA Administration Loratadine 5 mg 02/25/25 13:52 02/25/25 14:56 Loratadine 5 Mg Tablet PO 5 mg DAILY PRN Administration Allergic Symptoms Methocarbamol 750 mg 02/22/25 21:00 02/25/25 12:50 Methocarbamol 750 Mg Tablet PO 750 mg QID BRENNA Administration Metoprolol Succinate 200 mg 02/23/25 09:00 02/25/25 08:56 Metoprolol Succinate Ext Rel 100 Mg Tabcr PO 200 mg DAILY BRENNA Administration Morphine Sulfate 2 mg 02/22/25 17:35 Morphine Sulfate (*Crx) 2 Mg/Ml Inj IV PUSH Q2H PRN Pain Rated 7-10 Ondansetron HCl 4 mg 02/22/25 17:35 Ondansetron Inj 4 Mg/2 Ml Vial IV PUSH Q4H PRN Nausea Oxybutynin Chloride 5 mg 02/23/25 09:00 02/25/25 12:50 Oxybutynin Chloride 5 Mg Tablet PO 5 mg TID BRENNA Administration Oxycodone HCl 5 mg 02/22/25 18:46 Oxycodone Hcl (*Crx) 5 Mg Tab Ir PO Q4H PRN Pain Rated 4-6 Oxycodone HCl 7.5 mg 02/25/25 14:41 Oxycodone Hcl (*Crx) 2.5 Mg Tab Ir PO Q4H PRN Pain Rated 7-10 Polyethylene Glycol 17 gm 02/24/25 13:01 02/25/25 14:55 Polyethylene Glycol 3350 17 Gm Powd.Pack PO 17 gm QAM PRN Administration Constipation Rosuvastatin Calcium 10 mg 02/23/25 09:00 02/25/25 09:13 Rosuvastatin 10 Mg Tablet PO 10 mg DAILY BRENNA Administration Senna 8.6 mg 02/22/25 22:22 02/23/25 21:45 Sennosides 8.6 Mg Tablet PO 8.6 mg BID PRN Administration constipation Senna/Docusate Sodium 1 tab 02/22/25 21:00 02/24/25 20:56 Senna/Docusate Sodium Tablet PO 1 tab HS BRENNA Administration Radiology Results: ITS Impressions Chest X-Ray 02/22/25 16:09 IMPRESSION: No acute cardiopulmonary pathology. Abdomen X-Ray 02/24/25 15:43 IMPRESSION: No radiographic evidence of obstruction or ileus. Hepatomegaly. Labs Labs: Laboratory Results - last 24 hr 02/24/25 02/24/25 02/25/25 16:41 20:16 05:24 WBC 7.5 RBC 3.76 L Hgb 11.5 L Hct 36.0 L MCV 95.7 MCH 30.6 MCHC 31.9 L RDW 15.2 H Plt Count 223 MPV 10.1 Sodium 138 Potassium 3.6 Chloride 102 Carbon Dioxide 29 Anion Gap 7 BUN 37 H Creatinine 1.01 H Estim Creat Clear Calc 60 Estimated GFR 54 L Glucose 120 H POC Capillary Glucose 151 H 153 H Calcium 10.1 Total Bilirubin 0.7 AST 29 ALT 19 Alkaline Phosphatase 63 Total Protein 6.9 Albumin 3.8 02/25/25 02/25/25 08:05 11:30 WBC RBC Hgb Hct MCV MCH MCHC RDW Plt Count MPV Sodium Potassium Chloride Carbon Dioxide Anion Gap BUN Creatinine Estim Creat Clear Calc Estimated GFR Glucose POC Capillary Glucose 128 H 183 H Calcium Total Bilirubin AST ALT Alkaline Phosphatase Total Protein Albumin
[2025-02-25] MEDS: SENNA/DOCUSATE SODIUM TABLET 1 TAB PO (21:23)
[2025-02-25 22:00] VITALS: BP 126/69; PULSE 59; RESP 18; TEMP 36.9; O2SAT 94
[2025-02-26] MEDS: ACETAMINOPHEN 325 MG TABLET 650 MG PO ×3 (00:39→12:01)
--- NOTE | 2025-02-26 00:51 | PC.NURSE ---
Pts granddaughter showed up unexpectedly at 0045 w food. I told the waterworks pump station operator she could bring the food up but it was almost 0100 and could not stay. I woke pt up from sound sleep to tell her her granddaughter was here but that visiting hours are 8a-8p. Pt stated she had no idea that anyone was coming up and she didnt ask anyone to bring food.
[2025-02-26 05:16] LABS: Hematocrit 34.0 % (37.0-47.0); Hemoglobin 11.0 g/dL (12.0-15.0); Mean Corpuscular HGB Conc 32.4 g/dl (32-36); Mean Corpuscular Hemoglobin 31.2 pg (26-34); Mean Corpuscular Volume 96.3 fl (80-100); Platelet Count Result 220 k/mm3 (150-375); Red Blood Count 3.53 M/mm3 (4.2-5.4); White Blood Count 6.1 K/mm3 (4.5-10.0)
[2025-02-26 05:35] LABS: Alanine Aminotransferase 19 U/L (6-35); Albumin Level 3.6 g/dL (3.5-5.1); Alkaline Phosphatase 62 U/L (38-126); Anion Gap 5 mmol/L (4-12); Aspartate Amino Transferase 31 U/L (14-36); Bilirubin,Total 0.5 mg/dL (0.2-1.3); Blood Urea Nitrogen 35 mg/dL (7-17); Calcium 9.9 mg/dL (8.4-10.2); Carbon Dioxide 30 mmol/L (22-30); Chloride 103 mmol/L (98-107); Estimated CRCL calculation 58 ml/min; Estimated Glomerular Filt Rate 52; Glucose 112 mg/dL (65-110); Potassium 4.0 mmol/L (3.4-5.0); Sodium 138 mmol/L (137-145); Total Protein 6.4 g/dL (6.3-8.2)
[2025-02-26 06:00] VITALS: BP 146/66; PULSE 54; RESP 18; TEMP 36.4; O2SAT 94
[2025-02-26] MEDS: ONDANSETRON INJ 4 MG/2 ML VIAL IV PUSH (07:07)
[2025-02-26] MEDS: ISOSORBIDE MONONITRATE 30 MG TAB.ER.24H PO (09:12)
[2025-02-26 09:13] VITALS: PULSE 57
[2025-02-26] MEDS: METOPROLOL SUCCINATE EXT REL 100 MG TABCR 200 MG PO (09:13)
[2025-02-26] MEDS: ROSUVASTATIN 10 MG TABLET PO (09:13)
[2025-02-26] MEDS: FELODIPINE 5 MG TAB CR PO (09:15)
[2025-02-26] MEDS: FUROSEMIDE 20 MG TABLET PO (09:15)
[2025-02-26] MEDS: ISOSORBIDE MONONITRATE 60 MG TAB.ER.24H PO (09:15)
[2025-02-26] MEDS: LORATADINE 5 MG TABLET PO (12:08)
[2025-02-26 15:04] VITALS: BP 111/64; PULSE 62; RESP 18; TEMP 36.9; O2SAT 94
--- NOTE | 2025-02-26 15:36 | P.DS_ITS ---
DS: Admitting Diagnosis Discharge Date 02/26/2025 Admitting Diagnosis Postop weakness and disability Status post lumbar laminectomy DS: Discharge Diagnosis Discharge Diagnosis (1) MELISSA (acute kidney injury): Code(s): N17.9 - Acute kidney failure, unspecified Status: Acute (2) Status post lumbar laminectomy: Code(s): Z98.890 - Other specified postprocedural states Status: Acute (3) Generalized weakness: Code(s): R53.1 - Weakness Status: Acute (4) Diabetes: Code(s): E11.9 - Type 2 diabetes mellitus without complications Status: Acute (5) CHF (congestive heart failure): Code(s): I50.9 - Heart failure, unspecified Status: Acute (6) CAD (coronary artery disease): Code(s): I25.10 - Atherosclerotic heart disease of [place] coronary artery without angina pectoris Status: Acute DS: Summary Hospital Course Reason for hospitalization: Postop weakness and disability Status post lumbar laminectomy Hospital Course: Admission: 74-year-old female past medical history of CAD, CHF on diuretics hypertension, gout, neuropathy, MAJO, morbid obesity diabetes on 02/18/2025 presents the hospital disability unable to take care of herself at home. Patient is ex tremely poor historian. HPI is extremely limited. When asked why she came into the hospital she states that she is fine. There is nothing wrong with her. Per the ED note she is unable to care for herself at home and had acute pain that was not controlled. Patient does not know why she is taking Lasix In the Ed: Lab work shows hemoglobin 11.3, sodium of 135, BUN of 61, creatinine of 1.72 previous creatinine 1.18, GFR 29, UA negative for infectious process chest x-ray shows no acute process. Patient is being admitted for Melissa and possible placement Hospital Course: Patient was admitted to the medical unit for physical and occupational therapy and treatment for acute kidney injury. Patient's lisinopril and allopurinol were held in renal function monitored which improved. patient was postop 1 week following s/p Right L2-3, L4-5 and L5-S1 hemilaminectomy on 02/18/[address] Houser. during her hospitalization she was treated with pain management muscle relaxants with a consult to Physical and Occupational therapy due to inability to care for self at home post surgery. There is no evidence hematoma or spinal wound or infection. patient overall progressing with physical and occupational therapy was accepted to rehab. Patient was seen assessed at time of discharge in acute distress denied any further complaints labs reviewed vital stable. Patient will follow-up in 3 weeks Neurosurgery. Status at Discharge Functional status at discharge: uses cane/walker Overall status at discharge: patient is progressing back to baseline Time Spent with Patient Time attestation: Total time spent providing and/or coordinating discharge services: Time spent: Greater than 30 minutes Exam Narrative: General: female in no acute distress HEENT: Normocephalic. Atraumatic. Extraocular movement intact. Sclera clear and anicteric. No facial asymmetry. Chest: Lungs are clear to auscultation bilaterally. CV: Heart was regular rate and rhythm. Abd: Abdomen was soft. Nontender. Nondistended. Positive bowel sounds. Ext: No clubbing, cyanosis, or edema. DP pulses bilaterally. Neuro: Patient is alert and oriented x3. Speech is clear. DS: Data Data Completed and Pending Labs on day of discharge: Labs from last 24 hours 02/26/25 02/26/25 02/26/25 11:57 08:16 04:53 WBC 6.1 RBC 3.53 L Hgb 11.0 L Hct 34.0 L MCV 96.3 MCH 31.2 MCHC 32.4 RDW 15.3 H Plt Count 220 MPV 10.0 Sodium 138 Potassium 4.0 Chloride 103 Carbon Dioxide 30 Anion Gap 5 BUN 35 H Creatinine 1.05 H Estim Creat Clear Calc 58 Estimated GFR 52 L Glucose 112 H POC Capillary Glucose 131 H 122 H Calcium 9.9 Total Bilirubin 0.5 AST 31 ALT 19 Alkaline Phosphatase 62 Total Protein 6.4 Albumin 3.6 02/25/25 02/25/25 21:25 16:49 WBC RBC Hgb Hct MCV MCH MCHC RDW Plt Count MPV Sodium Potassium Chloride Carbon Dioxide Anion Gap BUN Creatinine Estim Creat Clear Calc Estimated GFR Glucose POC Capillary Glucose 127 H 109 H Calcium Total Bilirubin AST ALT Alkaline Phosphatase Total Protein Albumin Discharge Plan Discharge Attending physician on discharge: Nuria Haywood Consulting providers: Rosenda Ryder; Annalise Montano; Rosalinda Crowe; Gwen Ayers; Davy Houser; Brian Paula; Mary Benz; Dorian Jenkins; Sundar Ferrari Discharging Clinician: Annalise Montano Anticipated Discharge Date/Time: 02/26/25 15:21 Patient Disposition: SNF Activity: may shower and as tolerated Diet: diabetic Discharge Instructions: 1). Status post lumbar laminectomy * Continue PT/OT. 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 ? Keep track of any new symptoms or changes in your symptoms. ? Rest until you feel better. ? Be safe with medicines. Take your medicines exactly as prescribed. Call your doctor if you think you are having a problem with your medicine. ? Do not drive after taking a prescription pain medicine. ? Ensure to follow-up with primary care physician as indicated and provide updated medication list provided to you at discharge. When should you call for help? Call 911 anytime you think you may need emergency care. For example, call if: ? You passed out (lost consciousness). Call your doctor now or seek immediate medical care if: ? You have new symptoms like fever, difficulty breathing, Chest pain, vomiting, or rash. ? You have new or different pain. ? You are confused and are having trouble thinking clearly. ? Your symptoms are getting worse. Watch closely for changes in your health, and be sure to contact your doctor if: ? You do not get better as expected. Patient Instructions: Diabetes and Nutrition (DC), Diabetes and Exercise (DC), Laminectomy (DC) Patient Language: Persian Stand Alone Forms: General Discharge Information, Fpc Discharge Follow-up/Referrals: Davy Houser MD [Physician] - Keep Reg. Scheduled Appt. Discharge Medications: New acetaminophen 325 mg Tablet 650 mg PO Q4H PRN (Reason: Mild Pain (1-3) Or Fever) Qty: 10 0RF acetaminophen 325 mg Tablet 650 mg PO Q6HR Qty: 10 0RF sennosides-docusate sodium [Senokot-S] 8.6-50 mg Tablet 1 tab-cap PO BID Qty: 10 0RF insulin aspart U-100 [Novolog U-100 Insulin aspart] 100 unit/mL Solution 2 - 5 unit subcut TIDWM Qty: 10 0RF Protocol: Insulin Corrective Low-Dose Condition: glucose < 70 mg/dl Dose/Route: Follow Hypoglycemia Order Condition: glucose 70-200 mg/dl Dose/Route: No additional insulin Condition: glucose 201-250 mg/dl Dose/Route: 2 units sub-Q Condition: glucose 251-300 mg/dl Dose/Route: 3 units sub-Q Condition: glucose 301-350 mg/dl Dose/Route: 4 units sub-Q Condition: glucose 351-400 mg/dl Dose/Route: 5 units sub-Q Condition: glucose > 400 mg/dl Dose/Route: Call MD Protocol Text: *No Correction Dose at Bedtime* Rx Instructions: Until you resume ozempic then can stop polyethylene glycol 3350 [Miralax] 17 gram Powder In Packet 17 g PO QAM PRN (Reason: Constipation) Qty: 14 0RF metoprolol succinate [Toprol XL] 100 mg Tablet Extended Release 24 Hr 200 mg PO DAILY Qty: 10 0RF methocarbamol 750 mg Tablet 750 mg PO QID Qty: 10 0RF lactulose 10 gram/15 mL solution 20 g PO TID Qty: 237 0RF Rx Instructions: Until BM Continued omeprazole 20 mg capsule,delayed release(DR/EC) 20 mg PO DAILY isosorbide mononitrate 30 mg tablet extended release 24 hr 30 mg PO DAILY Patient Comments: =90mg daily isosorbide mononitrate 60 mg tablet extended release 24 hr 60 mg PO DAILY Patient Comments: =90mg Daily lisinopril 20 mg tablet 20 mg PO DAILY furosemide 20 mg tablet 20 mg PO QAM felodipine 5 mg tablet extended release 24 hr 5 mg PO DAILY rosuvastatin 10 mg tablet 10 mg PO DAILY cyanocobalamin (vitamin B-12) 1,000 mcg capsule 1,000 mcg PO DAILY multivitamin Tablet 1 tablet PO DAILY pregabalin 50 mg capsule 100 mg PO TID oxybutynin chloride 5 mg tablet 5 mg PO TID ascorbic acid (vitamin C) 500 mg capsule 500 mg PO DAILY cholecalciferol (vitamin D3) [Vitamin D3] 125 mcg (5,000 unit) tablet 125 mcg PO DAILY cyclobenzaprine 5 mg tablet 5 mg PO HS Qty: 30 0RF Held allopurinol 300 mg tablet 300 mg PO DAILY Hold Instructions: Resume on 03/05/25. garlic 150 mg tablet 150 mg PO DAILY Hold Instructions: Resume on 03/05/25. Ozempic 2 mg/dose (8 mg/3 mL) pen injector 2 mg SUBCUT WEEKLY Hold Instructions: Resume on 03/05/25. Patient Comments: TUESDAYS Discontinued metoprolol succinate 100 mg tablet extended release 24 hr 100 mg PO TID sennosides [senna] 8.6 mg tablet 8.6 mg PO BID PRN (Reason: constipation) Qty: 30 2RF oxycodone 5 mg tablet 5 mg PO Q4H PRN (Reason: pain) Qty: 32 0RF Date of admission: 02/22/25 17:35 Primary Care Provider: MelloOumar Admitting Provider: Valdez Chaudhry Attending physician on admission: Nuria Haywood Condition: Stable Quality VTE Prophylaxis VTE prophylaxis: pharmacologic ordered -Patient's previous records reviewed on admission -ER notes reviewed in detail on admission -discussed all findings and current treatment plan with patient/Family/POA -Consultations reviewed for recommendations -Patient's disposition for safe discharge discussed with disability case manager Dictation performed by [employer] direct speech recognition software, therefore grommet worker variants and typographical errors may occur. Hospitalist MIPS Heart Failure (Exclusion) Patient has history of Heart Transplant or Left Ventricular Assistive Device?: No IF YES, STOP HERE Heart Failure (Qualifier) Patient has current or prior documentation of LVEF less than or equal to 40%, or mod/servere depressed LVSF?: No IF NO, STOP HERE
== END 2025-02-26 16:10 ==
LOC: ANHED 17:49 → ANH3MED 02-24 06:54
PROVIDERS: Nurse Practitioner Adult Health; Nurse Practitioner Gerontology; Student in an Organized Health Care Education/Training Program; Admitting Provider Internal Medicine; Emergency Provider Emergency Medicine; PCP Family Medicine; Visit Provider Family Medicine
DX: N17.9 Acute kidney failure, unspecified (principal); R53.1 Weakness; W19.XXXA Unspecified fall, initial encounter; M96.1 Postlaminectomy syndrome, not elsewhere classified; I25.10 Atherosclerotic heart disease of native coronary artery without angina pectoris; I73.9 Peripheral vascular disease, unspecified; G47.33 Obstructive sleep apnea (adult) (pediatric); E11.9 Type 2 diabetes mellitus without complications; F41.9 Anxiety disorder, unspecified; E66.01 Morbid (severe) obesity due to excess calories; Z68.43 Body mass index [BMI] 50.0-59.9, adult; I50.9 Heart failure, unspecified; I11.0 Hypertensive heart disease with heart failure; Z79.4 Long term (current) use of insulin
CPT/HCPCS: 36415; 71046; 74018; 80048; 80053; 81003; 82948; 83036; 83605; 85025; 85027; 93005; 96361; 96375; 97110; 97162; 97166; 97530; 97535; 99285; A9270; G0378; J1644; J2405; J7030; J7040